=== PATIENT | female | born 1975 | race Two or more races ===

== ENCOUNTER → 2019-12-12 13:06 | Outpatient (BNVA) | payer OTHER, SELFPAY | PROVIDERS: PCP Internal Medicine; Referring Provider Internal Medicine; Visit Provider Physician Assistant | DX: E66.3 Overweight (principal); Z68.28 Body mass index [BMI] 28.0-28.9, adult; Z98.84 Bariatric surgery status | CPT/HCPCS: 99212 ==

== ENCOUNTER → 2020-03-25 08:16 | Outpatient (BNVA) | payer OTHER, SELFPAY | PROVIDERS: Visit Provider Physician Assistant ==

== ENCOUNTER 2020-04-14 12:12 | Outpatient (REF) | payer OTHER, SELFPAY ==
--- NOTE | ~2020-04-14 | MM_ITS ---
EXAMINATION: MM DIAGNOSTIC DIGITAL BREAST TOMOSYNTHESIS, BILATERAL US DIAGNOSTIC ULTRASOUND BREAST, LEFT CLINICAL INFORMATION: Probable benign left retroareolar nodule for follow-up. Due for yearly. No known family history breast cancer. The lifetime risk of breast cancer based on the Tyrer-Cuzick Model is 11%. COMPARISON: Mammography: 03/04/2019, 08/24/2018, 02/23/2018, 02/14/2018 (BI-RADS 0), 01/04/2017 (baseline); targeted left breast ultrasound 03/04/2019, 08/24/2018, 02/23/2018. TECHNIQUE: Digital breast tomosynthesis is performed in both the craniocaudal and mediolateral oblique views along with computer-aided detection (CAD). Synthesized 2D images are generated from the tomosynthesis. Additional left MLO view is provided. Ultrasound left breast is targeted to the periareolar region. Grayscale imaging and color Doppler are performed without and with harmonics. FINDINGS: There are scattered areas of fibroglandular density (ACR BI-RADS breast composition Category b). Parenchymal pattern is similar to prior exams. There is no developing density or interval mass or architectural abnormality. The left breast nodule outer periareolar region is stable. No abnormal calcifications. The skin contours are smooth. Axillary nodes are stable. There are some fine calcifications in the bilateral nodes similar to prior studies. Ultrasound left breast again shows periareolar nodule 5:00 position areolar margin under 1 cm similar in size and contour to prior studies. Again, there are scattered low level internal echoes. Today's exam shows scattered internal color flow representing change from prior studies. Therefore, ultrasound guided core biopsy is recommended to exclude papilloma. Results are discussed with the patient at time of visit. Results and recommendation called to medical field representative (Edel) for Dr. Clifford on 04/14/2020. MM/MM tomosynthesis diagnostic BI IMPRESSION: 1. Left: Although the periareolar nodule is stable in size and smooth in contour, there is scattered internal color flow on ultrasound. This represents change from prior studies. Possibility of a papilloma cannot be excluded. 2. Right: No mammographic evidence of malignancy. ASSESSMENT: BI-RADS 4: Suspicious (subcategory 4A: Low suspicion for malignancy) RECOMMENDATION: Ultrasound-guided core sampling left breast nodule. This patient's information was entered into a reminder system with a target due date for their next mammogram.
== END 2020-04-14 12:13 | disposition home or self-care (01) ==
LOC: HO.MAMMO 12:12
PROVIDERS: PCP Internal Medicine; Visit Provider Internal Medicine
DX: R92.1 Mammographic calcification found on diagnostic imaging of breast (principal)
CPT/HCPCS: 76642; 77062; 77066

== ENCOUNTER → 2020-04-15 08:11 | Outpatient (BNVA) | payer OTHER, SELFPAY | PROVIDERS: Visit Provider Dietitian, Registered ==

== ENCOUNTER → 2020-04-20 08:09 | Outpatient (BNVA) | payer OTHER, SELFPAY | PROVIDERS: Visit Provider Surgery | DX: R92.8 Other abnormal and inconclusive findings on diagnostic imaging of breast (principal) | CPT/HCPCS: 99202 ==

== ENCOUNTER 2020-04-21 07:44 | Outpatient (REF) | payer OTHER, SELFPAY ==
--- NOTE | ~2020-04-21 | MM_ITS ---
EXAMINATION: ULTRASOUND GUIDED CORE BIOPSY BREAST, LEFT POST PROCEDURE DIGITAL MAMMOGRAM, LEFT CLINICAL INFORMATION: Periareolar cystic nodule 5:00 position under 1 cm with scattered specular echoes with comet tail ring down and some color flow on Doppler. Margins are circumscribed. COMPARISON: Mammography and left breast ultrasound 04/14/2020. FINDINGS: Proper informed consent is obtained from the patient after discussion of the procedure, potential risks and complications, and alternatives. Patient was given an opportunity for questions. The patient appeared to understand. The patient consented to the procedure and signed the consent form. GUIDANCE: Ultrasound-guided; aseptic technique. LESION: Circumscribed nodule periareolar 5:00 position. APPROACH: Oblique lateral medial. ANESTHESIA: 8 mL 1% lidocaine. DERMATOTOMY: Single skin tonia dermatotomy performed. NEEDLE: 14-gauge Achieve core biopsy device with 13.5-gauge co-axial guide needle. CORES: 5. CLIP: HydroMARK; shape: butterfly. POST PROCEDURE UNILATERAL DIGITAL MAMMOGRAM: The post biopsy mammogram is performed in separate room using separate digital mammography equipment from the biopsy procedure. CC and ML views are obtained. There are scattered areas of fibroglandular density (breast composition category: b). The clip marker is in position. No gross hematoma. The patient tolerated the procedure well. No immediate complications. Home instructions reviewed with the patient. Final pathology results are pending. MM/MM diagnostic mammo unilat LT IMPRESSION: 1. Status post ultrasound-guided core biopsy left breast. 2. Clip placed: HydroMARK; shape: butterfly. 3. Pathology pending. An addendum report will be issued.
== END 2020-04-21 07:45 | disposition home or self-care (01) ==
LOC: HO.MAMMO 07:44
PROVIDERS: PCP Internal Medicine; Visit Provider Surgery
DX: R92.8 Other abnormal and inconclusive findings on diagnostic imaging of breast (principal)
CPT/HCPCS: 19083; 77065; 88305

== ENCOUNTER → 2020-04-29 14:33 | Outpatient (BNVA) | payer OTHER, SELFPAY | PROVIDERS: Visit Provider Surgery ==

== ENCOUNTER → 2020-05-22 08:12 | Outpatient (BNVA) | payer OTHER, SELFPAY | PROVIDERS: PCP Internal Medicine; Visit Provider Physician Assistant | DX: Z98.84 Bariatric surgery status (principal); E66.3 Overweight; F32.9 Major depressive disorder, single episode, unspecified ==

== ENCOUNTER 2020-09-18 13:21 | Outpatient (REF) | payer OTHER, SELFPAY ==
--- NOTE | ~2020-09-18 | MM_ITS ---
EXAMINATION: MM DIAGNOSTIC DIGITAL BREAST TOMOSYNTHESIS, LEFT US DIAGNOSTIC ULTRASOUND BREAST, LEFT CLINICAL INFORMATION: Follow-up benign left ultrasound guided biopsy 04/21/2020 to reestablish baseline post sampling. Pathology: Benign breast parenchyma with fibrocystic change, columnar cell change, and focal ductal dilatation suggestive of a benign cyst. Negative for atypical hyperplasia and carcinoma. A small focus suggestive of intraductal papillomatosis is present; however, an overt intraductal papilloma is not identified. The lifetime risk of breast cancer based on the Tyrer-Cuzick Model is 13%. COMPARISON: Mammography: 04/21/2020, 04/14/2020, 03/04/2019, ultrasound-guided core biopsy left breast 04/21/2020, targeted left breast ultrasound 04/14/2020 and 03/04/2019. TECHNIQUE: Digital breast tomosynthesis is performed in both the craniocaudal and mediolateral oblique views along with computer-aided detection (CAD). Synthesized 2D images are generated from the tomosynthesis. Additional left CC view is provided. Ultrasound left breast is targeted to the retroareolar region, biopsy site. Grayscale imaging and color Doppler are performed without and with harmonics. FINDINGS: There are scattered areas of fibroglandular density (ACR BI-RADS breast composition Category b). Parenchymal pattern is similar to prior studies. There is a HydroMARK biopsy clip with associated surrounding tubular hydrogel at the biopsy site. There is no developing density or interval mass or architectural abnormality. A few punctate calcifications are again noted in the area of sampling. There is no skin thickening or duct ectasia. The remainder of the breast is unremarkable. Ultrasound left breast demonstrates the HydroMARK biopsy clip with associated surrounding tubular hydrogel at the biopsy site. The lesion sampled is no longer seen with certainty. There is no duct ectasia. No abnormal color flow. Results are discussed with the patient at time of visit. MM/MM diagnostic mammo unilat LT IMPRESSION: 1. Biopsy clip marker in position. Sampled lesion no longer visible under ultrasound. 2. No mammographic developing density or recurrent mass. No duct ectasia. ASSESSMENT: BI-RADS 2: Benign RECOMMENDATION: Routine annual mammography screening, due in 6 months. This patient's information was entered into a reminder system with a target due date for their next mammogram.
== END 2020-09-18 13:22 | disposition home or self-care (01) ==
LOC: HO.MAMMO 13:21
PROVIDERS: PCP Internal Medicine; Visit Provider Surgery
DX: R92.8 Other abnormal and inconclusive findings on diagnostic imaging of breast (principal)
CPT/HCPCS: 76642; 77065

== ENCOUNTER 2020-11-20 11:05 | Outpatient (REF) | payer OTHER, SELFPAY ==
[2020-11-20 11:20] LABS: MANUAL DIFF FLAG NO
[2020-11-20 12:03] LABS: Basophils Percent Auto 0.5 % (0-2); Eosinophils Absolute Auto 0.1 X10*3/uL (0.0-0.4); Eosinophils Percent Auto 1.4 % (0-4); Hematocrit 40.1 % (37-47); Hemoglobin 12.8 g/dl (12.0-16.0); Imm Gran Abs Auto 0.01 X10*3/uL (0.00-0.03); Imm Gran Pct Auto 0.2 % (0.0-0.4); Lymphocytes Absolute Auto 1.9 X10*3/uL (1.2-4.9); Lymphocytes Percent Auto 32.8 % (20-40); Mean Corpuscular HGB Conc 31.9 g/dl (31.0-35.0); Mean Corpuscular Hemoglobin 27.5 pg (27.0-33.0); Mean Corpuscular Volume 86.2 fL (80-98); Mean Platelet Volume 11.5 fL (9.4-12.3); Monocytes Absolute Auto 0.3 X10*3/uL (0.1-1.2); Monocytes Percent Auto 5.3 % (2-11); Neutrophils Absolute Auto 3.4 X10*3/uL (2.0-8.3); Neutrophils Percent Auto 59.8 % (45-73); Platelet Count 242 X10*3/uL (160-400); Red Blood Count 4.65 X10*6/uL (4.20-5.50); Red Cell Distribution Width 13.5 % (11.0-16.0); White Blood Count 5.7 X10*3/uL (4.8-10.8)
[2020-11-20 12:12] LABS: Appearance Urine CLEAR; Color Urine YELLOW; Glucose Urine UA NEG (NEG); Leukocyte Esterase Urine NEG (NEG); Nitrite Urine NEG (NEG); Specific Gravity - Urine 1.015 (1.005-1.025); Urine Blood NEG (NEG); Urine Ketones NEG (NEG); Urine Protein NEG (NEG-TRACE)
[2020-11-20 12:28] LABS: Alanine Aminotransferase 12 U/L (0-31); Albumin Level 4.1 g/dL (3.5-5.0); Alkaline Phosphatase 53 U/L (39-117); Anion Gap 12 (12-20); Aspartate Amino Transferase 13 U/L (5-31); Blood Urea Nitrogen 10 mg/dL (9-16); Calcium 8.7 mg/dL (8.4-10.2); Carbon Dioxide 28 mmol/L (22-29); Chloride 104 mmol/L (96-108); Cholesterol 190 mg/dL; Estimated Glomerular Filt Rate > 60; Glucose Fasting 89 mg/dL (60-99); HDL Cholesterol 103 mg/dL; LDL Cholesterol Calculated 77 mg/dl; Sodium 140 mmol/L (135-145); Triglycerides 52 mg/dL
[2020-11-20 12:43] LABS: TSH reflex Free T4 0.79 uIU/mL (0.32-4.0); Vitamin D 25-OH Total 19.2 ng/mL (>30)
== END 2020-11-20 11:06 | disposition home or self-care (01) ==
LOC: HO.LAB 11:05
PROVIDERS: PCP Internal Medicine; Visit Provider Internal Medicine
DX: Z00.00 Encounter for general adult medical examination without abnormal findings (principal); E55.9 Vitamin D deficiency, unspecified; I10 Essential (primary) hypertension; E78.00 Pure hypercholesterolemia, unspecified
CPT/HCPCS: 36415; 80053; 80061; 81003; 82306; 84443; 85025

== ENCOUNTER → 2020-12-09 08:06 | Outpatient (BNVA) | payer OTHER, SELFPAY | PROVIDERS: PCP Internal Medicine; Visit Provider Physician Assistant | DX: Z98.84 Bariatric surgery status (principal); E66.3 Overweight; F32.9 Major depressive disorder, single episode, unspecified ==

== ENCOUNTER → 2020-12-24 08:00 | Outpatient (BNVA) | payer OTHER, SELFPAY | PROVIDERS: PCP Internal Medicine; Visit Provider Dietitian, Registered | DX: Z98.84 Bariatric surgery status (principal); E66.3 Overweight; F32.9 Major depressive disorder, single episode, unspecified ==

== ENCOUNTER → 2020-12-25 10:52 | Outpatient (REF) | payer OTHER, SELFPAY ==
--- NOTE | 2020-12-25 10:55 | HM_ITS ---
Conclusion: 1. Patient was monitored for total period of 2 days and 22 hours 2. Baseline rhythm was normal sinus rhythm with average heart rate of 76 beats per minute 3. No significant pauses or bradycardia noted 4. Total of 241 PACs accounting for 0.08% a cardiac for rare PACs 5. No patient reported events MTDD
== END ==
LOC: HO.CARD 10:52
PROVIDERS: PCP Internal Medicine; Visit Provider Internal Medicine
DX: R55 Syncope and collapse (principal); R00.2 Palpitations
CPT/HCPCS: 93242

== ENCOUNTER → 2020-12-28 08:02 | Outpatient (BNVA) | payer OTHER, SELFPAY | PROVIDERS: PCP Internal Medicine; Referring Provider Physician Assistant; Visit Provider Dietitian, Registered | DX: E66.9 Obesity, unspecified (principal); Z68.30 Body mass index [BMI] 30.0-30.9, adult | CPT/HCPCS: 97803 ==

== ENCOUNTER 2021-01-06 17:04 | Outpatient (REF) | payer OTHER, SELFPAY | END 2021-01-06 17:05 | disposition home or self-care (01) | LOC: HO.LNP 17:04 | PROVIDERS: Visit Provider Nurse Practitioner Family | DX: R35.0 Frequency of micturition (principal) | CPT/HCPCS: 87086 ==

== ENCOUNTER 2021-01-19 14:06 | Outpatient (REF) | payer OTHER, SELFPAY ==
--- NOTE | ~2021-01-19 | US_ITS ---
EXAMINATION: US ABDOMEN COMPLETE CLINICAL INFORMATION: Unspecified abdominal pain. COMPARISON: CT abdomen and pelvis with intravenous contrast only dated 08/11/2018. Ultrasound abdomen limited dated 10/28/2016. TECHNIQUE: Real-time imaging of the abdominal viscera. Technically difficult study secondary to bowel gas. FINDINGS: PANCREAS: The head of the pancreas is normal. The body and tail are not well visualized due to bowel gas. ABDOMINAL AORTA: The proximal, mid, and distal segments are normal in caliber. INFERIOR VENA CAVA: Visualized portions are normal. LIVER: Liver echotexture is increased. The liver is normal in size. The liver contour is normal. No focal hepatic lesion. There is no intrahepatic biliary duct dilatation seen. GALLBLADDER: Surgically absent. COMMON BILE DUCT: Normal in caliber measuring 0.26 cm in diameter. RIGHT KIDNEY: Normal. No hydronephrosis. No renal calculi or focal parenchymal lesions. The kidney measures 9.4 cm in maximum dimension. LEFT KIDNEY: Normal. No hydronephrosis. No renal calculi or focal parenchymal lesions. The kidney measures 9.8 cm in maximum dimension. SPLEEN: Normal. The spleen measures 9.8 cm in maximum dimension. FREE FLUID: None. US/US abdomen complete IMPRESSION: Echogenic liver probably representing fatty infiltration. Limited visualization of the pancreas.
== END 2021-01-19 14:07 | disposition home or self-care (01) ==
LOC: HO.HMGCX 14:06
PROVIDERS: PCP Internal Medicine; Visit Provider Nurse Practitioner Family
DX: R10.9 Unspecified abdominal pain (principal)
CPT/HCPCS: 76700

== ENCOUNTER 2021-02-11 14:52 | Outpatient (REF) | payer OTHER, SELFPAY ==
--- NOTE | ~2021-02-11 | CT_ITS ---
EXAMINATION: CT ABDOMEN AND PELVIS WITH CONTRAST CLINICAL INFORMATION: Abdominal pain. COMPARISON: 08/11/2018 TECHNIQUE: Multidetector volumetric images were obtained from the superior aspect of the liver through the pubic symphysis following administration 85 mL of Omnipaque 350 intravenous contrast. Sagittal and coronal reformatted images were obtained on the technologist's workstation. Oral contrast: Yes This CT examination was performed using dose optimization techniques as appropriate, variously including the following: *Automated exposure control *Adjustment of mA and/or kV according to patient size (this includes techniques or standardized protocols for targeted exams where dose is matched to indication/reason for exam; i.e. extremities or head) *Use of iterative reconstruction technique DLP: 748 mGy-cm FINDINGS: LUNG BASES: A 4 mm nodule is again seen in the right lower lobe in a subpleural region, likely an intrapulmonary lymph node. This is stable at time criteria. LIVER, GALLBLADDER, AND BILIARY TREE: The liver is normal in size size and shape. Focal hypoattenuation near the falciform ligament likely corresponds to focal fatty infiltration or aberrant venous inflow.. No focal hepatic lesion or biliary ductal dilatation is present. Gallbladder is surgically absent. No biliary ductal dilatation. PANCREAS: Unremarkable. SPLEEN: Unremarkable. ADRENAL GLANDS: Unremarkable. KIDNEYS AND URETERS: The kidneys are normal in size, shape, and attenuation. No hydronephrosis, hydroureter, or calculi seen. No perinephric stranding. BLADDER: Unremarkable. GASTROINTESTINAL TRACT: Postsurgical changes of prior gastric sleeve bariatric surgery are apparent with chain kenna along the greater curvature of the stomach. Stomach, small bowel, and colon are normal in caliber. No appreciable bowel wall thickening or surrounding fat stranding. No intraperitoneal free fluid or free air. ABDOMINAL WALL: No significant hernia is appreciated. LYMPH NODES: Normal. VASCULAR: Unremarkable. PELVIC VISCERA: Uterus is surgically absent. No adnexal lesions are identified. OSSEOUS STRUCTURES: Mild multilevel degenerative spondylosis in the thoracolumbar spine. Slight anterior wedging of the T11 and T12 vertebral bodies is favored to be chronic and developmental in nature. There is a neurostimulator device at the left S3 foramen with the units in the right posterior gluteal soft tissues. 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 No acute osseous findings. CT/CT abdomen pelvis w con IMPRESSION: No CT evidence of acute intra-abdominal or intrapelvic abnormalities. Status post sleeve gastrectomy and cholecystectomy without appreciable findings of complications. A 4 mm nodule in the right lower lobe likely corresponds to a intrapulmonary lymph node and is stable x2 years According to the UPDATED 2017 Fleischner Society recommendations, this is benign by time criteria.
[2021-02-11] MEDS: iohexoL 350 MG/ML 100 ML INFUS..BTL IV (17:15)
[2021-02-11] MEDS: Barium Sulfate Oral (Berry) 450 ML ORAL.SUSP 900 ML PO (17:15)
== END 2021-02-11 14:53 | disposition home or self-care (01) ==
LOC: HO.CT 14:52
PROVIDERS: PCP Internal Medicine; Visit Provider Physician Assistant
DX: R10.33 Periumbilical pain (principal); K59.00 Constipation, unspecified; Z98.84 Bariatric surgery status
CPT/HCPCS: 74177; Q9967

== ENCOUNTER 2021-02-16 10:55 | Outpatient (REF) | payer OTHER, SELFPAY ==
[2021-02-16 11:07] LABS: MANUAL DIFF FLAG NO
[2021-02-16 12:15] LABS: Basophils Percent Auto 0.5 % (0-2); Eosinophils Absolute Auto 0.1 X10*3/uL (0.0-0.4); Eosinophils Percent Auto 0.8 % (0-4); Hematocrit 39.5 % (37.0-47.0); Hemoglobin 12.6 g/dl (12.0-16.0); Imm Gran Abs Auto 0.01 X10*3/uL (0.00-0.03); Imm Gran Pct Auto 0.2 % (0.0-0.4); Lymphocytes Absolute Auto 1.5 X10*3/uL (1.2-4.9); Lymphocytes Percent Auto 25.7 % (20-40); Mean Corpuscular HGB Conc 31.9 g/dl (31.0-35.0); Mean Corpuscular Hemoglobin 28.1 pg (27.0-33.0); Mean Corpuscular Volume 88.2 fL (80.0-98.0); Mean Platelet Volume 11.4 fL (9.4-12.3); Monocytes Absolute Auto 0.4 X10*3/uL (0.1-1.2); Monocytes Percent Auto 6.3 % (2-11); Neutrophils Percent Auto 66.5 % (45-73); Platelet Count 226 X10*3/uL (160-400); Red Blood Count 4.48 X10*6/uL (4.20-5.50); Red Cell Distribution Width 12.5 % (11.0-16.0)
[2021-02-16 12:40] LABS: Alanine Aminotransferase 17 U/L (0-31); Albumin Level 4.1 g/dL (3.5-5.0); Alkaline Phosphatase 52 U/L (39-117); Anion Gap 10 (12-20); Aspartate Amino Transferase 13 U/L (5-31); Bilirubin Total 1.2 mg/dL (0.0-1.0); Blood Urea Nitrogen 12 mg/dL (9-16); C Reactive Protein 1.32 mg/dL (< or = 0.50); Calcium 8.9 mg/dL (8.4-10.2); Carbon Dioxide 30 mmol/L (22-29); Chloride 105 mmol/L (96-108); Estimated Glomerular Filt Rate > 60; Glucose Random 84 mg/dL (60-115); Potassium 4.2 mmol/L (3.3-5.1); Sodium 141 mmol/L (135-145); Total Protein 6.9 g/dL (6.5-8.0)
[2021-02-16 13:12] LABS: Procalcitonin < 0.02 ng/mL
[2021-02-16 13:38] LABS: Erythrocyte Sedimentation Rate 19 MM/HR (0-20)
== END 2021-02-16 10:56 | disposition home or self-care (01) ==
LOC: HO.LAB 10:55
PROVIDERS: PCP Internal Medicine; Visit Provider Nurse Practitioner Acute Care
DX: R19.8 Other specified symptoms and signs involving the digestive system and abdomen (principal)
CPT/HCPCS: 36415; 80053; 84145; 85025; 85652; 86140

== ENCOUNTER 2021-02-23 14:43 | Outpatient (REF) | payer OTHER, SELFPAY ==
[2021-02-23 16:46] LABS: Bilirubin Direct 0.4 mg/dL (0.0-0.5)
[2021-02-23 18:08] LABS: Folate 10.5 ng/mL (> or = 4.0); Vitamin B12 187 pg/mL (200-900)
[2021-02-26 06:46] LABS: Transglutaminase Ab IgG <1.0 U/mL; Transglutaminase IgA <1.0 U/mL
== END 2021-02-23 14:44 | disposition home or self-care (01) ==
LOC: CF 14:43
PROVIDERS: PCP Internal Medicine; Referring Provider Internal Medicine; Visit Provider Nurse Practitioner Family
DX: R10.84 Generalized abdominal pain (principal); R10.11 Right upper quadrant pain; R10.33 Periumbilical pain; R19.7 Diarrhea, unspecified; R14.0 Abdominal distension (gaseous); R17 Unspecified jaundice; K21.9 Gastro-esophageal reflux disease without esophagitis; K59.01 Slow transit constipation; K58.2 Mixed irritable bowel syndrome
CPT/HCPCS: 36415; 82248; 82607; 82746; 86364; 99202

== ENCOUNTER 2021-02-24 10:12 | Outpatient (REF) | payer OTHER, SELFPAY | END 2021-02-24 10:13 | disposition home or self-care (01) | LOC: HO.LAB 10:12 | PROVIDERS: Visit Provider Internal Medicine | DX: Z13.89 Encounter for screening for other disorder (principal) | CPT/HCPCS: 87635; C9803 ==

== ENCOUNTER 2021-02-25 15:15 | Outpatient (REF) | payer OTHER, SELFPAY ==
[2021-03-03 20:30] LABS: Calprotectin, Fecal 75 mcg/g
[2021-03-03 22:22] LABS: Pancreatic Elastase-1 >500 mcg/g
== END 2021-02-25 15:16 | disposition home or self-care (01) ==
LOC: HO.LNP 15:15
PROVIDERS: Visit Provider Nurse Practitioner Family
DX: R10.9 Unspecified abdominal pain (principal); R79.82 Elevated C-reactive protein (CRP); R19.7 Diarrhea, unspecified
CPT/HCPCS: 82656; 83993

== ENCOUNTER → 2021-03-22 08:08 | Outpatient (BNVA) | payer OTHER, SELFPAY | PROVIDERS: PCP Internal Medicine; Visit Provider Physician Assistant | DX: Z98.84 Bariatric surgery status (principal); E66.3 Overweight; F32.9 Major depressive disorder, single episode, unspecified ==

== ENCOUNTER → 2021-03-30 10:49 | Outpatient (BNVA) | payer OTHER, SELFPAY | PROVIDERS: PCP Internal Medicine; Referring Provider Internal Medicine; Visit Provider Nurse Practitioner Family | DX: R10.33 Periumbilical pain (principal); R10.84 Generalized abdominal pain; K59.01 Slow transit constipation; K21.9 Gastro-esophageal reflux disease without esophagitis | CPT/HCPCS: 99212 ==

== ENCOUNTER → 2021-04-29 10:28 | Outpatient (BNVA) | payer OTHER, SELFPAY | PROVIDERS: PCP Internal Medicine; Referring Provider Internal Medicine; Visit Provider Surgery | DX: R10.33 Periumbilical pain (principal) | CPT/HCPCS: 99212 ==

== ENCOUNTER → 2021-05-14 08:10 | Outpatient (BNVA) | payer OTHER, SELFPAY | PROVIDERS: PCP Internal Medicine; Visit Provider Physician Assistant | DX: E66.9 Obesity, unspecified (principal); K59.01 Slow transit constipation; Z71.3 Dietary counseling and surveillance; Z98.84 Bariatric surgery status | CPT/HCPCS: Q3014 ==

== ENCOUNTER 2021-08-20 12:32 | Outpatient (REF) | payer OTHER, SELFPAY ==
[2021-08-20 13:07] LABS: MANUAL DIFF FLAG NO
[2021-08-20 13:19] LABS: Basophils Percent Auto 0.5 % (0-2); Eosinophils Absolute Auto 0.1 X10*3/uL (0.0-0.4); Eosinophils Percent Auto 1.2 % (0-4); Hematocrit 38.3 % (37.0-47.0); Hemoglobin 12.4 g/dl (12.0-16.0); Imm Gran Abs Auto 0.02 X10*3/uL (0.00-0.03); Imm Gran Pct Auto 0.3 % (0.0-0.4); Lymphocytes Absolute Auto 1.6 X10*3/uL (1.2-4.9); Mean Corpuscular HGB Conc 32.4 g/dl (31.0-35.0); Mean Corpuscular Hemoglobin 28.2 pg (27.0-33.0); Mean Platelet Volume 11.1 fL (9.4-12.3); Monocytes Absolute Auto 0.3 X10*3/uL (0.1-1.2); Monocytes Percent Auto 5.8 % (2-11); Neutrophils Absolute Auto 3.8 x10*3/uL (2.0-8.3); Neutrophils Percent Auto 65.2 % (45-73); Platelet Count 222 X10*3/uL (160-400); Red Cell Distribution Width 12.5 % (11.0-16.0); White Blood Count 5.9 X10*3/uL (4.8-10.8)
[2021-08-20 14:14] LABS: Alanine Aminotransferase 12 U/L (0-31); Alkaline Phosphatase 59 U/L (39-117); Anion Gap 12 (12-20); Aspartate Amino Transferase 12 U/L (5-31); Bilirubin Total 1.2 mg/dL (0.0-1.0); Blood Urea Nitrogen 15 mg/dL (9-16); Calcium 8.2 mg/dL (8.4-10.2); Carbon Dioxide 30 mmol/L (22-29); Chloride 103 mmol/L (96-108); Cholesterol 189 mg/dL; Estimated Glomerular Filt Rate > 60; Glucose Fasting 68 mg/dL (60-99); HDL Cholesterol 97 mg/dL; LDL Cholesterol Calculated 82 mg/dl; Potassium 3.9 mmol/L (3.3-5.1); Sodium 141 mmol/L (135-145); Total Protein 6.8 g/dL (6.5-8.0); Triglycerides 53 mg/dL
[2021-08-20 14:16] LABS: Free T4 (Free Thyroxine) 1.34 ng/dL (0.71-1.85); Thyroid Stimulating Hormone 0.64 uIU/mL (0.32-4.0); Vitamin D 25-OH Total 18.3 ng/mL (>30)
[2021-08-20 14:23] LABS: Folate 11.7 ng/mL (> or = 4.0); Vitamin B12 209 pg/mL (200-900)
[2021-08-20 14:49] LABS: Appearance Urine CLEAR; Color Urine YELLOW; Glucose Urine UA NEG (NEG); Leukocyte Esterase Urine NEG (NEG); Nitrite Urine NEG (NEG); PH 6.5 (5.0-8.0); Urine Blood NEG (NEG); Urine Ketones NEG (NEG); Urine Protein NEG (NEG-TRACE)
[2021-08-25 13:01] LABS: Methylmalonic Acid 109 nmol/L (87-318)
== END 2021-08-20 12:33 | disposition home or self-care (01) ==
LOC: HO.LAB 12:32
PROVIDERS: PCP Internal Medicine; Visit Provider Nurse Practitioner Family
DX: K59.01 Slow transit constipation (principal); K58.2 Mixed irritable bowel syndrome; K21.9 Gastro-esophageal reflux disease without esophagitis; E78.00 Pure hypercholesterolemia, unspecified; E03.9 Hypothyroidism, unspecified; E53.8 Deficiency of other specified B group vitamins; I10 Essential (primary) hypertension; E55.9 Vitamin D deficiency, unspecified
CPT/HCPCS: 36415; 80053; 80061; 81003; 82306; 82607; 82746; 83921; 84439; 84443; 85025; 99212

== ENCOUNTER 2021-09-22 09:13 | Outpatient (REF) | payer OTHER, SELFPAY ==
--- NOTE | ~2021-09-22 | MM_ITS ---
EXAMINATION: MM SCREENING DIGITAL BREAST TOMOSYNTHESIS, BILATERAL CLINICAL INFORMATION: Screening. Asymptomatic. Benign left breast biopsy 04/21/2020. The lifetime risk of breast cancer based on the Tyrer-Cuzick Model is 21%. COMPARISON: Mammography: 09/18/2020, 04/21/2020, 04/14/2020, 03/04/2019, 08/24/2018, 02/23/2018, 02/14/2018; ultrasound left breast 02/23/2018, 01/04/2017, ultrasound-guided core biopsy 04/21/2020, and follow-up left ultrasound 09/18/2020. TECHNIQUE: Digital breast tomosynthesis is performed in both the craniocaudal and mediolateral oblique views along with computer-aided detection (CAD). Synthesized 2D images are generated from the tomosynthesis. FINDINGS: There are scattered areas of fibroglandular density (ACR BI-RADS breast composition Category b). There are no significant masses, abnormal calcifications, or other abnormalities. Biopsy clip marker present anterior central 3:00 left breast. The skin contours are unremarkable. There are some granulomatous calcifications or tattoo pigment artifact overlying the bilateral axillary nodes similar to prior studies. No lymphadenopathy. MM/MM tomosynthesis screening BI IMPRESSION: No mammographic evidence of malignancy. ASSESSMENT: BI-RADS 2: Benign RECOMMENDATION: Routine annual mammography screening. This patient's information was entered into a reminder system with a target due date for their next mammogram.
== END 2021-09-22 09:14 | disposition home or self-care (01) ==
LOC: HO.MAMMO 09:13
PROVIDERS: PCP Internal Medicine; Visit Provider Internal Medicine
DX: Z12.31 Encounter for screening mammogram for malignant neoplasm of breast (principal)
CPT/HCPCS: 77063; 77067

== ENCOUNTER 2021-09-23 12:50 | Outpatient (REF) | payer OTHER, SELFPAY ==
--- NOTE | ~2021-09-23 | XR_ITS ---
EXAMINATION: XR HAND, RIGHT CLINICAL INFORMATION: Reason for examination is M79.89 -- Other specified soft tissue disorders. COMPARISON: None TECHNIQUE: PA, lateral, and oblique views of the right hand. XR/XR hand RT min 3V FINDINGS AND IMPRESSION: No acute fracture, subluxation or focal soft tissue swelling. No erosions or periostitis. The joint spaces are generally well-preserved. A 0.2 cm calcification projecting volar to the PIP joint of the index finger is of uncertain significance, possibly sequela of remote minor trauma. No radiopaque foreign body.
== END 2021-09-23 12:51 | disposition home or self-care (01) ==
LOC: HO.HMGCX 12:50
PROVIDERS: PCP Internal Medicine; Visit Provider Internal Medicine
DX: M79.89 Other specified soft tissue disorders (principal)
CPT/HCPCS: 73130

== ENCOUNTER → 2021-12-31 08:55 | Outpatient (BNVA) | payer OTHER, SELFPAY | PROVIDERS: PCP Internal Medicine; Visit Provider Nurse Practitioner Family | DX: Z12.11 Encounter for screening for malignant neoplasm of colon (principal); K59.01 Slow transit constipation; R10.84 Generalized abdominal pain; K21.9 Gastro-esophageal reflux disease without esophagitis | CPT/HCPCS: 99212 ==

== ENCOUNTER → 2022-04-05 09:59 | Outpatient (BNVA) | payer OTHER, SELFPAY | PROVIDERS: PCP Internal Medicine; Visit Provider Nurse Practitioner Family | DX: K59.01 Slow transit constipation (principal); K21.9 Gastro-esophageal reflux disease without esophagitis; Z79.899 Other long term (current) drug therapy | CPT/HCPCS: 99212 ==

== ENCOUNTER → 2022-05-04 08:59 | Outpatient (BNVA) | payer OTHER, SELFPAY | PROVIDERS: PCP Internal Medicine; Visit Provider Nurse Practitioner Family | DX: Z12.11 Encounter for screening for malignant neoplasm of colon (principal); K59.01 Slow transit constipation; K21.9 Gastro-esophageal reflux disease without esophagitis | CPT/HCPCS: 99212 ==

== ENCOUNTER 2022-05-19 09:20 | Day surgery (SDC) | payer OTHER, SELFPAY ==
[2022-05-13 17:40] VITALS: BMI 35.0
[2022-05-19 09:38] VITALS: BP 121/63; PULSE 61; RESP 18; TEMP 36.1; O2SAT 97
--- NOTE | 2022-05-19 09:58 | MHC.SHP ---
Pre-Procedural Eval Section A Date of Service: 05/19/22 Section B Chief Complaint: GERD, colon screening Details of Present Illness: she also has a hx of chronic constipation with forceful pushing since childhood. Relevant Family History (Specify if Yes): No Relevant Social History: None Present Medications: see Short Stay Collaborative assessment Medical History: Significant History (Abnormal ultrasound of breast Acquired hypothyroidism Anxiety Cervical disc disease Constipation Depression Fibromyalgia GERD (gastroesophageal reflux disease) H/O radioactive iodine thyroid ablation (~2008) Insomnia Low back pain Lumbar spondylosis Obesity (BMI 30-39.9) Overweight (BMI 25.0-29.9) P) History of Previous Operations: Relevant previous surgery/procedure and date(s) (H/O hand surgery H/O thyroidectomy (~2008) History of arthroscopy of left shoulder (~09/2016) History of arthroscopy of right shoulder (~08/2015) S/P hysterectomy S/P laparoscopic sleeve gastrectomy (~03/16/17)) Allergies: Allergies Allergy/AdvReac Type Severity Reaction Status Date / Time gabapentin AdvReac Mild drowsiness Verified 05/04/22 09:26 Review of Systems Sugical H&P ROS: Negative: Constitution, Cardiovascular, Respiratory, Neurological, Psychiatric, Hem-Onc, Allergic/Immunologic, Gastrointestinal, Genitourinary, Musculoskeletal, Integumentary, Endocrine and Eyes/Ears/Nose/Throat Exam Surgical H&P Exam: Normal: HEENT, Normal: Heart, Normal: Lungs, Normal: Extremities, Normal: Abdomen, Normal: Skin and Normal: Neurological Plan Diagnosis/Plan: Unchanged I have reviewed the history and physical and performed a pertinent physical examination on my patient. No changes have occurred unless specified. Will take Rectal bx to r/o hirschprungs Time Spent With Patient Time: Total time managing care of this patient today ____ minutes.
[2022-05-19] MEDS: Lactated Ringers 1,000 ML 50 ML IVCONT (10:16)
--- NOTE | 2022-05-19 10:41 | W.PM.OPN ---
Operative Note Operative Note Date of Service: 05/19/22 Narrative: Operative Information Procedure Description: EGD, Colonoscopy Indication: GERD, screening Anesthesia: MAC FLEXIBLE TRANSORAL UPPER GASTROINTESTINAL ENDOSCOPY AND COLONOSCOPY PROCEDURE NOTE UPPER ENDOSCOPY Consent: Indications for the procedure and potential complications of bleeding, perforation, reaction to medications and missed diagnosis were discussed with the patient and informed consent was obtained. Instrument: Olympus GIF H 190 J mid size upper endoscope Monitoring: Vital signs and clinical assessment, continuous EKG monitoring, Pulse oximetry, Carbon Dioxide monitoring and blood pressure monitoring were done throughout the procedure. Procedure: The patient was placed in the left lateral decubitis position and pre-procedure medications were administered and a bite block was placed. The endoscope was inserted into the mouth and advanced under direct vision to the third part of duodenum. A careful inspection was made as the upper endoscope was withdrawn including a retroflexed examination of the proximal stomach; Findings and interventions are described below. Findings: Larynx:normal Esophagus: GE junction at 37 cm, diaphragm hiatus at 37 cm, mild erythema at GEJ, bx taken from here and from distal/proximal esophagus Stomach: Patchy erythema. Biopsies were obtained. Grade 2 flap valve on retroflexed examination of the cardia. Duodenum: Normal bulb and descending duodenum, Intervention: Biopsies as noted above COLONOSCOPY Instrument: Olympus variable stiffness pediatric scope 190L Colonoscopy Monitoring: Vital signs and clinical assessment, continuous EKG monitoring, Pulse oximetry, Carbon Dioxide monitoring and blood pressure monitoring were done throughout the procedure. Colon withdrawal time was 10 minutes. Procedure: The patient was placed in the left lateral decubitis position and pre-procedure medications were administered. After a digital rectal examination of the ano-rectum, the video colonoscope was inserted into the rectum and advanced through the colon to the cecum/TI. The colonoscope was slowly withdrawn in a retrograde panoramic fashion and the colon mucosa was carefully examined including a retroflexed view of the rectum. Findings and interventions are described below. Procedure Difficulty:moderate due to v tight angles in sigmoid and tortuous, redundant colon Findings: Terminal Ileum-normal Cecum:normal Ascending Colon: normal Transverse Colon -normal Descending Colon:normal Sigmoid Colon: normal, v tight angles Rectum: Retroflexion with small internal hemorrhoids, grade I, mucosal samples taken using cold snare to r/o hirschsprungs Anorectum - normal Colon preparation: Arnold Bowel Preparation Scale Right colon; 2 Transverse colon: 2 Left colon; 2 (0 = Unprepared colon segment with mucosa not seen due to solid stool that cannot be cleared. 1 = Portion of mucosa of the colon segment seen, but other areas of the colon segment not well seen due to staining, residual stool and/or opaque liquid. 2 = Minor amount of residual staining, small fragments of stool and/or opaque liquid, but mucosa of colon segment seen well. 3 = Entire mucosa of colon segment seen well with no residual staining, small fragments of stool or opaque liquid) Impression and Post Procedure Diagnosis: Endoscopy Findings: gastritis esophagitis Colonoscopy Findings: internal hemorrhoids tortuous colon Plan: Await Pathology results Repeat Colonoscopy in 10 years or earlier if clinically indicated High fiber diet leaflet avoid straining at stool, epsom salts and sitz bath, anusol supps or cream GERD precautions Above findings were reviewed with the patient and relevant handouts were provided if indicated.
--- NOTE | 2022-05-19 10:44 | HO.ANESPROP2 ---
HPI - Anesthesia Eval Consult details Narrative: 46 F for egd colonoscopy PMFSH Active Problems Active Problems: All Active Problems (Updated 11/15/21 @ 10:42 by Tez Clifford MD) Colon cancer screening (Acute) Flexor tenosynovitis of finger (Acute) Cervical disc disease (Acute) Lumbar spondylosis (Acute) Swelling of right hand (Acute) Anxiety (Acute) Vitamin D deficiency (Acute) Bilateral foot pain (Acute) Chronic back pain (Acute) Umbilical pain (Acute) Vitamin B12 deficiency (Acute) COVID-19 (Acute) MAYTE (generalized anxiety disorder) (Acute) Steatosis, liver (Acute) Pain with bowel movements (Acute) Abdominal wall cellulitis (Acute) Umbilical pain (Acute) Abdominal pain (Acute) Urinary frequency (Acute) Obesity (BMI 30-39.9) (Acute) Constipation (Acute) Syncope (Acute) Annual physical exam (Acute) Abnormal ultrasound of breast (Acute) S/P laparoscopic sleeve gastrectomy (Acute ~03/16/17) Overweight (BMI 25.0-29.9) (Acute) Depression (Acute) Insomnia (Acute) Thoracic vertebral fracture (Acute) Patellofemoral arthritis (Acute) GERD (gastroesophageal reflux disease) (Acute) Acquired hypothyroidism (Acute) Fibromyalgia (Acute) Low back pain (Acute) Past Medical History Medical History Abnormal ultrasound of breast Acquired hypothyroidism Anxiety Cervical disc disease Constipation Depression Fibromyalgia GERD (gastroesophageal reflux disease) H/O radioactive iodine thyroid ablation (~2008) Insomnia Low back pain Lumbar spondylosis Obesity (BMI 30-39.9) Overweight (BMI 25.0-29.9) Patellofemoral arthritis Thoracic vertebral fracture Vitamin B12 deficiency Vitamin D deficiency Family History Family History Father Cerebrovascular accident (CVA) Mother Diabetes Hypertension Family history of problems with anesthesia: No Surgical History Surgical History H/O hand surgery H/O thyroidectomy (~2008) History of arthroscopy of left shoulder (~09/2016) History of arthroscopy of right shoulder (~08/2015) S/P hysterectomy S/P laparoscopic sleeve gastrectomy (~03/16/17) History of Problems with Anesthesia: No Social History Social History Housing: House Alcohol intake: never Patient Tobacco Use Status: Never used Tobacco Second Hand Smoke Exposure: Yes Use of substances other than those prescribed or required for medical reasons: No Are you DNR?: No Advance Directives: No Advance Directives Information Provided: Yes Advance Directives on File: No Recently lost weight without trying: No Nutrition Risks: No Nutritional Risk service: No Current occupational status: disabled Cognitive needs: No Hearing needs: No Vision needs: Yes Meds Allergies Allergy/AdvReac Type Severity Reaction Status Date / Time gabapentin AdvReac Mild drowsiness Verified 05/04/22 09:26 Active Medications: Current Medications Lactated Ringer's (Lr) 1,000 mls @ 50 mls/hr IVCONT .Q20H STACEY Last Admin: 05/19/22 10:16 Dose: 50 mls/hr Home Medications Medication Instructions Recorded Confirmed Last Taken Type calcium carbonate 500 mg calcium 500 mg PO BID 11/27/19 05/13/22 Unknown History (1,250 mg) chewable tablet levothyroxine 175 mcg tablet 175 mcg PO DAILY 11/27/19 05/13/22 Unknown History Exam Exam Date and Time: May 19, 2022 1044 Height,Weight and Vital Signs: Height 5 ft 3 in Weight 198 lb Last Vital Signs Temp 97 F 05/19/22 09:38 Pulse 61 05/19/22 09:38 Resp 18 05/19/22 09:38 BP 121/63 05/19/22 09:38 Pulse Ox 97 05/19/22 09:38 O2 Del Method Room Air 05/19/22 09:38 Airway Mallampati Class: II TM Dist: >3cm Neck ROM: Full Loose/Missing/Broken Teeth: No Assessment and Plan Assessment Anesthesia Assessment: Anesthesia Plan Discussed and Chart Reviewed Final Anesthetic Review Family History of Problems with Anesthesia: No History of Problems with Anesthesia: No NPO: Yes ASA Class: III Final Preanesthetic Review: No Changes in Pt Med Stat, Meds/Allgs Chart Reviewed, Consent Obtained/Reviewed and Anes Risks/Benef Reviewed Patient Risk: Intermediate Procedure Risk: Low Anesthetic Plan Anesthetic Plan: MAC: Disposition: Standard PACU
[2022-05-19 11:32] VITALS: BP 120/61; PULSE 70; RESP 20; TEMP 36.4; O2SAT 100
[2022-05-19 11:47] VITALS: BP 123/72; PULSE 62; RESP 20; TEMP 36.3; O2SAT 100
== END 2022-05-19 12:23 | disposition home or self-care (01) ==
PROVIDERS: PCP Internal Medicine; Visit Provider Internal Medicine Gastroenterology
PROC: (CPT 45380; principal; 2022-05-19 11:50)
DX: Z12.11 Encounter for screening for malignant neoplasm of colon (principal); K64.0 First degree hemorrhoids; K59.01 Slow transit constipation; Q43.8 Other specified congenital malformations of intestine; K21.00 Gastro-esophageal reflux disease with esophagitis, without bleeding; K29.70 Gastritis, unspecified, without bleeding; Z79.899 Other long term (current) drug therapy
CPT/HCPCS: 45380; 43239; 88305; 88342

== ENCOUNTER 2022-05-24 09:05 | Outpatient (REF) | payer OTHER, SELFPAY ==
[2022-05-24 11:51] LABS: Alanine Aminotransferase 12 U/L (0-31); Albumin Level 3.9 g/dL (3.5-5.0); Alkaline Phosphatase 52 U/L (39-117); Anion Gap 12 (12-20); Aspartate Amino Transferase 12 U/L (5-31); Bilirubin Total 1.2 mg/dL (0.0-1.0); Blood Urea Nitrogen 12 mg/dL (9-16); Calcium 8.1 mg/dL (8.4-10.2); Carbon Dioxide 27 mmol/L (22-29); Chloride 107 mmol/L (96-108); Cholesterol 152 mg/dL; Estimated Glomerular Filt Rate > 60; Glucose Fasting 86 mg/dL (60-99); HDL Cholesterol 80 mg/dL; LDL Cholesterol Calculated 65 mg/dl; Potassium 4.3 mmol/L (3.3-5.1); Sodium 142 mmol/L (135-145); Total Protein 6.4 g/dL (6.5-8.0); Triglycerides 38 mg/dL
[2022-05-24 12:03] LABS: Folate 10.5 ng/mL (> or = 4.0); Free T4 (Free Thyroxine) 1.08 ng/dL (0.71-1.85); Thyroid Stimulating Hormone 0.81 uIU/mL (0.32-4.0); Vitamin B12 272 pg/mL (200-900); Vitamin D 25-OH Total 14.9 ng/mL (>30)
== END 2022-05-24 09:06 | disposition home or self-care (01) ==
LOC: HO.LAB 09:05
PROVIDERS: PCP Internal Medicine; Visit Provider Internal Medicine
DX: E55.9 Vitamin D deficiency, unspecified (principal); E53.8 Deficiency of other specified B group vitamins; E03.9 Hypothyroidism, unspecified; E78.00 Pure hypercholesterolemia, unspecified
CPT/HCPCS: 36415; 80053; 80061; 82306; 82607; 82746; 84439; 84443

== ENCOUNTER → 2022-06-03 09:45 | Outpatient (BNVA) | payer OTHER, SELFPAY | PROVIDERS: PCP Internal Medicine; Visit Provider Nurse Practitioner Family | DX: K59.01 Slow transit constipation (principal); K29.50 Unspecified chronic gastritis without bleeding; K20.90 Esophagitis, unspecified without bleeding; Z98.890 Other specified postprocedural states | CPT/HCPCS: 99212 ==

== ENCOUNTER 2022-08-26 09:51 | Outpatient (AMB) | payer OTHER, SELFPAY ==
[2022-08-26 10:17] VITALS: BP 131/63; PULSE 63; BMI 33.3
--- NOTE | 2022-08-26 10:17 | A.OFFVIS_ITS ---
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 She is taking Senokot and does not feel like she empties her bowels completely. Patient is not taking Colace. I will send script for MiraLax patient will take it in the morning. Patient was encouraged increase fluid intake and activity to promote better bowel motility. Status post colonoscopy No polyps found, patient will need to return for colorectal screening in 10 years, sooner if clinically necessary. Gastritis Mild inactive gastritis. Patient will start taking her pantoprazole every morning. Patient can take famotidine at bedtime. Discussed with patient avoiding dietary triggers late night snacking. Esophagitis Mild chronic inflammation seen at GE junction, biopsy from proximal esophagus negative for inflammation. Patient was encouraged not to go to bed after eating. Staying upright for minimal 3 hours after meals discussed with patient. Patient was encouraged to take pantoprazole in the morning half an hour before breakfast. Patient will take famotidine at bedtime. She will return to the office in 3 months to re-evaluate. Sooner on as needed basis. She is agreeable to this plan and verbalizes understanding of instructions. She was given the opportunity to ask questions and all questions answered. ? Thank you for allowing me to participate in her care Plan Medications New polyethylene glycol 3350 (Miralax) 17 grams PO DAILY 510 grams 2RF Refilled pantoprazole take one tablet half an hour before breakfast 40 mg PO DAILY 30 tabs 2RF K21.9 TODAY'S VISIT Patient is here today for follow-up. Patient reports that since last time I have seen her she has been moving her bowels better, however in the last month or so patient states that she has been having epigastric discomfort postprandially and loose stools. Patient denies any nausea or vomiting. Reports occasional dyspepsia without dysphagia or odynophagia. Patient was referred to bariatric surgeon to go back in follow-up with them. Patient has not seen them for over a year. Currently patient is taking pantoprazole in the morning and famotidine at night time. Patient denies melena, hematochezia, unintentional weight loss or ribbon like stools. Patient states that she stop taking Senokot as she is moving her bowels better now. Patient denies any other GI concerning symptoms. [facility] Medical History Abnormal ultrasound of breast Acquired hypothyroidism Anxiety Cervical disc disease Constipation Depression Fibromyalgia GERD (gastroesophageal reflux disease) H/O radioactive iodine thyroid ablation (~2008) Insomnia Low back pain Lumbar spondylosis Obesity (BMI 30-39.9) Overweight (BMI 25.0-29.9) Patellofemoral arthritis Thoracic vertebral fracture Vitamin B12 deficiency Vitamin D deficiency Surgical History H/O hand surgery H/O thyroidectomy (~2008) History of arthroscopy of left shoulder (~09/2016) History of arthroscopy of right shoulder (~08/2015) History of esophagogastroduodenoscopy (EGD) Hx of colonoscopy S/P hysterectomy S/P laparoscopic sleeve gastrectomy (~03/16/17) Family History Father Cerebrovascular accident (CVA) Mother Diabetes Hypertension Social History Housing: House Alcohol intake: never Patient Tobacco Use Status: Never used Tobacco e-Cigarette/Vaping Use: Never Used Second Hand Smoke Exposure: Yes service: No Current occupational status: disabled Cognitive needs: No Hearing needs: No Vision needs: Yes Female Reproductive History Menstrual Age of Menarche: 10 Review of Systems Const Denies weight gain and Denies weight loss ENT Reports no additional complaints, Denies dysphagia and Denies odynophagia Card Reports no additional complaints Resp Reports no additional complaints GI Reports abdominal pain (Epigastric), Denies belching, Denies melena, Denies bloating, Denies change in bowel habits, Denies dysphagia, Denies excessive flatus, Denies dyspepsia, Denies heartburn, Denies diarrhea, Reports loose stools (Postprandially), Denies nausea, Denies odynophagia and Denies vomiting Reports no additional complaints Musc Reports no additional complaints Neuro Reports no additional complaints Psych Reports no additional complaints Endo Reports no additional complaints Physical Exam Vital Signs: Last Vital Signs Pulse 63 08/26/22 10:17 BP 131/63 08/26/22 10:17 BMI result Body Mass Index 33.3 Const General: healthy appearing, no acute distress and well developed Nutritional Appearance: obese Orientation/consciousness: patient oriented x3 HEENT Head: Yes normal to inspection, Yes normocephalic and Yes atraumatic Face and sinus: Yes normal facial exam Mouth: Normal oral and palatal mucosa present Throat: Yes posterior oropharynx normal, Yes tonsils normal and Yes uvula midline Eyes General: appearance normal, both eyes and all related structures Neck Neck: Yes normal visual inspection, Yes full ROM and Yes trachea midline Thyroid: Thyroid normal Resp Effort & Inspection: normal respiratory effort, able to speak in complete sen tences, no tracheal deviation and symmetric chest movement Auscultation: clear to auscultation bilaterally Cardio Rate: regular rate Heart sounds: S1 normal heart sound present and S2 normal heart sound present GI Inspection: Yes normal to inspection, No distended and Yes obesity Palpation (GI): Soft to palpation, not firm, nontender and No hepatosplenomegaly present Auscultation: normal bowel sounds General: Yes no CVA tenderness Back/Spine/Pelvis Back: no CVA tenderness Skin General skin exam: elasticity normal, turgor normal and dry skin Neuro General: patient oriented x3 Psych Appearance: grossly normal Mental Status: mental status grossly normal Speech and movement: Normal speech and movement present Affect: normal affect Assessment & Plan Assessment & Plan (1) GERD (gastroesophageal reflux disease): Code(s): K21.9 - Gastro-esophageal reflux disease without esophagitis Qualifiers: Esophagitis presence: esophagitis presence not specified Qualified Code(s): K21.9 - Gastro-esophageal reflux disease without esophagitis Plan: Continue pantoprazole, stop famotidine. Patient continues to have epigastric discomfort. Will start her on sucralfate twice a day. Patient can take it at noon time and at bedtime. Discussed with patient avoiding dietary triggers in late night snacking. Staying upright for minimum 3 hours after meals discussed with patient (2) Postprandial epigastric pain: Code(s): R10.13 - Epigastric pain Plan: Postprandial epigastric discomfort. Will stop famotidine and start sucralfate (3) Postprandial diarrhea: Code(s): K52.9 - Noninfective gastroenteritis and colitis, unspecified Plan: Increase fiber in her diet. Avoid dietary triggers. I will see patient in 1 month, sooner on as needed basis. Patient is agreeable to this plan and verbalizes understanding of instructions. She was given the opportunity to ask questions and all questions answered. Thank you for allowing me to participate in her care Medications: New sucralfate Please take it at noon time and at bedtime 10 mL PO BID 400 mL 3RF K21.9 - Gastro-esophageal reflux disease without esophagitis Discontinued famotidine Discontinued Reason: Doctor's Order 40 mg PO BEDTIME 30 tabs 3RF K21.9 - Gastro-esophageal reflux disease without esophagitis Coding Level of Care Code Est Pt Level 4 (23582) Diagnoses GERD (gastroesophageal reflux disease) K21.9 Esophagitis presence: esophagitis presence not specified Postprandial epigastric pain R10.13 Postprandial diarrhea K52.9 Time Spent (min) 35 Comment 20 minutes spent with patient and additional 15 minutes spent reviewing her records
== END 2022-08-26 10:50 | disposition home or self-care (01) ==
PROVIDERS: PCP Internal Medicine; Visit Provider Nurse Practitioner Family
DX: K21.9 Gastro-esophageal reflux disease without esophagitis (principal); R10.13 Epigastric pain; K52.9 Noninfective gastroenteritis and colitis, unspecified
CPT/HCPCS: 99214

== ENCOUNTER → 2022-08-26 09:51 | Outpatient (BNVA) | payer OTHER, SELFPAY | PROVIDERS: PCP Internal Medicine; Visit Provider Nurse Practitioner Family | DX: K21.9 Gastro-esophageal reflux disease without esophagitis (principal); K52.9 Noninfective gastroenteritis and colitis, unspecified; R10.13 Epigastric pain | CPT/HCPCS: 99212 ==

== ENCOUNTER 2022-09-06 12:31 | Outpatient (AMB) | payer OTHER, SELFPAY ==
[2022-09-06 12:43] VITALS: BP 122/78; PULSE 72; O2SAT 97; BMI 33.2
--- NOTE | 2022-09-06 12:43 | MHC.PC.OV ---
Vital Signs 09/06/22 12:43 Height 5 ft 3 in Weight 187 lb 6 oz BMI 33.2 BP 122/78 Blood Pressure Location Lt brachial Position Sitting Pulse 72 Pulse Source Pulse Oximeter Pulse Oximetry (%) 97 Oxygen Delivery Method Room Air Intake Visit Reasons: breast augmentation, Dr. 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 Accompanied by: Self / Same As Patient Allergies gabapentin Adverse Reaction (Mild, Verified 09/30/22 21:57) drowsiness Medication List - Last Reconciled 09/06/22 by Tez Clifford MD calcium carbonate 500 mg PO BID cholecalciferol (vitamin D3) 1,250 mcg PO QWEEK diclofenac sodium 75 mg PO BID PRN docusate sodium 100 mg PO BEDTIME hydroxyzine HCl 25 mg PO TID PRN levothyroxine 175 mcg PO DAILY mecobalamin (vitamin B12) 1,000 mcg PO DAILY 90 days mupirocin 2% 1 appl topical BID [ORTHOTIC SUPPORT ANKLET for PLANTAR FASCIITIS As directed] pantoprazole 40 mg PO DAILY polyethylene glycol 3350 (Miralax) 17 grams PO DAILY sennosides (Natural Senna Laxative) 17.2 mg (2 x 8.6 mg) PO BEDTIME sucralfate 10 mL PO BID Tobacco use date assessed: 09/06/22 Dental Screening Dental Screen Date: 09/06/22 Did you have a dental visit in the last 12 months?: No Did you have a dental problem in the last 6 months where you did not have access to dental care?: No Was dental information given to patient?: No HPI breast augmentation, Dr. Lavinia Betts HPI Details Patient comes in today at the request of Dr. Lavinia Betts for a preoperative medical examination for clearance for surgery She is scheduled for bilateral breast REDUCTION surgery under general anesthesia on 10/06/2022 at [facility] States that she currently feels okay She denies any headaches or dizziness Denies any chest pains, no SOB No nausea/vomiting, no abdominal pain No change in bowel habits noted Would like to see if she can get a prescription for Trulicity to help her lose some weight States that her daughter is on it (daughter HAS diabetes) and she has been able to lose some weight while on the medication and she has read recently that Trulicity is being used by some people mainly for weight loss [facility] Medical History Abnormal ultrasound of breast Acquired hypothyroidism Anxiety Cervical disc disease Constipation Depression Fibromyalgia GERD (gastroesophageal reflux disease) H/O radioactive iodine thyroid ablation (~2008) Insomnia Low back pain Lumbar spondylosis Obesity (BMI 30-39.9) Overweight (BMI 25.0-29.9) Patellofemoral arthritis Thoracic vertebral fracture Vitamin B12 deficiency Vitamin D deficiency Surgical History H/O hand surgery H/O thyroidectomy (~2008) History of arthroscopy of left shoulder (~09/2016) History of arthroscopy of right shoulder (~08/2015) History of esophagogastroduodenoscopy (EGD) Hx of colonoscopy S/P hysterectomy S/P laparoscopic sleeve gastrectomy (~03/16/17) Family History Father Cerebrovascular accident (CVA) Mother Diabetes Hypertension Social History Housing: House Alcohol intake: never Patient Tobacco Use Status: Never used Tobacco e-Cigarette/Vaping Use: Never Used Second Hand Smoke Exposure: Yes service: No Current occupational status: disabled Cognitive needs: No Hearing needs: No Vision needs: Yes Female Reproductive History Menstrual Age of Menarche: 10 Questionnaire PHQ-9 Over the last 2 weeks, how often have you been bothered by any of the following problems? 1. Little interest or pleasure in doing things: nearly every day 2. Feeling down, depressed, or hopeless: nearly every day 3. Trouble falling or staying asleep, or sleeping too much: nearly every day 4. Feeling tired or having little energy: nearly every day 5. Poor appetite or overeating: nearly every day 6. Feeling bad about yourself - or that you are a failure or have let yourself or your family down: nearly every day 7. Trouble concentrating on things, such as reading the newspaper or watching television: not at all 8. Moving or speaking so slowly that other people could have noticed. Or the opposite - being so fidgety or restless that you have been moving around a lot more than usual: not at all 9. 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 Nicolas Martin, Marcelle Wood, Dom Lepe and colleagues, with an educational gaby from [employer]. Thrive Questionnaire Date Thrive assessed: 09/06/22 I am a: Patient What is your living situation today?: I have a steady place to live Within the past 12 months, did the food you bought not last and you didn't have the money to get more?: Never true Within the past 12 months, did you worry whether your food would run out before you got money to buy more?: Never true Do you have trouble paying for medicines?: No Do you have trouble getting transportation to medical appointments?: No Do you have trouble paying your heating and electricity bill?: No Do you have trouble taking care of your child, family member or friend?: No Do you have trouble with day-to-day activities such as bathing, preparing meals, shopping, managing finances, etc.?: No Are you currently unemployed and looking for a job?: No Are you interested in more education?: No Please select the resources that you would like help with: None Currently or been in a relationship where the following occur: no concerns reported AUDIT C Alcohol Use Questionnaire (AUDIT-C) 1. How often do you have a drink containing alcohol?: Never 3. How often do you have six or more drinks on one occasion?: Never Total Score: 0 Score Reviewed/Action Taken: Yes MAYTE-7 AMB Questionnaire MAYTE-7 Date MAYTE - 7 assessed: 09/06/22 Feeling nervous, anxious, or on edge: 3 = Nearly every day Not being able to stop or control worryin = Nearly every day Worrying too much about different things: 3 = Nearly every day Trouble relaxin = Nearly every day Being so restless that it is hard to sit still: 3 = Nearly every day Becoming easily annoyed or irritable: 3 = Nearly every day Source: Developed by Marcelle Clemons, Dom Lepe and colleagues, with an educational gaby from [employer]. Review of Systems Const Denies fatigue, Denies fever(s) and Denies headache(s) ENT Denies dysphagia, Denies dizziness, Denies headache(s), Denies neck pain, Denies odynophagia and Denies sore throat Card Denies chest pain, Denies palpitations and Denies dyspnea Resp Denies cough and Denies dyspnea GI Denies abdominal pain, Denies constipation, Denies dysphagia, Denies heartburn, Denies diarrhea, Denies nausea, Denies odynophagia and Denies vomiting Denies difficulty voiding, Denies nocturia and Denies dysuria Musc Reports back pain (recurrent upper back pain and chronic lower back pain), Reports myalgias (diffuse - due to fibromyalgia), Reports arthralgias (over knees) and Denies neck pain Neuro Denies dizziness and Denies headache(s) Endo Denies fatigue and Denies palpitations Physical exam (Primary Care) Vital Signs: Last Vital Signs Pulse 72 09/06/22 12:43 BP 122/78 09/06/22 12:43 Pulse Ox 97 09/06/22 12:43 Oxygen Delivery Method Room Air 09/06/22 12:43 BMI result Body Mass Index 33.2 Tobacco/Smoking Status: Tobacco use Status Tobacco use date assessed 09/06/22 09/06/22 12:49 Patient Tobacco Use Status Never used Tobacco 09/06/22 12:49 e-Cigarette/Vaping Use Never Used 09/06/22 12:49 PHQ-9: PHQ-9 Score PHQ-9: Total score 18 09/06/22 14:09 Depression Screening Interpretation: Positive Depression Screening Follow-up: Existing condition, Community Mental Health Worker F/U and Declines treatment Thrive Assessment: Date of Thrive Assessment Date Thrive assessed 09/06/22 09/06/22 12:49 Currently or been in a relationship where the following occur: no concerns reported Const General: no acute distress and alert HENMT Ears: TM's normal bilaterally and EAC's normal Throat: Yes posterior oropharynx normal and Yes tonsils normal (no TP congestion) Neck Neck: Yes no lymphadenopathy and Yes supple Thyroid: Thyroid normal Resp Auscultation: clear to auscultation bilaterally, no rales and no wheezes Cardio Rate: regular rate Rhythm: regular rhythm Heart sounds: no murmurs GI Palpation (GI): Soft to palpation and nontender Auscultation: normal bowel sounds General: Yes no CVA tenderness Back/Spine/Pelvis Back: no CVA tenderness Cervical Spine: cervical muscular tenderness and Cervical spine tenderness Thoracic/Lumbar Spine: paraspinal muscle tenderness bilaterally in the upper thoracic, in the mid thoracic, in the mid lumbar and in the lower lumbar and lumbar spinal tenderness Extrem General: Yes no clubbing, cyanosis or edema Assessment and Plan Assessment & Plan (1) Preoperative examination: Code(s): Z01.818 - Encounter for other preprocedural examination Plan: Patient presents with acceptable risks for planned low cardiac risk procedure She has no significant cardiac or pulmonary history in the past Will send her for some preop labs NOREEN for further evaluation (2) Bilateral pendulous breasts: Code(s): N64.89 - Other specified disorders of breast Plan: She is scheduled for bilateral breast reduction surgery under general anesthesia on 10/06/[address] Lavinia Betts (3) Acquired hypothyroidism: Code(s): E03.9 - Hypothyroidism, unspecified Plan: Continue Levothyroxine 175 mcg QD Patient is currently clinically euthyroid (4) Fibromyalgia: Code(s): M79.7 - Fibromyalgia Plan: Encouraged again on regular exercise and physical activity to help manage her fibromyalgia symptoms better Was on Pregabalin 75 mg BID, Duloxetine 30 mg QD and Amitriptyline 25 mg Q HS in the past but she stopped taking all of these at some point and is now only taking NSAIDs (Diclofenac) PRN for pain and does not wish to keep taking a lot of meds if she can avoid them (5) Constipation: Code(s): K59.00 - Constipation, unspecified Qualifiers: Constipation type: slow transit constipation Qualified Code(s): K59.01 - Slow transit constipation Plan: Encouraged increased oral fluids and dietary fiber Was on Linzess 145 mcg QD in the past but is now only on Docusate 100 mg Q HS, Senna 8.6 mg 2 tabs Q HS and Citrucel 600 mg QD Follow up with GI as scheduled (6) GERD (gastroesophageal reflux disease): Code(s): K21.9 - Gastro-esophageal reflux disease without esophagitis Qualifiers: Esophagitis presence: esophagitis presence not specified Qualified Code(s): K21.9 - Gastro-esophageal reflux disease without esophagitis Plan: Dietary restrictions reinforced Continue Famotidine 40 mg Q HS and Pantoprazole 40 mg QD S/P EGD a few months ago, which revealed (+) findings of chronic inactive gastritis; H. pylori was negative Follow up with GI as scheduled (7) Vitamin D deficiency: Code(s): E55.9 - Vitamin D deficiency, unspecified Plan: Continue Vitamin D2 84706 units once a week (8) Vitamin B12 deficiency: Comment: S/P bariatric surgery Code(s): E53.8 - Deficiency of other specified B group vitamins Plan: Continue Vitamin B12 1000 mcg QD (9) Lumbar spondylosis: Code(s): M47.816 - Spondylosis without myelopathy or radiculopathy, lumbar region Plan: Lumbar spine x-rays last done in 2015 revealed (+) lumbar spondylosis Reinforced activity and weight-lifting restrictions Follow up with [facility] as scheduled (10) Cervical disc disease: Code(s): M50.90 - Cervical disc disorder, unspecified, unspecified cervical region Plan: Has occasional right-sided cervical radicular symptoms; symptoms are otherwise stable and manageable Follow up with [facility] as scheduled (11) Insomnia: Code(s): G47.00 - Insomnia, unspecified Qualifiers: Insomnia type: primary Qualified Code(s): F51.01 - Primary insomnia Plan: Sleep hygiene reinforced Used to take Trazodone 50 mg Q HS - is currently not on any sleep aid (12) Anxiety: Code(s): F41.9 - Anxiety disorder, unspecified Plan: Continue Hydroxyzine 25 mg TID PRN (13) Depression: Code(s): F32.9 - Major depressive disorder, single episode, unspecified Qualifiers: Depression Type: major depressive disorder Major depression recurrence: recurrent Active/Remission status: currently active Major depression episode severity: unspecified Qualified Code(s): F33.9 - Major depressive disorder, recurrent, unspecified Plan: Was on Fluoxetine 10 mg QD and Amitriptyline 25 mg Q HS previously but patient stopped taking all of these Rx and is not on anything else for anxiety and depression at this time - does not wish to take any Rx yet Follow up with psychiatry as scheduled (14) Obesity (BMI 30-39.9): Comment: S/P bariatric surgery Code(s): E66.9 - Obesity, unspecified Plan: Reinforced diet/exercise as tolerated/lose weight Is S/P bariatric surgery a few years ago and was following up with [facility] [place] [facility] [place] requested for a referral to see Dr. Gomez in [place] for a second opinion/further evaluation a few months ago as she was frustrated that her weight is not coming down as fast as she wants it to Plan Will provide final clearance for surgery once her lab results are available for review Follow up in 4 months Orders: Orders Vitamin B12 and Folate 09/06/22 E53.8 - Deficiency of other specified B group vitamins, Z01.818 - Encounter for other preprocedural examination Comprehensive Met. Panel 09/06/22 Z01.818 - Encounter for other preprocedural examination Free T4 (Free Thyroxine) 09/06/22 E03.9 - Hypothyroidism, unspecified, Z01.818 - Encounter for other preprocedural examination Thyroid Stimulating Hormone 09/06/22 E03.9 - Hypothyroidism, unspecified, Z01.818 - Encounter for other preprocedural examination Vitamin D 25-OH Total 09/06/22 E55.9 - Vitamin D deficiency, unspecified, Z01.818 - Encounter for other preprocedural examination Complete Blood Count Auto Diff 09/06/22 Z01.818 - Encounter for other preprocedural examination Medications: New dulaglutide (Trulicity) 1.5 mg (0.5 mL) subcut QWEEK 2 mL 3RF for weight loss Coding Level of Care Code Est Pt Level 4 (88541) Diagnoses Preoperative examination Z8 Bilateral pendulous breasts N64.89 Acquired hypothyroidism E03.9 Fibromyalgia M79.7 Constipation K59.01 Constipation type: slow transit constipation GERD (gastroesophageal reflux disease) K21.9 Esophagitis presence: esophagitis presence not specified Vitamin D deficiency E55.9 Vitamin B12 deficiency E53.8 Lumbar spondylosis M47.816 Cervical disc disease M50.90 Insomnia F51.01 Insomnia type: primary Anxiety F41.9 Depression F33.9 Depression Type: major depressive disorder Major depression recurrence: recurrent Active/Remission status: currently active Major depression episode severity: unspecified Obesity (BMI 30-39.9) E66.9
== END 2022-09-06 13:54 | disposition home or self-care (01) ==
PROVIDERS: PCP Internal Medicine; Visit Provider Internal Medicine
DX: E03.9 Hypothyroidism, unspecified (principal); K21.9 Gastro-esophageal reflux disease without esophagitis; E55.9 Vitamin D deficiency, unspecified; F41.9 Anxiety disorder, unspecified; F33.9 Major depressive disorder, recurrent, unspecified; Z01.818 Encounter for other preprocedural examination; K59.01 Slow transit constipation; N64.89 Other specified disorders of breast; M79.7 Fibromyalgia; E53.8 Deficiency of other specified B group vitamins; M47.816 Spondylosis without myelopathy or radiculopathy, lumbar region; M50.90 Cervical disc disorder, unspecified, unspecified cervical region
CPT/HCPCS: 99214

== ENCOUNTER 2022-09-06 14:07 | Outpatient (REF) | payer OTHER, SELFPAY ==
[2022-09-06 14:25] LABS: MANUAL DIFF FLAG NO
[2022-09-06 14:54] LABS: Basophils Percent Auto 0.5 % (0-2); Eosinophils Absolute Auto 0.1 X10*3/uL (0.0-0.4); Hematocrit 38.3 % (37.0-47.0); Hemoglobin 12.4 g/dl (12.0-16.0); Imm Gran Abs Auto 0.03 X10*3/uL (0.00-0.03); Imm Gran Pct Auto 0.4 % (0.0-0.4); Lymphocytes Absolute Auto 1.5 X10*3/uL (1.2-4.9); Lymphocytes Percent Auto 18.9 % (20-40); Mean Corpuscular HGB Conc 32.4 g/dl (31.0-35.0); Mean Corpuscular Hemoglobin 27.7 pg (27.0-33.0); Mean Corpuscular Volume 85.5 fL (80.0-98.0); Mean Platelet Volume 10.9 fL (9.4-12.3); Monocytes Absolute Auto 0.6 X10*3/uL (0.1-1.2); Neutrophils Absolute Auto 5.8 x10*3/uL (2.0-8.3); Neutrophils Percent Auto 72.2 % (45-73); Platelet Count 232 X10*3/uL (160-400); Red Blood Count 4.48 X10*6/uL (4.20-5.50); Red Cell Distribution Width 12.6 % (11.0-16.0)
[2022-09-06 19:45] LABS: Alanine Aminotransferase 13 U/L (0-31); Albumin Level 3.6 g/dL (3.5-5.0); Alkaline Phosphatase 55 U/L (39-117); Anion Gap 13 (12-20); Aspartate Amino Transferase 15 U/L (5-31); Bilirubin Total 0.8 mg/dL (0.0-1.0); Blood Urea Nitrogen 12 mg/dL (9-16); Calcium 7.9 mg/dL (8.4-10.2); Carbon Dioxide 26 mmol/L (22-29); Chloride 105 mmol/L (96-108); Estimated Glomerular Filt Rate > 60; Glucose Random 82 mg/dL (60-115); Potassium 3.8 mmol/L (3.3-5.1); Sodium 140 mmol/L (135-145); Total Protein 6.6 g/dL (6.5-8.0)
[2022-09-06 19:50] LABS: Vitamin B12 300 pg/mL (200-900)
[2022-09-06 20:42] LABS: Free T4 (Free Thyroxine) 1.19 ng/dL (0.71-1.85); Thyroid Stimulating Hormone 0.08 uIU/mL (0.32-4.0); Vitamin D 25-OH Total 22.9 ng/mL (>30)
== END 2022-09-06 14:08 | disposition home or self-care (01) ==
LOC: HO.LAB 14:07
PROVIDERS: PCP Internal Medicine; Visit Provider Internal Medicine
DX: Z01.818 Encounter for other preprocedural examination (principal); E55.9 Vitamin D deficiency, unspecified; E53.8 Deficiency of other specified B group vitamins; E03.9 Hypothyroidism, unspecified
CPT/HCPCS: 36415; 80053; 82306; 82607; 82746; 84439; 84443; 85025

== ENCOUNTER → 2022-09-26 11:34 | Outpatient (AMB) | payer OTHER, SELFPAY ==
[2022-09-26 12:02] VITALS: BP 104/59; PULSE 61; BMI 32.0
--- NOTE | 2022-09-26 12:02 | A.OFFVIS_ITS ---
Intake Vital Signs 09/26/22 12:02 Height 5 ft 3 in Weight 180 lb 12.465 oz BMI 32.0 BP 104/59 L Blood Pressure Location Lt brachial Position Sitting Pulse 61 Intake Visit Reasons: 1 month fu Intake Note: cristy presents in office as a est.patient for a 1 month for GERD PT CC: pt reports having abdominal pain , constipation pt denies any other GI Issues Director External Communications Required: No Accompanied by: Self / Same As Patient Allergies gabapentin Adverse Reaction (Mild, Verified 09/30/22 21:57) drowsiness HPI 1 month fu HPI Details LAST VISIT: GERD (gastroesophageal reflux disease) Continue pantoprazole, stop famotidine. Patient continues to have epigastric discomfort. Will start her on sucralfate twice a day. Patient can take it at noon time and at bedtime. Discussed with patient avoiding dietary triggers in late night snacking. Staying upright for minimum 3 hours after meals discussed with patient Postprandial epigastric pain Postprandial epigastric discomfort. Will stop famotidine and start sucralfate Postprandial diarrhea Increase fiber in her diet. Avoid dietary triggers. I will see patient in 1 month, sooner on as needed basis. Patient is agreeable to this plan and verbalizes understanding of instructions. She was given the opportunity to ask questions and all questions answered. ? Thank you for allowing me to participate in her care Plan Medications New sucralfate Please take it at noon time and at bedtime 10 mL PO BID 400 mL 3RF K21.9 Discontinued famotidine Discontinued Reason: Doctor's Order 40 mg PO BEDTIME 30 tabs 3RF K21.9 TODAY'S VISIT Patient is here today for follow-up. Patient reports that since the last time I have seen her she has been feeling better, she continues to however her epigastric discomfort. Patient is currently taking sucralfate twice a day and pantoprazole in the morning. Her symptoms of acid reflux are suppressed for the most part. However patient does report to have constipation. She is taking sucralfate. Not taking MiraLax every day. Patient reports that she drinks plenty fluids. Patient states that when she feels like she is unable to move her bowels she feels more bloated. Patient denies any. Denies melena, hematochezia, unintentional weight of like stools. Patient denies dyspepsia, dysphagia or odynophagia PFSH Medical History Abnormal ultrasound of breast Acquired hypothyroidism Anxiety Cervical disc disease Constipation Depression Fibromyalgia GERD (gastroesophageal reflux disease) H/O radioactive iodine thyroid ablation (~2008) Insomnia Low back pain Lumbar spondylosis Obesity (BMI 30-39.9) Overweight (BMI 25.0-29.9) Patellofemoral arthritis Thoracic vertebral fracture Vitamin B12 deficiency Vitamin D deficiency Surgical History H/O hand surgery H/O thyroidectomy (~2008) History of arthroscopy of left shoulder (~09/2016) History of arthroscopy of right shoulder (~08/2015) History of esophagogastroduodenoscopy (EGD) Hx of colonoscopy S/P hysterectomy S/P laparoscopic sleeve gastrectomy (~03/16/17) Family History Father Cerebrovascular accident (CVA) Mother Diabetes Hypertension Social History Housing: House Alcohol intake: never Patient Tobacco Use Status: Never used Tobacco e-Cigarette/Vaping Use: Never Used Second Hand Smoke Exposure: Yes service: No Current occupational status: disabled Cognitive needs: No Hearing needs: No Vision needs: Yes Female Reproductive History Menstrual Age of Menarche: 10 Review of Systems Const Denies weight gain and Denies weight loss ENT Reports no additional complaints, Denies dysphagia and Denies odynophagia Card Reports no additional complaints Resp Reports no additional complaints GI Denies abdominal pain, Denies belching, Denies melena, Reports bloating, Reports constipation, Denies dysphagia, Denies excessive flatus, Denies dyspepsia, Denies heartburn, Denies diarrhea, Denies loose stools, Denies nausea, Denies odynophagia and Denies vomiting Reports no additional complaints Musc Reports no additional complaints Neuro Reports no additional complaints Psych Reports no additional complaints Endo Reports no additional complaints Physical Exam Vital Signs: Last Vital Signs Pulse 61 09/26/22 12:02 BP 104/59 L 09/26/22 12:02 BMI result Body Mass Index 32.0 Const General: healthy appearing, no acute distress and well developed Nutritional Appearance: obese Orientation/consciousness: patient oriented x3 HEENT Head: Yes normal to inspection, Yes normocephalic and Yes atraumatic Face and sinus: Yes normal facial exam Mouth: Normal oral and palatal mucosa present Throat: Yes posterior oropharynx normal, Yes tonsils normal and Yes uvula midline Eyes General: appearance normal, both eyes and all related structures Neck Neck: Yes normal visual inspection, Yes full ROM and Yes trachea midline Thyroid: Thyroid normal Resp Effort & Inspection: normal respiratory effort, able to speak in complete sentences, no tracheal deviation and symmetric chest movement Auscultation: clear to auscultation bilaterally Cardio Rate: regular rate Heart sounds: S1 normal heart sound present and S2 normal heart sound present GI Inspection: Yes normal to inspection and No distended Palpation (GI): Soft to palpation, not firm, nontender and No hepatosplenomegaly present Auscultation: normal bowel sounds General: Yes no CVA tenderness Back/Spine/Pelvis Back: no CVA tenderness Skin General skin exam: elasticity normal, turgor normal and dry skin Neuro General: patient oriented x3 Psych Appearance: grossly normal Mental Status: mental status grossly normal Speech and movement: Normal speech and movement present Assessment & Plan Assessment & Plan (1) Constipation: Code(s): K59.00 - Constipation, unspecified Qualifiers: Constipation type: slow transit constipation Qualified Code(s): K59.01 - Slow transit constipation Plan: Continue Maalox and Senokot. Patient was encouraged to increase fluid intake and activity to increase better bowel motility (2) GERD (gastroesophageal reflux disease): Code(s): K21.9 - Gastro-esophageal reflux disease without esophagitis Qualifiers: Esophagitis presence: esophagitis presence not specified Qualified Code(s): K21.9 - Gastro-esophageal reflux disease without esophagitis Plan: Continue current treatment with pantoprazole and sucralfate. Patient was encouraged to drink plenty fluids increase activity. Sucralfate might be causing his patient constipated. Patient was encouraged to avoid dietary triggers in late night snacking. Staying upright for minimum 3 hours after meals discussed with patient. (3) Postprandial abdominal bloating: Code(s): R14.0 - Abdominal distension (gaseous) Plan: Patient reports postprandial abdominal bloating. She was encouraged to avoid dietary triggers. Low FODMAP diet and courage. List of food recommended as was list of food to avoid given to patient. Will give patient script for simethicone. I will see her in 6 months, sooner on as needed basis. Patient is agreeable to this plan and verbalizes understanding of instructions. She was given the opportunity to ask questions all questions answered. Thank you for allowing me to participate in her care Medications: New simethicone (Gas Relief (simethicone)) 125 mg PO TID-QID PRN 120 caps 2RF abdominal distention R14.0 - Abdominal distension (gaseous) Refilled pantoprazole take one tablet half an hour before breakfast 40 mg PO DAILY 90 tabs 2RF K21.9 - Gastro-esophageal reflux disease without esophagitis sennosides (Natural Senna Laxative) 17.2 mg (2 x 8.6 mg) PO BEDTIME 180 tabs 3RF constipation K59.00 - Constipation, unspecified Coding Level of Care Code Est Pt Level 3 (81511) Diagnoses Constipation K59.01 Constipation type: slow transit constipation GERD (gastroesophageal reflux disease) K21.9 Esophagitis presence: esophagitis presence not specified Postprandial abdominal bloating R14.0 Time Spent (min) 30 Comment 20 minutes spent with patient and additional 10 minutes spent reviewing her records
== END ==
PROVIDERS: PCP Internal Medicine; Visit Provider Nurse Practitioner Family
DX: K59.01 Slow transit constipation (principal); K21.9 Gastro-esophageal reflux disease without esophagitis; R14.0 Abdominal distension (gaseous)
CPT/HCPCS: 99213

== ENCOUNTER → 2022-09-26 11:34 | Outpatient (BNVA) | payer OTHER, SELFPAY | PROVIDERS: PCP Internal Medicine; Visit Provider Nurse Practitioner Family | DX: K21.9 Gastro-esophageal reflux disease without esophagitis (principal); K59.01 Slow transit constipation; R14.0 Abdominal distension (gaseous); Z90.3 Acquired absence of stomach [part of] | CPT/HCPCS: 99212 ==

== ENCOUNTER 2022-09-28 09:45 | Outpatient (REF) | payer OTHER, SELFPAY | END 2022-09-28 09:46 | disposition home or self-care (01) | LOC: HO.MAMMO 09:45 | PROVIDERS: PCP Internal Medicine; Visit Provider Internal Medicine | DX: Z12.31 Encounter for screening mammogram for malignant neoplasm of breast (principal) | CPT/HCPCS: 77063; 77067 ==

== ENCOUNTER → 2022-09-28 10:15 | Outpatient (BNV) | payer OTHER, SELFPAY | PROVIDERS: PCP Internal Medicine; Visit Provider Radiology Diagnostic Radiology | DX: Z12.31 Encounter for screening mammogram for malignant neoplasm of breast (principal) | CPT/HCPCS: 77063; 77067 ==

== ENCOUNTER 2022-11-22 08:58 | Outpatient (AMB) | payer OTHER, SELFPAY ==
[2022-11-22 09:02] VITALS: BP 116/78; PULSE 71; O2SAT 98; BMI 30.3
--- NOTE | 2022-11-22 09:02 | MHC.PC.OV ---
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 Accompanied by: Self / Same As Patient Allergies gabapentin Adverse Reaction (Mild, Verified 11/22/22 09:18) drowsiness Medication List - Last Reconciled 11/22/22 by Tez Clifford MD calcium carbonate 500 mg PO BID cholecalciferol (vitamin D3) 1,250 mcg PO QWEEK diclofenac sodium 75 mg PO BID PRN docusate sodium 100 mg PO BEDTIME dulaglutide (Trulicity) 1.5 mg (0.5 mL) subcut QWEEK hydroxyzine HCl 25 mg PO TID PRN levothyroxine 175 mcg PO DAILY mecobalamin (vitamin B12) 1,000 mcg PO DAILY 90 days mupirocin 2% 1 appl topical BID [ORTHOTIC SUPPORT ANKLET for PLANTAR FASCIITIS As directed] pantoprazole 40 mg PO DAILY polyethylene glycol 3350 (Miralax) 17 grams PO DAILY sennosides (Natural Senna Laxative) 17.2 mg (2 x 8.6 mg) PO BEDTIME simethicone (Gas Relief (simethicone)) 125 mg PO TID-QID PRN sucralfate 10 mL PO BID Tobacco use date assessed: 11/22/22 Dental Screening Dental Screen Date: 11/22/22 Did you have a dental visit in the last 12 months?: No Did you have a dental problem in the last 6 months where you did not have access to dental care?: No Was dental information given to patient?: No HPI PE HPI Details Patient comes in today for her annual physical examination States that she has been experiencing increasing urinary frequency, urgency and dysuria for the past couple of days - thinks that she may have a UTI States that she feels okay otherwise and has been doing well (has lost some weight) on Trulicity She denies any headaches or dizziness Denies any chest pains, no SOB No nausea/vomiting, no abdominal pain; is still having some issues with reflux lately - takes Pantoprazole 40 mg QD No change in bowel habits noted Had some labs done back in August 2022, with no other labs done recently Had her annual mammogram last done a couple of months ago on 09/28/22 Screening colonoscopy was last done with Dr. 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 Lavinia Betts is reportedly no longer accepting her health insurance [facility] Medical History Cervical disc disease Lumbar spondylosis Anxiety Vitamin D deficiency Vitamin B12 deficiency Obesity (BMI 30-39.9) Constipation Abnormal ultrasound of breast H/O radioactive iodine thyroid ablation (~2008) Overweight (BMI 25.0-29.9) Depression Insomnia Thoracic vertebral fracture Patellofemoral arthritis GERD (gastroesophageal reflux disease) Acquired hypothyroidism Fibromyalgia Low back pain Surgical History History of esophagogastroduodenoscopy (EGD) Hx of colonoscopy H/O hand surgery S/P hysterectomy S/P laparoscopic sleeve gastrectomy (~03/16/17) History of arthroscopy of left shoulder (~09/2016) History of arthroscopy of right shoulder (~08/2015) H/O thyroidectomy (~2008) Family History Father Cerebrovascular accident (CVA) Mother Diabetes Hypertension Social History Housing: House Alcohol intake: never Patient Tobacco Use Status: Never used Tobacco e-Cigarette/Vaping Use: Never Used Second Hand Smoke Exposure: Yes service: No Current occupational status: disabled Cognitive needs: No Hearing needs: No Vision needs: Yes Female Reproductive History Menstrual Age of Menarche: 10 Questionnaire PHQ-9 Over the last 2 weeks, how often have you been bothered by any of the following problems? 1. Little interest or pleasure in doing things: nearly every day 2. Feeling down, depressed, or hopeless: nearly every day 3. Trouble falling or staying asleep, or sleeping too much: nearly every day 4. Feeling tired or having little energy: nearly every day 5. Poor appetite or overeating: nearly every day 6. Feeling bad about yourself - or that you are a failure or have let yourself or your family down: nearly every day 7. Trouble concentrating on things, such as reading the newspaper or watching television: not at all 8. Moving or speaking so slowly that other people could have noticed. Or the opposite - being so fidgety or restless that you have been moving around a lot more than usual: not at all 9. Thoughts that you would be better off or of hurting yourself in some way: not at all Total score: 18 Depression Screening Interpretation: Positive Depression Screening Follow-up: Existing condition, Community Mental Health Worker F/U and Declines treatment Depression Screening Done: Yes 49652 - PHQ-9 Billing: Yes Source: Developed by Drs. Nicolas Martin, Marcelle Wood, Dom Lepe and colleagues, with an educational gaby from [employer]. Thrive Questionnaire Date Thrive assessed: 11/22/22 I am a: Patient What is your living situation today?: I have a steady place to live Within the past 12 months, did the food you bought not last and you didn't have the money to get more?: Never true Within the past 12 months, did you worry whether your food would run out before you got money to buy more?: Never true Do you have trouble paying for medicines?: No Do you have trouble getting transportation to medical appointments?: No Do you have trouble paying your heating and electricity bill?: No Do you have trouble taking care of your child, family member or friend?: No Do you have trouble with day-to-day activities such as bathing, preparing meals, shopping, managing finances, etc.?: No Are you currently unemployed and looking for a job?: No Are you interested in more education?: No Please select the resources that you would like help with: None Currently or been in a relationship where the following occur: no concerns reported AUDIT C Alcohol Use Questionnaire (AUDIT-C) 1. How often do you have a drink containing alcohol?: Never 3. How often do you have six or more drinks on one occasion?: Never Total Score: 0 Score Reviewed/Action Taken: Yes MAYTE-7 AMB Questionnaire MAYTE-7 Date MAYTE - 7 assessed: 11/22/22 Feeling nervous, anxious, or on edge: 3 = Nearly every day Not being able to stop or control worryin = Nearly every day Worrying too much about different things: 3 = Nearly every day Trouble relaxin = Nearly every day Being so restless that it is hard to sit still: 3 = Nearly every day Becoming easily annoyed or irritable: 3 = Nearly every day Source: Developed by Drs. Nicolas Martin, Marcelle Wood, Dom Lepe and colleagues, with an educational gaby from [employer]. Review of Systems Const Denies chills, Denies fatigue, Denies fever(s), Denies headache(s) and Denies malaise Eyes Denies blurry vision, Denies change in vision, Denies irritation and Denies itchy eyes ENT Denies dysphagia, Denies dizziness, Denies otalgia, Denies headache(s), Denies nasal congestion, Denies neck pain, Denies odynophagia, Denies sinus pain and Denies sore throat Card Denies chest pain, Denies rapid heart rate, Denies irregular heart rhythm, Denies palpitations and Denies dyspnea Resp Denies chest congestion, Denies cough, Denies dyspnea and Denies wheezing GI Denies abdominal pain, Denies bloating, Denies constipation, Denies dysphagia, Reports heartburn (occasional), Denies diarrhea, Denies nausea, Denies odynophagia and Denies vomiting Denies hematuria, Denies urinary frequency, Reports nocturia, Reports dysuria (mild), Denies urinary incontinence and Reports urinary urgency Musc Denies back pain, Denies arthralgias, Denies joint swelling, Denies muscle weakness and Denies neck pain Skin/Breast Denies breast pain, Denies breast mass, Denies change in pigmentation, Denies lesions, Denies rash and Denies unusual bruising Neuro Denies dizziness, Denies headache(s) and Denies paresthesias Psych Denies anxiety and Denies depression Endo Denies fatigue and Denies palpitations Robin/Lymph Denies easy bruising Aller/Immun Denies itchy eyes and Denies wheezing Physical exam (Primary Care) Vital Signs: Last Vital Signs Pulse 71 11/22/22 09:02 BP 116/78 11/22/22 09:02 Pulse Ox 98 11/22/22 09:02 Oxygen Delivery Method Room Air 11/22/22 09:02 BMI result Body Mass Index 30.3 Tobacco/Smoking Status: Tobacco use Status Tobacco use date assessed 11/22/22 11/22/22 09:08 Patient Tobacco Use Status Never used Tobacco 11/22/22 09:08 e-Cigarette/Vaping Use Never Used 11/22/22 09:08 PHQ-9: PHQ-9 Score PHQ-9: Total score 18 11/22/22 09:08 Depression Screening Interpretation: Positive Depression Screening Follow-up: Existing condition, Community Mental Health Worker F/U and Declines treatment Thrive Assessment: Date of Thrive Assessment Date Thrive assessed 11/22/22 11/22/22 09:08 Currently or been in a relationship where the following occur: no concerns reported Const General: no acute distress, alert and awake Orientation/consciousness: patient oriented x3 HENMT Head: Yes normocephalic and Yes atraumatic Ears: external ears normal, TM's normal bilaterally and EAC's normal General nose exam: No nasal discharge present Face and sinus: Yes normal facial exam and Yes sinuses nontender Teeth and gingiva: dentition normal Throat: Yes posterior oropharynx normal and Yes tonsils normal (no TP congestion) Eyes Eyelids: Yes eyelids normal Conjunctivae: conjunctivae normal Pupils: Equal, round and reactive pupils present EOM: EOMs intact bilaterally Neck Neck: Yes no lymphadenopathy and Yes supple Thyroid: Thyroid normal Resp Auscultation: clear to auscultation bilaterally, no rales and no wheezes Cardio Rate: regular rate Rhythm: regular rhythm Heart sounds: no murmurs GI Palpation (GI): Soft to palpation, nontender and No hepatosplenomegaly present Auscultation: normal bowel sounds General: Yes no CVA tenderness Back/Spine/Pelvis Back: no CVA tenderness Thoracic/Lumbar Spine: thoracic and lumbar spine normal to inspection Skin Lesions: no lesions Rashes: no rashes Neuro General: patient oriented x3, moves all extremities, no focal motor deficits and CN's II-XI intact bilaterally Cranial nerves: Yes Equal, round and reactive pupils present Cognition (Neuro): normal cognition Gait exam (Neuro): Normal gait present Extrem General: Yes no clubbing, cyanosis or edema Results Reviewed Results Reviewed: Laboratory Tests 09/06/22 14:23 WBC 8.0 Hgb 12.4 Hct 38.3 Plt Count 232 Sodium 140 Potassium 3.8 Creatinine 0.72 Estimated GFR > 60 Random Glucose 82 Calcium 7.9 L AST 15 ALT 13 Vitamin B12 300 25-OH Vitamin D Total 22.9 TSH 0.08 L Free T4 1.19 Assessment and Plan Assessment & Plan (1) Annual physical exam: Code(s): Z00.00 - Encounter for general adult medical examination without abnormal findings Plan: Results of her labs done back in August 2022 reviewed and discussed with patient She is currently up-to-date with all of her cancer screenings (2) Acquired hypothyroidism: Code(s): E03.9 - Hypothyroidism, unspecified Plan: Continue Levothyroxine 175 mcg QD Patient is currently clinically euthyroid (3) Fibromyalgia: Code(s): M79.7 - Fibromyalgia Plan: Patient is encouraged again on regular exercise and physical activity to help manage her fibromyalgia symptoms better Was on Pregabalin 75 mg BID, Duloxetine 30 mg QD and Amitriptyline 25 mg Q HS in the past but she stopped taking all of these at some point and is now only taking NSAIDs (Diclofenac) PRN for pain - does not wish to keep taking a lot of meds if she can avoid them (4) Constipation: Code(s): K59.00 - Constipation, unspecified Qualifiers: Constipation type: slow transit constipation Qualified Code(s): K59.01 - Slow transit constipation Plan: Encouraged increased oral fluids and dietary fiber Was on Linzess 145 mcg QD in the past but is now only taking Docusate 100 mg Q HS, Senna 8.6 mg 2 tabs Q HS and Citrucel 600 mg QD Colonoscopy done back in 05/2022 came out normal Follow up with GI as scheduled (5) GERD (gastroesophageal reflux disease): Code(s): K21.9 - Gastro-esophageal reflux disease without esophagitis Qualifiers: Esophagitis presence: esophagitis presence not specified Qualified Code(s): K21.9 - Gastro-esophageal reflux disease without esophagitis Plan: Dietary restrictions reinforced Continue Famotidine 40 mg Q HS and Pantoprazole 40 mg QD S/P EGD a few months ago in 05/2022, which revealed (+) findings of chronic inactive gastritis; H. pylori was negative Follow up with GI as scheduled (6) Vitamin D deficiency: Code(s): E55.9 - Vitamin D deficiency, unspecified Plan: Continue Vitamin D2 12463 units once a week Advised that her Vitamin D level was still low on her labs done back in August 2022 (7) Vitamin B12 deficiency: Comment: S/P bariatric surgery Code(s): E53.8 - Deficiency of other specified B group vitamins Plan: Continue Vitamin B12 1000 mcg QD (8) Lumbar spondylosis: Code(s): M47.816 - Spondylosis without myelopathy or radiculopathy, lumbar region Plan: Lumbar spine x-rays last done in 2015 revealed (+) lumbar spondylosis Reinforced activity and weight-lifting restrictions Follow up with [facility] as scheduled (9) Cervical disc disease: Code(s): M50.90 - Cervical disc disorder, unspecified, unspecified cervical region Plan: Has occasional right-sided cervical radicular symptoms; symptoms are otherwise stable and manageable Follow up with [facility] as scheduled (10) Abdominal pannus: Code(s): E65 - Localized adiposity Plan: Per request, will refer her to another plastic surgery practice as her previous plastic surgeon (Dr. Lavinia Betts) is reportedly no longer accepting her health insurance (11) Urinary tract infection: Code(s): N39.0 - Urinary tract infection, site not specified Qualifiers: Urinary tract infection type: acute cystitis Hematuria presence: without hematuria Qualified Code(s): N30.00 - Acute cystitis without hematuria Plan: In-office urinalysis done today revealed (+) findings consistent with a urinary tract infection Patient is encouraged to increase her oral fluid intake Will start her on oral Macrobid 500 mg BID x 7 days Will also send out her urine sample to the lab for culture and sensitivity studies for further evaluation in case her symptoms do not respond to the Abx Tx started (12) Insomnia: Code(s): G47.00 - Insomnia, unspecified Qualifiers: Insomnia type: primary Qualified Code(s): F51.01 - Primary insomnia Plan: Sleep hygiene reinforced Used to take Trazodone 50 mg Q HS - is currently not on any sleep aid (13) Anxiety: Code(s): F41.9 - Anxiety disorder, unspecified Plan: Continue Hydroxyzine 25 mg TID PRN (14) Depression: Code(s): F32.9 - Major depressive disorder, single episode, unspecified Qualifiers: Depression Type: major depressive disorder Major depression recurrence: recurrent Active/Remission status: currently active Major depression episode severity: unspecified Qualified Code(s): F33.9 - Major depressive disorder, recurrent, unspecified Plan: Was on Fluoxetine 10 mg QD and Amitriptyline 25 mg Q HS previously but patient stopped taking all of these Rx and is not on anything else for anxiety and depression at this time - does not wish to take any Rx yet Follow up with psychiatry as scheduled (15) Obesity (BMI 30-39.9): Comment: S/P bariatric surgery Code(s): E66.9 - Obesity, unspecified Plan: Reinforced diet/exercise as tolerated/lose weight Is S/P bariatric surgery a few years ago and was following up with Weight Management here at [facility] but requested for a referral to see Dr. Gomez in [place] for a second opinion/further evaluation a few months ago as she was frustrated that her weight is not coming down as fast as she wants it to We have not yet received any correspondence from Dr. Gomez's office so far Plan Follow up in 4 months Orders: Orders Urine Culture Today N39.0 - Urinary tract infection, site not specified Referrals Plastic Surgery Referral E65 - Localized adiposity, Z98.84 - Bariatric surgery status Medications: New nitrofurantoin monohyd/m-cryst 100 mg (Macrobid) must administer with a meal/food 100 mg PO Q12H 14 caps 0RF 7 days Coding Level of Care Code Est Pt Prev Care 40-64y(87463) Diagnoses Annual physical exam Z00.00 Acquired hypothyroidism E03.9 Fibromyalgia M79.7 Slow transit constipation K59.01 Constipation type: slow transit constipation Gastroesophageal reflux disease, unspecified whether esophagitis present K21.9 Esophagitis presence: esophagitis presence not specified Vitamin D deficiency E55.9 Vitamin B12 deficiency E53.8 Lumbar spondylosis M47.816 Cervical disc disease M50.90 Abdominal pannus E65 Acute cystitis without hematuria N30.00 Urinary tract infection type: acute cystitis Hematuria presence: without hematuria Primary insomnia F51.01 Insomnia type: primary Anxiety F41.9 Episode of recurrent major depressive disorder, unspecified depression episode severity F33.9 Depression Type: major depressive disorder Major depression recurrence: recurrent Active/Remission status: currently active Major depression episode severity: unspecified Obesity (BMI 30-39.9) E66.9
== END 2022-11-22 09:52 | disposition home or self-care (01) ==
PROVIDERS: PCP Internal Medicine; Visit Provider Internal Medicine
DX: R30.0 Dysuria (principal)
CPT/HCPCS: 81003; 99396

== ENCOUNTER 2022-11-22 12:28 | Outpatient (REF) | payer OTHER, SELFPAY | END 2022-11-22 12:29 | disposition home or self-care (01) | LOC: HO.LNP 12:28 | PROVIDERS: Visit Provider Internal Medicine | DX: N39.0 Urinary tract infection, site not specified (principal) | CPT/HCPCS: 87086 ==

== ENCOUNTER 2023-03-03 09:19 | Outpatient (AMB) | payer OTHER, SELFPAY ==
[2023-03-03 09:33] VITALS: BP 138/72; PULSE 71; TEMP 36.6; O2SAT 98; BMI 29.3
--- NOTE | 2023-03-03 09:33 | MHC.OFFWIV ---
Intake Vital Signs 03/03/23 09:33 Height 5 ft 3 in Weight 165 lb 8 oz BMI 29.3 BP 138/72 Blood Pressure Location Rt brachial Position Sitting Pulse 71 Pulse Source Pulse Oximeter Temp 98 F Temp Source Oral Pulse Oximetry (%) 98 Oxygen Delivery Method Room Air Intake Visit Reasons: EP, headache, chest pain, palpitations (lobby) Intake Note: Pt states she is here for chest pain, head ache also night sweats. Pt states symptoms started Monday. Pt was watchin tv then noticed her heart started pounding really fast. Patient Tobacco Use Status: Never used Tobacco Allergies gabapentin Adverse Reaction (Mild, Verified 11/22/22 09:18) drowsiness HPI HPI Comments History of Present Illness Details This is a 47-year-old female who presents to the office today for sick visit. Patient complaining of palpitations, chest pain, shortness for breath, diaphoresis/clamminess, lightheadedness/dizziness, and nausea for the past 4 days. Patient states there are no significant triggers to her symptoms; however, they started while she was resting watching TV. The patient denies any fever/chills or recent illnesses. She states the chest pain is substernal and does not radiate to either arm, jaw, neck, or back. COUNTS INCLUDE 234 BEDS AT THE [facility] Medical History Cervical disc disease Lumbar spondylosis Anxiety Vitamin D deficiency Vitamin B12 deficiency Obesity (BMI 30-39.9) Constipation Abnormal ultrasound of breast H/O radioactive iodine thyroid ablation (~2008) Overweight (BMI 25.0-29.9) Depression Insomnia Thoracic vertebral fracture Patellofemoral arthritis GERD (gastroesophageal reflux disease) Acquired hypothyroidism Fibromyalgia Low back pain Surgical History History of esophagogastroduodenoscopy (EGD) Hx of colonoscopy H/O hand surgery S/P hysterectomy S/P laparoscopic sleeve gastrectomy (~03/16/17) History of arthroscopy of left shoulder (~09/2016) History of arthroscopy of right shoulder (~08/2015) H/O thyroidectomy (~2008) Family History Father Cerebrovascular accident (CVA) Mother Diabetes Hypertension Social History Housing: House Alcohol intake: never Patient Tobacco Use Status: Never used Tobacco e-Cigarette/Vaping Use: Never Used Second Hand Smoke Exposure: Yes service: No Current occupational status: disabled Cognitive needs: No Hearing needs: No Vision needs: Yes Female Reproductive History Menstrual Age of Menarche: 10 Review of Systems Const All systems reviewed & are unremarkable except as noted in HPI and below Reports no additional complaints Eyes Reports no additional complaints ENT Reports no additional complaints Card Reports no additional complaints Resp Reports no additional complaints GI Reports no additional complaints Reports no additional complaints Musc Reports no additional complaints Skin/Breast Reports system reviewed and no additional complaints, except as documented Neuro Reports no additional complaints Psych Reports no additional complaints Endo Reports no additional complaints Robin/Lymph Reports no additional complaints Aller/Immun Reports no additional complaints Physical Exam Vital Signs: Last Vital Signs Temp 98 F 03/03/23 09:33 Pulse 71 03/03/23 09:33 BP 138/72 03/03/23 09:33 Pulse Ox 98 03/03/23 09:33 Oxygen Delivery Method Room Air 03/03/23 09:33 BMI result Body Mass Index 29.3 Const Other: Vital signs reviewed. Constitutional: Non-toxic appearing. No acute distress. Well-developed and well-nourished. HEENT: Normocephalic and atraumatic. Skin: Warm and dry. No rashes or lesions noted. Neck: Full and painless range of motion. No cervical lymphadenopathy. Cardio: Regular rate and rhythm. No murmurs, gallops, or rubs. No lower extremity edema. No JVD. Pulmonary: No respiratory distress. No accessory muscle usage. Clear to auscultation bilaterally without wheezing, crackles, or rhonchi. Gastrointestinal: Soft, nontender, and nondistended in all 4 quadrants. Musculoskeletal: Normal range of motion in joints throughout the body. No deformity or other signs of injury. Neuro: Alert and oriented x4. Cranial nerves 2-12 grossly intact. No focal deficits appreciated. Psych: Normal mood and affect. Assessment & Plan Assessment & Plan (1) Heart palpitations: Code(s): R00.2 - Palpitations Plan: This is a 47-year-old female who presented to the walk-in clinic complaining of intermittent palpitations, chest pain, shortness for breath, diaphoresis/clamminess, and lightheadedness/dizziness for the past 4 days. An EKG was obtained which showed normal sinus rhythm at 65 beats per minute with minor Q-waves in anterior leads indicating possible anterior infarct of undetermined age. I have no prior EKGs for comparison. Of note, the patient has a history of hypothyroidism on levothyroxine 175 mcg daily and she had a TSH of 0.08 in 08/2022. Given patient's symptoms and abnormal EKG, I have recommended that the patient proceed to the emergency room for further evaluation and monitoring. Patient states she would like to go to [facility]. I spoke with the charge nurse at [facility] regarding patient's presentation/symptoms and EKG findings. I offered the patient an ambulance; however, she declined and would prefer to drive herself and I believe that the patient has medical capacity to make her own medical decisions and she is aware of the risks of driving herself. Orders: Orders AMB EKG-In Office Today R00.2 - Palpitations Coding Level of Care Code Est Pt Level 3 (85940) Diagnoses Heart palpitations R00.2
== END 2023-03-03 10:38 | disposition home or self-care (01) ==
PROVIDERS: PCP Internal Medicine; Visit Provider Physician Assistant Medical
DX: R00.2 Palpitations (principal)
CPT/HCPCS: 93000; 99213

== ENCOUNTER 2023-03-03 10:30 | Emergency (ER) | payer OTHER, SELFPAY ==
--- NOTE | ~2023-03-03 | XR_ITS ---
EXAMINATION: XR CHEST CLINICAL INFORMATION: Chest pain. COMPARISON: 03/17/2017 TECHNIQUE: Frontal view of the chest was obtained. FINDINGS: The lungs are well expanded. No focal consolidation. No pleural effusion. Cardiac silhouette is within normal limits. Multiple surgical clips project over the upper abdomen. XR/XR chest 1V IMPRESSION: No acute abnormality.
[2023-03-03 10:39] VITALS: BMI 29.2
--- NOTE | 2023-03-03 10:41 | ECG_ITS ---
Test Reason : CHEST PAIN Blood Pressure : / mmHG Vent. Rate : 066 BPM Atrial Rate : 066 BPM P-R Int : 174 ms QRS Dur : 080 ms QT Int : 410 ms P-R-T Axes : 042 019 054 degrees QTc Int : 429 ms Normal sinus rhythm Cannot rule out Anterior infarct , age undetermined Abnormal ECG When compared with ECG of 20-MAR-2017 23:10, Nonspecific T wave abnormality now evident in Anterolateral leads Referred By: Myranda Garcia Electronically Signed By:JACK CLOUD
[2023-03-03 11:07] VITALS: PULSE 62; RESP 18; TEMP 36; O2SAT 99; BMI 29.2
[2023-03-03 11:19] VITALS: BP 130/70
[2023-03-03 11:26] LABS: MANUAL DIFF FLAG NO
[2023-03-03 11:27] LABS: Basophils Percent Auto 0.7 % (0-2); Eosinophils Percent Auto 0.7 % (0-4); Hematocrit 39.4 % (37.0-47.0); Hemoglobin 13.1 g/dl (12.0-16.0); Imm Gran Abs Auto 0.01 X10*3/uL (0.00-0.03); Imm Gran Pct Auto 0.2 % (0.0-0.4); Lymphocytes Absolute Auto 1.7 X10*3/uL (1.2-4.9); Lymphocytes Percent Auto 29.9 % (20-40); Mean Corpuscular HGB Conc 33.2 g/dl (31.0-35.0); Mean Corpuscular Hemoglobin 27.9 pg (27.0-33.0); Mean Corpuscular Volume 83.8 fL (80.0-98.0); Mean Platelet Volume 10.4 fL (9.4-12.3); Monocytes Absolute Auto 0.3 X10*3/uL (0.1-1.2); Monocytes Percent Auto 4.3 % (2-11); Neutrophils Absolute Auto 3.7 x10*3/uL (2.0-8.3); Neutrophils Percent Auto 64.2 % (45-73); Platelet Count 235 X10*3/uL (160-400); Red Cell Distribution Width 12.2 % (11.0-16.0); White Blood Count 5.8 X10*3/uL (4.8-10.8)
[2023-03-03 11:41] LABS: Alanine Aminotransferase 15 U/L (0-31); Alkaline Phosphatase 63 U/L (39-117); Anion Gap 12 (12-20); Aspartate Amino Transferase 14 U/L (5-31); Bilirubin Direct 0.3 mg/dL (0.0-0.5); Bilirubin Total 0.9 mg/dL (0.0-1.0); Blood Urea Nitrogen 18 mg/dL (9-16); Calcium 9.8 mg/dL (8.4-10.2); Carbon Dioxide 31 mmol/L (22-29); Chloride 103 mmol/L (96-108); Creatinine Clr Calc Pharmacy 95.9; Estimated Glomerular Filt Rate > 60; Glucose Random 89 mg/dL (60-115); Sodium 142 mmol/L (135-145); Total Protein 7.1 g/dL (6.5-8.0)
[2023-03-03 11:58] LABS: Troponin-I High Sensitivity < 2.7 ng/L (<3.5-17.0)
[2023-03-03 18:06] VITALS: BP 140/88; PULSE 124; RESP 20; TEMP 35.9; O2SAT 97
[2023-03-03] MEDS: Acetaminophen 325 MG TABLET 650 MG PO (18:11)
[2023-03-03] MEDS: Ondansetron ODT 4 MG TAB.RAPDIS TRANSLINGU (18:11)
[2023-03-03 18:36] VITALS: BP 119/51; PULSE 106; RESP 18; O2SAT 96
--- NOTE | 2023-03-03 18:41 | ED_ITS ---
HPI - Arrhythmia/Palpitations General Chief Complaint: Arrhythmia/Palpitations Stated Complaint: Chest pain, headache Time Seen by Provider: 03/03/23 18:12 History of Present Illness HPI narrative: Patient is a 47-year-old female feels that she has palpitation then felt lightheaded. Then had a syncopal episode on Monday. Now has been having palpitation. Patient denies any fever chills. No chest pain or diaphoresis. No leg swelling. No history of blood clots. Patient is from home. No sudden deaths in the family. Denies any recreational drug use. No fever no chills no coughing or congestion no upper respiratory symptoms. Positive mild headache Related Data Home Medications Medication Instructions Recorded Confirmed calcium carbonate 500 mg calcium 500 mg PO BID 11/27/19 11/22/22 (1,250 mg) chewable tablet levothyroxine 175 mcg tablet 175 mcg PO DAILY 11/27/19 11/22/22 Previous Rx's Medication Instructions Recorded hydroxyzine HCl 25 mg tablet 25 mg PO TID PRN itching #21 tabs 02/16/21 ORTHOTIC SUPPORT ANKLET for #2 ea 06/10/21 PLANTAR FASCIITIS cholecalciferol (vitamin D3) 1,250 1,250 mcg PO QWEEK #13 caps 11/15/21 mcg (50,000 unit) capsule docusate sodium 100 mg capsule 100 mg PO BEDTIME #90 caps 04/05/22 polyethylene glycol 3350 17 17 g PO DAILY #510 grams 06/03/22 gram/dose oral powder (Miralax) mecobalamin (vitamin B12) 1,000 1,000 mcg PO DAILY 90 days #90 tabs 07/18/22 mcg chewable tablet sucralfate 100 mg/mL oral 10 ml PO BID #400 mL 08/26/22 suspension pantoprazole 40 mg tablet,delayed 40 mg PO DAILY #90 tabs 09/26/22 release sennosides 8.6 mg tablet (Natural 17.2 mg (2 x 8.6 mg) PO BEDTIME 09/26/22 Senna Laxative) constipation #180 tabs simethicone 125 mg capsule (Gas 125 mg PO TID-QID PRN abdominal 09/26/22 Relief (simethicone)) distention #120 caps diclofenac sodium 75 mg 75 mg PO BID PRN for pain #60 tabs 01/01/23 tablet,delayed release dulaglutide 1.5 mg/0.5 mL 1.5 mg (0.5 mL) subcut QWEEK for 02/14/23 subcutaneous pen injector weight loss #2 mL (Trulicity) Allergies Allergy/AdvReac Type Severity Reaction Status Date / Time gabapentin AdvReac Mild drowsiness Verified 03/03/23 11:07 Review of Systems 2 Review of Systems: No fever no chills no diaphoresis Yes all other systems are reviewed and are negative [facility] Past Medical History Attestation statement: The following information was validated with the patient. Onset Date is defined in the Problem List Problems that require an onset date and time if occurred within 24 hrs of arrival to the ED Aortic Dissection and Rupture; Neurologic impairment; Cardiopulmonary Arrest; Endotracheal Intubation; Insertion or Replacement of Mechanical Circulatory Assist Device Medical History Cervical disc disease Lumbar spondylosis Anxiety Vitamin D deficiency Vitamin B12 deficiency Obesity (BMI 30-39.9) Constipation Abnormal ultrasound of breast H/O radioactive iodine thyroid ablation (~2008) Overweight (BMI 25.0-29.9) Depression Insomnia Thoracic vertebral fracture Patellofemoral arthritis GERD (gastroesophageal reflux disease) Acquired hypothyroidism Fibromyalgia Low back pain Surgical History History of esophagogastroduodenoscopy (EGD) Hx of colonoscopy H/O hand surgery S/P hysterectomy S/P laparoscopic sleeve gastrectomy (~03/16/17) History of arthroscopy of left shoulder (~09/2016) History of arthroscopy of right shoulder (~08/2015) H/O thyroidectomy (~2008) Family History Family History Father Cerebrovascular accident (CVA) Mother Diabetes Hypertension Social History Social History Housing: House Alcohol intake: never Patient Tobacco Use Status: Never used Tobacco Smoked in Last 30 Days: No e-Cigarette/Vaping Use: Never Used Second Hand Smoke Exposure: Yes Use of substances other than those prescribed or required for medical reasons: No Advance Directives: No Advance Directives Information Provided: Yes service: No Current occupational status: disabled Cognitive needs: No Hearing needs: No Vision needs: Yes Physical Exam 2 Vital Signs: Vital Signs: Last Vital Signs Temp 96.6 F L 03/03/23 18:06 Pulse 66 03/03/23 20:00 Resp 16 03/03/23 20:00 BP 100/53 L 03/03/23 20:00 Pulse Ox 98 03/03/23 20:00 O2 Del Method Room Air 03/03/23 20:00 BMI result Body Mass Index 29.2 Medications Administered Discontinued Medications Generic Name Dose Route Start Last Admin Trade Name Freq PRN Reason Stop Dose Admin Acetaminophen 650 mg 03/03/23 18:09 03/03/23 18:11 Acetaminophen 325 Mg Tablet PO 03/03/23 18:10 650 mg ONCE ONE Administration Sodium Chloride 1,000 mls @ 999 mls/hr 03/03/23 18:45 03/03/23 18:46 Ns IV 03/03/23 19:45 999 mls/hr .Q1H1M STACEY Administration Ondansetron HCl 4 mg 03/03/23 18:08 03/03/23 18:11 Ondansetron Odt 4 Mg Tab.Rapdis TRANSLINGU 03/03/23 18:09 4 mg ONCE ONE Administration Medical Decision Making Medical Decision Making [facility] Narrative: My interpretation of patient's EKG showed a sinus rhythm heart rate is 60 MN QRS QTC within normal limits. Patient's TSH was low however patient's free T4 is actually normal. Unlikely to be the cause of patient's symptoms. Patient's chest x-ray was normal. There has no evidence of pneumonia pneumothorax. Patient's hemoglobin is normal there is no evidence of anemia electrolytes are normal LFTs are normal no evidence for biliary disease. Patient's troponin is normal history not consistent with ACS. Her flu COVID RSV were all negative. There has no evidence for viral illness. Question near syncopal episode. Patient is 47 years old. Otherwise well. Workup was negative. Will have patient workup on an outpatient basis with Cardiology. In stable condition. Patient has no risk for PE. Differential Diagnosis Differential Diagnoses: The differential diagnosis associated with the presentation includes Near syncope, palpitation Admission/Observation Consideration of admission/observation: Escalation of care including admission/observation considered No arrhythmia was detected Lab Data [facility] Lab Attestation statement: I reviewed the patient's lab results. 03/03/23 11:17 03/03/23 11:17 Labs: Lab Results 03/03/23 03/03/23 Range/Units 11:17 19:11 WBC 5.8 (4.8-10.8) X10*3/uL RBC 4.70 (4.20-5.50) X10*6/uL Hgb 13.1 (12.0-16.0) g/dl Hct 39.4 (37.0-47.0) % MCV 83.8 (80.0-98.0) fL MCH 27.9 (27.0-33.0) pg MCHC 33.2 (31.0-35.0) g/dl RDW 12.2 (11.0-16.0) % Plt Count 235 (160-400) X10*3/uL MPV 10.4 (9.4-12.3) fL Immature Gran % (Auto) 0.2 (0.0-0.4) % Neut % (Auto) 64.2 (45-73) % Lymph % (Auto) 29.9 (20-40) % [place] % (Auto) 4.3 (2-11) % Eos % (Auto) 0.7 (0-4) % Baso % (Auto) 0.7 (0-2) % Lymph # (Auto) 1.7 (1.2-4.9) X10*3/uL [place] # (Auto) 0.3 (0.1-1.2) X10*3/uL Eos # (Auto) 0.0 (0.0-0.4) X10*3/uL Baso # (Auto) 0.0 (0.0-0.2) X10*3/uL Abs Immat Gran (auto) 0.01 (0.00-0.03) X10*3/uL Absolute Neuts (auto) 3.7 (2.0-8.3) x10*3/uL Absolute Nucleated RBC 0.000 (0.0-0.012) X10*3/uL Nucleated RBC % (auto) 0.0 (0.0-0.2) /100WBC D-Dimer High Sensitivty < 150 NG/ML Sodium 142 (135-145) mmol/L Potassium 4.0 (3.3-5.1) mmol/L Chloride 103 (96-108) mmol/L Carbon Dioxide 31 H (22-29) mmol/L Anion Gap 12 (12-20) BUN 18 H (9-16) mg/dL Creatinine 0.71 (0.5-1.4) mg/dL Estim Creat Clear Calc 95.9 Estimated GFR > 60 Random Glucose 89 (60-115) mg/dL Calcium 9.8 D (8.4-10.2) mg/dL Total Bilirubin 0.9 (0.0-1.0) mg/dL Direct Bilirubin 0.3 (0.0-0.5) mg/dL AST 14 (5-31) U/L ALT 15 (0-31) U/L Alkaline Phosphatase 63 (39-117) U/L Troponin I High Sens < 2.7 (<3.5-17.0) ng/L Total Protein 7.1 (6.5-8.0) g/dL Albumin 4.0 (3.5-5.0) g/dL TSH < 0.01 L (0.32-4.0) uIU/mL Free T4 1.37 (0.71-1.85) ng/dL Influenza Type A (PCR) NEGATIVE (Negative) Influenza Type B (PCR) NEGATIVE (Negative) RSV RNA Qual (PCR) NEGATIVE (Negative) SARS-CoV-2 RNA (RT-PCR) NEGATIVE (Negative) Independent Interpretation I performed an independent interpretation of an: EKG (Sinus heart rate is 70 MN QRS QTC within normal limits there has no acute ST segment elevation.) and Plain X-Ray (Chest x-ray was grossly negative for any acute evidence of pneumonia) Radiology Impression Discussion of test interpretation with radiology: I have reviewed the radiologist's reading. External Record Review External record reviewed: Office record Discharge Plan Discharge Clinical Impression: Heart palpitations, Near syncope Patient Disposition: Home, Self-Care Instructions: Heart Palpitations (ED), Syncope (ED) Prescriptions: No Action mecobalamin (vitamin B12) 1,000 mcg tablet,chewable 1,000 mcg PO DAILY 90 Days Qty: 90 3RF diclofenac sodium 75 mg tablet,delayed release (DR/EC) 75 mg PO BID PRN (Reason: for pain) Qty: 60 3RF Trulicity 1.5 mg/0.5 mL pen injector 1.5 mg subcut QWEEK Qty: 2 3RF levothyroxine 175 mcg tablet 175 mcg PO DAILY calcium carbonate 500 mg calcium (1,250 mg) tablet,chewable 500 mg PO BID hydroxyzine HCl 25 mg tablet 25 mg PO TID PRN (Reason: itching) Qty: 21 0RF cholecalciferol (vitamin D3) 1,250 mcg (50,000 unit) capsule 1,250 mcg PO QWEEK Qty: 13 0RF (DME) ORTHOTIC SUPPORT ANKLET for PLANTAR FASCIITIS bilateral See Rx Instructions .Route .MEDSUPPLY Qty: 2 0RF Rx Instructions: As directed docusate sodium 100 mg capsule 100 mg PO BEDTIME Qty: 90 3RF polyethylene glycol 3350 [Miralax] 17 gram/dose powder 17 g PO DAILY Qty: 510 2RF pantoprazole 40 mg tablet,delayed release (DR/EC) 40 mg PO DAILY Qty: 90 2RF Rx Instructions: take one tablet half an hour before breakfast sennosides [Natural Senna Laxative] 8.6 mg tablet 17.2 mg PO BEDTIME Qty: 180 3RF simethicone [Gas Relief (simethicone)] 125 mg capsule 125 mg PO TID-QID PRN (Reason: abdominal distention) Qty: 120 2RF sucralfate 100 mg/mL suspension 10 ml PO BID Qty: 400 3RF Rx Instructions: Please take it at noon time and at bedtime Referrals: Ty Cohen MD [Physician] - 03/06/23
--- NOTE | 2023-03-03 18:41 | PC.NURSE ---
Patient reports on mon she felt her hear racing and started having chest pain. reports sob and weakness with exertion. States that yeserday started having a headache and high BP`s. Reports no cardiac hx or high bp`s. Denies any sicki contact. Reports nausea without vomiting. Reports chronic constipation.
[2023-03-03] MEDS: 0.9 % Sodium Chloride 1,000 ML 999 ML IV (18:46)
[2023-03-03 19:55] LABS: TSH reflex Free T4 < 0.01 uIU/mL (0.32-4.0)
[2023-03-03 19:58] LABS: Influenza A PCR NEGATIVE (Negative); Influenza B PCR NEGATIVE (Negative); Resp Syncy Virus RNA Qual PCR NEGATIVE (Negative); SARS COV2 PCR INHOUSE NEGATIVE (Negative)
[2023-03-03 20:00] VITALS: BP 100/53; PULSE 66; RESP 16; O2SAT 98
[2023-03-03 20:00] LABS: D Dimer High Sensitivity < 150 NG/ML
[2023-03-03 20:37] LABS: Free T4 (Free Thyroxine) 1.37 ng/dL (0.71-1.85)
[2023-03-03 23:57] VITALS: BP 156/74; PULSE 64; RESP 14; O2SAT 98
== END 2023-03-04 00:03 | disposition home or self-care (01) ==
PROVIDERS: Emergency Medicine; Emergency Provider Emergency Medicine Emergency Medical Services; PCP Internal Medicine
DX: R00.2 Palpitations (principal); R55 Syncope and collapse; R51.9 Headache, unspecified; Z11.52 Encounter for screening for COVID-19; Z20.822 Contact with and (suspected) exposure to COVID-19
CPT/HCPCS: 0241U; 36415; 71045; 80048; 80076; 84439; 84443; 84484; 85025; 85379; 93005; 96360; 96361; 99285

== ENCOUNTER → 2023-03-03 10:41 | Outpatient (BNV) | payer OTHER, SELFPAY | PROVIDERS: PCP Internal Medicine; Visit Provider Internal Medicine | DX: R94.31 Abnormal electrocardiogram [ECG] [EKG] (principal) | CPT/HCPCS: 93010 ==

== ENCOUNTER → 2023-03-08 10:02 | Outpatient (REF) | payer OTHER, SELFPAY ==
--- NOTE | 2023-03-08 10:09 | ECG_ITS ---
Test Reason : PALPITATIONS Blood Pressure : / mmHG Vent. Rate : 069 BPM Atrial Rate : 069 BPM P-R Int : 194 ms QRS Dur : 086 ms QT Int : 404 ms P-R-T Axes : 056 032 050 degrees QTc Int : 432 ms Normal sinus rhythm Nonspecific T wave abnormality Abnormal ECG When compared with ECG of 03-MAR-2023 11:12, No significant change was found Referred By: Tez Clifford Electronically Signed By:Ty Cohen
== END ==
LOC: HO.CARD 10:02
PROVIDERS: PCP Internal Medicine; Visit Provider Internal Medicine
DX: R00.2 Palpitations (principal)
CPT/HCPCS: 93005

== ENCOUNTER → 2023-03-08 10:09 | Outpatient (BNV) | payer OTHER, SELFPAY | PROVIDERS: PCP Internal Medicine; Visit Provider Internal Medicine Cardiovascular Disease | DX: R94.31 Abnormal electrocardiogram [ECG] [EKG] (principal) | CPT/HCPCS: 93010 ==

== ENCOUNTER 2023-03-09 12:45 | Outpatient (AMB) | payer OTHER, SELFPAY ==
[2023-03-09 12:57] VITALS: BP 100/62; PULSE 66; BMI 29.3
--- NOTE | 2023-03-09 12:57 | A.OFFVIS_ITS ---
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 Intake Note: New patient dx palpitation Hide And Skin Fleshing Machine Operator Required: Yes Hide And Skin Fleshing Machine Operator Name: signed consent Buckle Inspector: Buckle Inspector Present Accompanied by: Spouse Allergies gabapentin Adverse Reaction (Mild, Verified 03/03/23 11:07) drowsiness Medication List - Last Reconciled 03/09/23 by Andrea Villavicencio MD calcium carbonate 500 mg PO BID cholecalciferol (vitamin D3) 1,250 mcg PO QWEEK diclofenac sodium 75 mg PO BID PRN hydroxyzine HCl 25 mg PO TID PRN levothyroxine 175 mcg PO DAILY mecobalamin (vitamin B12) 1,000 mcg PO DAILY 90 days [ORTHOTIC SUPPORT ANKLET for PLANTAR FASCIITIS As directed] pantoprazole 40 mg PO DAILY simethicone (Gas Relief (simethicone)) 125 mg PO TID-QID PRN sucralfate 10 mL PO BID HPI HPI Comments History of Present Illness Details Thank you for referring Marianela in cardiology consultation today for recent onset symptoms of palpitations which are very bothersome. She is a 47-year-old female with prior history of total thyroidectomy in 2004 for thyroid cancer as per her. She she has been since then managed with high dose of levothyroxine, currently on 175 mcg. Her most recent TSH was less than 0.01 but T4 was within normal limits. She says a TSH is designed to be always below 0.01 and has been a chronic issue. She has had hysterectomy in the past. However she started recently since last Monday having symptoms of palpitations. It started with a syncopal episode followed by rapid heart rate where she feels heart rapidly beating fast lasted for 5 minutes and then stops suddenly. She had associated shortness of breath. Since then she has had many episodes of similar intensity with rapid heart rate starting suddenly and then stopping in 3-5 minutes. There is no clear triggering factors. She is concerned about the symptoms and was referred here for urgent evaluation. A Holter monitor and echocardiogram has been ordered but not performed as yet. She does have a smart watch but she has not monitored her heart during that time. She did come to the emergency room and by the time she came to the emergency room her symptoms had subsided and her EKG at shown normal sinus rhythm. She denies any heart failure symptoms. She does complain of having sudden warmth and then feeling cold symptoms consistent with heart flashes related to menopause. She denies any syncopal episodes since then. No exertional chest pain. [facility] Medical History Cervical disc disease Lumbar spondylosis Anxiety Vitamin D deficiency Vitamin B12 deficiency Obesity (BMI 30-39.9) Constipation Abnormal ultrasound of breast H/O radioactive iodine thyroid ablation (~2008) Overweight (BMI 25.0-29.9) Depression Insomnia Thoracic vertebral fracture Patellofemoral arthritis GERD (gastroesophageal reflux disease) Acquired hypothyroidism Fibromyalgia Low back pain Surgical History History of esophagogastroduodenoscopy (EGD) Hx of colonoscopy H/O hand surgery S/P hysterectomy S/P laparoscopic sleeve gastrectomy (~03/16/17) History of arthroscopy of left shoulder (~09/2016) History of arthroscopy of right shoulder (~08/2015) H/O thyroidectomy (~2008) Family History Father Cerebrovascular accident (CVA) Mother Diabetes Hypertension Social History Housing: House Alcohol intake: never Patient Tobacco Use Status: Never used Tobacco e-Cigarette/Vaping Use: Never Used Second Hand Smoke Exposure: Yes service: No Current occupational status: disabled Cognitive needs: No Hearing needs: No Vision needs: Yes Female Reproductive History Menstrual Age of Menarche: 10 Review of Systems Const Denies chills, Denies daytime sleepiness, Denies fatigue, Denies fever(s), Denies frequent falls, Denies poor appetite, Denies snoring, Denies stops breathing during sleep, Denies weakness, Denies weight gain and Denies weight loss Eyes Denies loss of vision ENT Denies dizziness and Denies hearing loss Card Denies chest pain, Denies claudication, Denies leg edema, Denies lightheadedness, Denies palpitations, Denies dyspnea, Denies dyspnea on exertion and Denies orthopnea Resp Denies cough, Denies excessive phlegm production, Denies dyspnea, Denies dyspnea on exertion, Denies snoring and Denies wheezing GI Denies abdominal pain, Denies hematochezia, Denies change in bowel habits, Denies nausea and Denies vomiting Denies urinary frequency and Denies dysuria Musc Denies arthralgias, Denies muscle weakness, Denies numbness and Denies other (frequent falls) Skin/Breast Denies nail changes and Denies rash Neuro Denies Abnormal speech present, Denies dizziness, Denies frequent falls, Denies loss of vision, Denies memory loss, Denies numbness and Denies weakness Psych Denies depression and Denies memory loss Endo Denies fatigue and Denies palpitations Robin/Lymph Reports easy bruising and Reports other (anemia) Aller/Immun Denies wheezing Physical Exam Vital Signs: Last Vital Signs Pulse 66 03/09/23 12:57 BP 100/62 03/09/23 12:57 BMI result Body Mass Index 29.3 Const General: cooperative, comfortable, no acute distress, alert, awake and anxious Nutritional Appearance: average body habitus Orientation/consciousness: patient oriented x3 Limitations: no limitations HEENT Head: Yes normocephalic and Yes atraumatic Neck Neck: Yes trachea midline, Yes supple and Yes no JVD Resp Effort & Inspection: normal respiratory effort Auscultation: clear to auscultation bilaterally Cardio Jugular venous distension: no JVD Palpation: normal PMI Rate: regular rate Rhythm: regular rhythm Heart sounds: S1 normal heart sound present, S2 normal heart sound present, no click, no gallops, no murmurs and no rubs GI Auscultation: normal bowel sounds Skin General skin exam: no rashes or lesions noted Neuro General: patient oriented x3 and no focal motor deficits Speech: No Abnormal speech present Extrem General: Yes no clubbing, cyanosis or edema Assessment & Plan Assessment & Plan (1) Palpitations: Code(s): R00.2 - Palpitations Plan: Patient with sudden onset symptoms of palpitation and sudden stopping of palpitations, differential diagnosis include SVT and/or less likely atrial fibrillation. Panic attack and anxiety attack unlikely. Inappropriate sinus tachycardia is also possible related to hormonal imbalance either related to thyroid hormone imbalance and/or menopausal symptoms. I think Holter monitor will help significantly given that she has these symptoms on a daily basis. Also obtain an echocardiogram to evaluate for structural heart issues. These tests will be scheduled in near future. I have meanwhile advised her to use her smart watch to detect if she had EKG capacity to see if she has any arrhythmias. I am avoiding using pharmacotherapy at this point in time so that we may not suppress any of the arrhythmias. Stress mitigation strategies was discussed. Reduction stimulants such as caffeine was discussed. Follow up in the clinic in 4 weeks time, sooner p.r.n.. Thank you for allowing me to partake in the care Medications: Changed From diclofenac sodium 75 mg PO BID PRN 60 tabs 3RF for pain M54.5 - Low back pain, M79.7 - Fibromyalgia To diclofenac sodium 75 mg PO BID PRN for pain M54.5 - Low back pain, M79.7 - Fibromyalgia Coding Level of Care Code New Pt Level 3 (79799) Diagnoses Palpitations R00.2
== END 2023-03-09 13:30 | disposition home or self-care (01) ==
PROVIDERS: PCP Internal Medicine; Visit Provider Internal Medicine Cardiovascular Disease
DX: R00.2 Palpitations (principal)
CPT/HCPCS: 99203

== ENCOUNTER → 2023-03-09 12:45 | Outpatient (BNVA) | payer OTHER, SELFPAY | PROVIDERS: PCP Internal Medicine; Visit Provider Internal Medicine Cardiovascular Disease | DX: R00.2 Palpitations (principal) | CPT/HCPCS: 99202 ==

== ENCOUNTER → 2023-03-24 12:35 | Outpatient (REF) | payer OTHER, SELFPAY ==
--- NOTE | 2023-03-24 12:39 | HM_ITS ---
Conclusion: 1. Patient was monitored for total period of 5 days and 18 hours 2. Baseline was normal sinus rhythm with average heart of 72 beats per minute 3. Rare PACs noted 4. No significant pauses noted 5. No patient reported events MTDD
--- NOTE | 2023-03-24 12:39 | CA_ITS ---
Transthoracic Echocardiogram Patient (Last, First, Middle): Marianela Begum E Gender: Female Date of : 1975 Age: 47 Procedure Date: 03/24/2023 Procedure Type: Transthoracic Echocardiogram Location: OP Height: 160.02 cm Weight: 74.84 kg BSA: 1.78 m2 Heart Rate: 66 bpm BP: 100 / 62 mmHg It Program Manager: SB Referring MD: Tez Clifford MD Symptoms: R00.2 - Palpitations Study Quality: Adequate ECG Rhythm: Sinus Conclusions: - The left ventricular systolic function is normal. The calculated ejection fraction is 66% by biplane method. - No obvious valvular pathology seen on this study. Findings Left Ventricle Normal left ventricular cavity size. The left ventricular systolic function is normal. The calculated ejection fraction is 66% by biplane method. There is no evidence of regional wall motion abnormalities. Diastolic function is normal for age. There is mild septal and mild basal asymmetric hypertrophy. LV peak GLS -23.2%. Right Ventricle Normal right ventricular cavity size and systolic function. Atria Both atria are normal in size. Aortic Valve There is a normal trileaflet aortic valve. There is no aortic valve stenosis. There is no aortic valve regurgitation. Mitral Valve The mitral valve appears normal. There is no mitral valve regurgitation. There is no mitral valve stenosis. Pulmonic Valve The pulmonic valve is likely normal. Tricuspid Valve Normal tricuspid valve structure. There is no tricuspid valve regurgitation. There is no evidence of pulmonary hypertension. Great Vessels The asc aorta is normal in size. Venous The inferior vena cava is normal in size and collapses greater than 50% with inspiration. Pericardium/Pleural There is no evidence of pericardial effusion. Prior Study Comparison No significant change compared to prior study dated: 02/15/2017. Recommendations, Care & Conclusions No obvious valvular pathology seen on this study. Measurements 2D Linear Measurements IVSd: 0.81 0.6-0.9/0.6-1.0 cm LVIDd: 4.43 3.9-5.3/4.2-5.9 cm LVIDd Index: 2.49 2.4-3.2/2.2-3.1 cm/m2 LVIDs: 2.48 2.0-3.6 cm LVPWd: 0.67 0.7-1.1 cm LA Diam: 4.00 2.7-3.8/3.0-4.0 cm LAIDs Index: 2.25 1.5-2.3 cm/m2 LV Mass: 124.16 67-162/88-224 g LV Mass Index: 69.75 43-95/49-115 g/m2 LVOT Diam: 2.00 3.0+(-)1.3 cm 2D Systolic Function EF 4C: 67.50 >55% EF 2C: 63.60 >55% EF BiP: 66.30 >55% Mitral Valve MV Pk E: 1.07 MV PK A: 0.75 MV Decel Time: 192.00 E/A: 1.40 E'Lateral: 12.80 E'Medial: 9.03 E/E' Med: 11.80 E/E' Lat: 8.40 PHT: 56.00 MVA PHT: 3.93 Decel Craven: 5.59 Aortic Valve AoV Pk Tramaine: 1.33 AoV Pk Grad: 7.00 JYOTI: 3.07 LVOT LVOT Pk Tramaine: 1.30 LVOT Mn Tramaine: 0.86 LVOT VTI: 0.28 LVOT Pk Grad: 7.00 LVOT Mn Grad: 3.00 LVOT Diam: 2.00 LVOT Area: 3.14 Diastolic Function MV Pk E: 1.07 MV Pk A: 0.75 E/A: 1.40 E'Medial: 9.03 E/E' Med: 11.80 E' Laterial: 12.80 E/E' Lat: 8.40 Right Ventricle TAPSE (mm): 25.70 TVS' Tramaine: 14.50 Tricuspid Valve RA Press: 3.00 Great Vessels Aorta Sinus of Valsalva: 3.00 2.0-3.5 cm Ao Asc: 2.90 2.1-3.4 cm Pulmonary Veins Pulm Vein S/D 1.80 Pulmonary Valve PV Pk Tramaine: 1.01 Peak PV Grad: 4.00 Updated in Other Vendor System with Status of Final Diogo Malik MD electronically signed on 03/25/2023 11:18:24 AM with status of Final
== END ==
LOC: HO.CARD 12:35
PROVIDERS: PCP Internal Medicine; Visit Provider Internal Medicine
DX: R00.2 Palpitations (principal)
CPT/HCPCS: 93242; 93306; 93356

== ENCOUNTER → 2023-03-24 12:39 | Outpatient (BNV) | payer OTHER, SELFPAY | PROVIDERS: PCP Internal Medicine; Visit Provider Internal Medicine | DX: R00.2 Palpitations (principal) | CPT/HCPCS: 93244; 93306 ==

== ENCOUNTER 2023-03-27 09:41 | Outpatient (AMB) | payer OTHER, SELFPAY ==
--- NOTE | 2023-03-27 10:04 | MHC.OFFVIS ---
Intake Vital Signs 03/27/23 10:07 Height 5 ft 3 in Weight 167 lb BMI 29.6 BP 113/54 L Blood Pressure Location Lt brachial Position Sitting Pulse 66 Intake Visit Reasons: 6 month follow up Intake Note: Patient 6 month follow up for Constipation. Patient cc: abdominal pain with bloating on and off, acid reflex, and between diarrhea and constipation. Head Of Talent Management Required: No Accompanied by: Self / Same As Patient Allergies gabapentin Adverse Reaction (Mild, Verified 03/27/23 10:04) drowsiness HPI 6 month follow up HPI Details LAST VISIT: Constipation Continue Maalox and Senokot. Patient was encouraged to increase fluid intake and activity to increase better bowel motility GERD (gastroesophageal reflux disease) Continue current treatment with pantoprazole and sucralfate. Patient was encouraged to drink plenty fluids increase activity. Sucralfate might be causing his patient constipated. Patient was encouraged to avoid dietary triggers in late night snacking. Staying upright for minimum 3 hours after meals discussed with patient. Postprandial abdominal bloating Patient reports postprandial abdominal bloating. She was encouraged to avoid dietary triggers. Low FODMAP diet and courage. List of food recommended as was list of food to avoid given to patient. Will give patient script for simethicone. I will see her in 6 months, sooner on as needed basis. Patient is agreeable to this plan and verbalizes understanding of instructions. She was given the opportunity to ask questions all questions answered. ? Thank you for allowing me to participate in her care Plan Medications New simethicone (Gas Relief (simethicone)) 125 mg PO TID-QID PRN 120 caps 2RF abdominal distention R14.0 - Abdominal distension (gaseous) Refilled pantoprazole take one tablet half an hour before breakfast 40 mg PO DAILY 90 tabs 2RF K21.9 - Gastro-esophageal reflux disease without esophagitis sennosides (Natural Senna Laxative) 17.2 mg (2 x 8.6 mg) PO BEDTIME 180 tabs 3RF constipation K59.00 - Constipation, unspecified TODAY'S VISIT Patient is here today for follow-up. Patient reports that she has been feeling little better, however she continues to have occasional postprandial abdominal bloating. Patient tried to change her diet for the most part she is avoiding eating large amounts. Patient is using sucralfate on as needed basis. Patient reports occasional postprandial epigastric pain with dyspepsia without dysphagia or odynophagia. Patient reports that she is still having trouble moving her bowels. Tried Senokot and MiraLax, however she states that she had lots of cramps. Patient tried the senna/stool softener combination and states that it was better. Patient denies any melena, hematochezia, unintentional weight loss or ribbon like stools. FORMERLY [facility], [facility]–1983 Medical History Cervical disc disease Lumbar spondylosis Anxiety Vitamin D deficiency Vitamin B12 deficiency Obesity (BMI 30-39.9) Constipation Abnormal ultrasound of breast H/O radioactive iodine thyroid ablation (~2008) Overweight (BMI 25.0-29.9) Depression Insomnia Thoracic vertebral fracture Patellofemoral arthritis GERD (gastroesophageal reflux disease) Acquired hypothyroidism Fibromyalgia Low back pain Surgical History History of esophagogastroduodenoscopy (EGD) Hx of colonoscopy H/O hand surgery S/P hysterectomy S/P laparoscopic sleeve gastrectomy (~03/16/17) History of arthroscopy of left shoulder (~09/2016) History of arthroscopy of right shoulder (~08/2015) H/O thyroidectomy (~2008) Family History Father Cerebrovascular accident (CVA) Mother Diabetes Hypertension Social History Housing: House Alcohol intake: never Patient Tobacco Use Status: Never used Tobacco e-Cigarette/Vaping Use: Never Used Second Hand Smoke Exposure: Yes service: No Current occupational status: disabled Cognitive needs: No Hearing needs: No Vision needs: Yes Female Reproductive History Menstrual Age of Menarche: 10 Review of Systems Const Denies weight gain and Denies weight loss ENT Reports no additional complaints, Denies dysphagia and Denies odynophagia Card Reports no additional complaints Resp Reports no additional complaints GI Denies abdominal pain, Denies belching, Denies melena, Denies bloating, Denies change in bowel habits, Reports constipation, Denies dysphagia, Denies excessive flatus, Reports dyspepsia, Reports heartburn, Denies diarrhea, Denies loose stools, Denies nausea, Denies odynophagia and Denies vomiting Reports no additional complaints Musc Reports no additional complaints Neuro Reports no additional complaints Psych Reports no additional complaints Endo Reports no additional complaints Physical Exam Vital Signs: Last Vital Signs Pulse 66 03/27/23 10:07 BP 113/54 L 03/27/23 10:07 BMI result Body Mass Index 29.6 Const General: healthy appearing, no acute distress and well developed Nutritional Appearance: well nourished Orientation/consciousness: patient oriented x3 Resp Effort & Inspection: normal respiratory effort, able to speak in complete sentences, no tracheal deviation and symmetric chest movement Auscultation: clear to auscultation bilaterally Cardio Rate: regular rate GI Inspection: Yes normal to inspection and No distended Palpation (GI): Soft to palpation, not firm, nontender and No hepatosplenomegaly present Auscultation: normal bowel sounds General: Yes no CVA tenderness Back/Spine/Pelvis Back: no CVA tenderness Skin General skin exam: elasticity normal, turgor normal and dry skin Neuro General: patient oriented x3 Psych Appearance: grossly normal Mental Status: mental status grossly normal Assessment & Plan Assessment & Plan (1) GERD (gastroesophageal reflux disease): Code(s): K21.9 - Gastro-esophageal reflux disease without esophagitis Qualifiers: Esophagitis presence: esophagitis presence not specified Qualified Code(s): K21.9 - Gastro-esophageal reflux disease without esophagitis (2) Constipation: Code(s): K59.00 - Constipation, unspecified Qualifiers: Constipation type: slow transit constipation Qualified Code(s): K59.01 - Slow transit constipation (3) Postprandial abdominal bloating: Code(s): R14.0 - Abdominal distension (gaseous) Plan Patient was encouraged to avoid dietary triggers and late night snacking. Continue pantoprazole in the morning. May use sucralfate at bedtime on as needed basis. Discussed with patient that sucralfate might be constipating. Patient was encouraged to increase fluid intake and activity to promote better bowel motility. Patient will take senna/Colace combination to capsule every evening. Patient will return in 3 months, sooner on as needed basis. Patient is agreeable to this plan and verbalizes understanding of instructions. She was given the opportunity to ask questions and all questions answered. Thank you for allowing me to participate in her care Medications: New sennosides-docusate sodium 8.6-50 mg (Senna Plus) 2 tab-caps (2 x 8.6-50 mg) PO BEDTIME 60 tabs 3RF Refilled pantoprazole take one tablet half an hour before breakfast 40 mg PO DAILY 90 tabs 2RF K21.9 - Gastro-esophageal reflux disease without esophagitis Coding Level of Care Code Est Pt Level 3 (94429) Diagnoses Gastroesophageal reflux disease, unspecified whether esophagitis present K21.9 Esophagitis presence: esophagitis presence not specified Slow transit constipation K59.01 Constipation type: slow transit constipation Postprandial abdominal bloating R14.0 Time Spent (min) 30 Comment 20 minutes spent with patient and additional 10 minutes spent reviewing her records
[2023-03-27 10:07] VITALS: BP 113/54; PULSE 66; BMI 29.6
== END 2023-03-27 11:15 | disposition home or self-care (01) ==
PROVIDERS: PCP Internal Medicine; Visit Provider Nurse Practitioner Family
DX: K21.9 Gastro-esophageal reflux disease without esophagitis (principal); K59.01 Slow transit constipation; R14.0 Abdominal distension (gaseous)
CPT/HCPCS: 99213

== ENCOUNTER → 2023-03-27 09:41 | Outpatient (BNVA) | payer OTHER, SELFPAY | PROVIDERS: PCP Internal Medicine; Visit Provider Nurse Practitioner Family | DX: K21.9 Gastro-esophageal reflux disease without esophagitis (principal); K59.01 Slow transit constipation; R14.0 Abdominal distension (gaseous) | CPT/HCPCS: 99212 ==

== ENCOUNTER 2023-04-06 09:25 | Outpatient (AMB) | payer OTHER, SELFPAY ==
[2023-04-06 09:53] VITALS: BP 114/82; PULSE 65; BMI 29.7
--- NOTE | 2023-04-06 09:53 | A.OFFVIS_ITS ---
Intake Vital Signs 04/06/23 09:53 Height 5 ft 3 in Weight 167 lb 8.821 oz BMI 29.7 BP 114/82 Blood Pressure Location Lt brachial Position Sitting Pulse 65 Pulse Source Pulse Oximeter Intake Visit Reasons: 4 week follow up/Echo/ Holter Supervisor Dried Yeast Required: No Filler Shredding Machine Loader: Filler Shredding Machine Loader Present Allergies gabapentin Adverse Reaction (Mild, Verified 04/06/23 09:55) drowsiness Medication List - Last Reconciled 04/06/23 by Luab Ruiz SEWING PATTERN LAYOUT TECHNICIAN-C calcium carbonate 500 mg PO BID cholecalciferol (vitamin D3) 1,250 mcg PO QWEEK diclofenac sodium 75 mg PO BID PRN hydroxyzine HCl 25 mg PO TID PRN levothyroxine 175 mcg PO DAILY mecobalamin (vitamin B12) 1,000 mcg PO DAILY 90 days [ORTHOTIC SUPPORT ANKLET for PLANTAR FASCIITIS As directed] pantoprazole 40 mg PO DAILY sennosides-docusate sodium 8.6-50 mg (Senna Plus) 2 tab-caps (2 x 8.6-50 mg) PO BEDTIME simethicone (Gas Relief (simethicone)) 125 mg PO TID-QID PRN sucralfate 10 mL PO BID HPI 4 week follow up/Echo/ Holter HPI Details Marianela is a 47-year-old female with report of syncopal episode and heart palpitations who recently underwent a echocardiogram and Holter monitor and now presents for follow-up. Today she reports that she has been noticing less heart palpitations then she previously reported. She usually gets it 1 to 2 times a week and came can last a few minutes before resolving. She will feel the heart palpitation but no associated symptoms of lightheadedness or shortness of breath. No recurrent syncopal events. No presyncope, falls. No chest discomfort at rest or with activity. She is normally active throughout the day. Takes meds as directed. Daughter is present. [facility] Medical History Cervical disc disease Lumbar spondylosis Anxiety Vitamin D deficiency Vitamin B12 deficiency Obesity (BMI 30-39.9) Constipation Abnormal ultrasound of breast H/O radioactive iodine thyroid ablation (~2008) Overweight (BMI 25.0-29.9) Depression Insomnia Thoracic vertebral fracture Patellofemoral arthritis GERD (gastroesophageal reflux disease) Acquired hypothyroidism Fibromyalgia Low back pain Surgical History History of esophagogastroduodenoscopy (EGD) Hx of colonoscopy H/O hand surgery S/P hysterectomy S/P laparoscopic sleeve gastrectomy (~03/16/17) History of arthroscopy of left shoulder (~09/2016) History of arthroscopy of right shoulder (~08/2015) H/O thyroidectomy (~2008) Family History Father Cerebrovascular accident (CVA) Mother Diabetes Hypertension Social History Housing: House Alcohol intake: never Patient Tobacco Use Status: Never used Tobacco e-Cigarette/Vaping Use: Never Used Second Hand Smoke Exposure: Yes service: No Current occupational status: disabled Cognitive needs: No Hearing needs: No Vision needs: Yes Female Reproductive History Menstrual Age of Menarche: 10 Review of Systems Const All systems reviewed & are unremarkable except as noted in HPI and below ENT Denies dizziness Card Denies chest pain, Denies chest pain at rest, Denies chest pain with activity, Reports rapid heart rate, Denies pedal edema, Denies edema, Denies leg edema, Denies lightheadedness, Reports palpitations, Denies dyspnea, Denies dyspnea on exertion and Denies orthopnea Resp Denies cough, Denies dyspnea and Denies dyspnea on exertion GI Denies hematochezia and Denies change in stool character Musc Denies abnormal gait, Denies limited range of motion, Denies muscle cramps, Denies muscle weakness, Denies numbness, Denies radiating pain into limb, Denies stiffness and Denies tingling Neuro Denies abnormal gait, Denies dizziness, Denies numbness and Denies tingling Endo Reports palpitations Physical Exam Vital Signs: Last Vital Signs Pulse 65 04/06/23 09:53 BP 114/82 04/06/23 09:53 BMI result Body Mass Index 29.7 Const General: cooperative, healthy appearing, comfortable and no acute distress Orientation/consciousness: patient oriented x3 Neck Neck: Yes normal visual inspection and Yes no JVD Resp Effort & Inspection: normal respiratory effort Auscultation: clear to auscultation bilaterally, no crackles, no rales, no rhonchi and no wheezes Cardio Jugular venous distension: no JVD Rate: regular rate Rhythm: regular rhythm Heart sounds: S1 normal heart sound present, S2 normal heart sound present, no murmurs and no rubs Peripheral pulses: Peripheral pulses 2+ throughout Neuro General: patient oriented x3 Extrem General: Yes normal to inspection, No no pedal edema and No calf tenderness Psych Appearance: grossly normal Mental Status: mental status grossly normal Speech and movement: Normal speech and movement present Assessment & Plan Assessment & Plan (1) Palpitations: Code(s): R00.2 - Palpitations Plan: Reports of heart palpitations where her heart suddenly will beat fast lasting up to 5 minutes before going back to normal. She has had syncopal event in the past however none since last visit. No lightheadedness, presyncope or falls. No clear trigger to her events. She drinks decaffeinated coffee. History of thyroidectomy and on levothyroxine. Last TSH less than 0.01 with normal free T4. Her symptom of heart palpitation is concerning for supraventricular tachycardia, less likely to be atrial fibrillation. An echocardiogram done 03/24/2023 showed EF 60%, no valve abnormalities and no regional wall motion abnormalities. A Holter monitor was done on 03/24/2023 for 5 and half days showing sinus rhythm with average heart rate 72, rare PACs. Patient tells me that she did not get her rapid heart palpitations when she was wearing the Holter monitor. Will order a cardiac event monitor to further assess for arrhythmia. She is agreeable to this plan. Emergency care if ever needed for sustained rapid heart palpitations. Continue avoidance of stimulants. Cardiology follow-up in 2 months, sooner if needed (2) Syncope: Code(s): R55 - Syncope and collapse Qualifiers: Syncope type: unspecified Qualified Code(s): R55 - Syncope and collapse Plan: No recurrent events Plan Time spent on chart review, documentation, interview and assessment Orders: Orders ECG 30 day event monitor Today R00.2 - Palpitations Coding Level of Care Code Est Pt Level 3 (05318) Diagnoses Palpitations R00.2 Syncope, unspecified syncope type R55 Syncope type: unspecified Time Spent (min) 24
== END 2023-04-06 10:36 | disposition home or self-care (01) ==
PROVIDERS: PCP Internal Medicine; Visit Provider Nurse Practitioner Family
DX: R00.2 Palpitations (principal); R55 Syncope and collapse
CPT/HCPCS: 99213

== ENCOUNTER → 2023-04-06 09:25 | Outpatient (BNVA) | payer OTHER, SELFPAY | PROVIDERS: PCP Internal Medicine; Visit Provider Nurse Practitioner Family | DX: R00.2 Palpitations (principal); R55 Syncope and collapse | CPT/HCPCS: 99212 ==

== ENCOUNTER → 2023-05-01 09:30 | Outpatient (REF) | payer OTHER, SELFPAY ==
--- NOTE | 2023-05-01 09:33 | HM_ITS ---
Cardiac event monitor Indication: Palpitations Technique: Patient was hooked up to cardiac event monitor on 05/01/2023 for total period of 30 days with compliance rate of about 75%. Findings: Baseline was normal sinus rhythm with lowest heart rate of 67 beats per minute and the fastest heart rate of 130 beats per minute sinus tachycardia. There were no significant PACs or other arrhythmias noted. No significant pauses noted. Rare PVCs were noted. Patient marked the button 46 times., most of the times it correlated with sinus rhythm. About 25% time it correlated with isolated PVCs. Conclusion: 1. Baseline was normal sinus rhythm with no pauses 2. Rare PVCs noted 3. Some of the patient reported events correlated with isolated PVCs MTDD
== END ==
LOC: HO.CARD 09:30
PROVIDERS: PCP Internal Medicine; Visit Provider Nurse Practitioner Family
DX: R00.2 Palpitations (principal)
CPT/HCPCS: 93270

== ENCOUNTER → 2023-05-01 09:33 | Outpatient (BNV) | payer OTHER, SELFPAY | PROVIDERS: PCP Internal Medicine; Visit Provider Internal Medicine Cardiovascular Disease | DX: R00.0 Tachycardia, unspecified (principal); I49.3 Ventricular premature depolarization | CPT/HCPCS: 93272 ==

== ENCOUNTER 2023-06-15 08:53 | Outpatient (AMB) | payer OTHER, SELFPAY ==
[2023-06-15 09:22] VITALS: BP 120/62; PULSE 73; BMI 30.5
--- NOTE | 2023-06-15 09:22 | A.OFFVIS_ITS ---
Vital Signs 06/15/23 09:22 Height 5 ft 3 in Weight 172 lb 6.424 oz BMI 30.5 BP 120/62 Blood Pressure Location Rt brachial Position Sitting Pulse 73 Pulse Source Pulse Oximeter Intake Visit Reasons: r/s 2 mos followup after 30 day holter Computer Forensic Examiner Required: No Allergies gabapentin Adverse Reaction (Mild, Verified 06/15/23 09:24) drowsiness Medication List - Last Reconciled 06/15/23 by Luba Ruiz COMPUTER PROGRAMMER ANALYST-C calcium carbonate 500 mg PO BID cholecalciferol (vitamin D3) 1,250 mcg PO QWEEK diclofenac sodium 75 mg PO BID PRN hydroxyzine HCl 25 mg PO TID PRN levothyroxine 175 mcg PO DAILY mecobalamin (vitamin B12) 1,000 mcg PO DAILY 90 days [ORTHOTIC SUPPORT ANKLET for PLANTAR FASCIITIS As directed] pantoprazole 40 mg PO DAILY sennosides-docusate sodium 8.6-50 mg (Senna Plus) 2 tab-caps (2 x 8.6-50 mg) PO BEDTIME simethicone (Gas Relief (simethicone)) 125 mg PO TID-QID PRN sucralfate 10 mL PO BID HPI HPI r/s 2 mos followup after 30 day holter: Details: Marianela is a 47-year-old female who reported having a syncopal episode followed by heart palpitations, then with reports of intermittent heart palpitation who recently had a cardiac event monitor and now presents for follow-up. Today she reports that she continues to feel brief heart palpitations. She feels her episodes happened still a few times a week and can last a few minutes before going away. Her symptoms are not getting any worse. She has not had any recurrent presyncope or syncope. No chest discomfort at rest or with activity. She is normally active throughout the day. Takes meds as directed. [facility] Medical History Cervical disc disease Lumbar spondylosis Anxiety Vitamin D deficiency Vitamin B12 deficiency Obesity (BMI 30-39.9) Constipation Abnormal ultrasound of breast H/O radioactive iodine thyroid ablation (~2008) Overweight (BMI 25.0-29.9) Depression Insomnia Thoracic vertebral fracture Patellofemoral arthritis GERD (gastroesophageal reflux disease) Acquired hypothyroidism Fibromyalgia Low back pain Surgical History History of esophagogastroduodenoscopy (EGD) Hx of colonoscopy H/O hand surgery S/P hysterectomy S/P laparoscopic sleeve gastrectomy (~03/16/17) History of arthroscopy of left shoulder (~09/2016) History of arthroscopy of right shoulder (~08/2015) H/O thyroidectomy (~2008) Family History Father Cerebrovascular accident (CVA) Mother Diabetes Hypertension Social History Housing: House Alcohol intake: never Patient Tobacco Use Status: Never used Tobacco e-Cigarette/Vaping Use: Never Used Second Hand Smoke Exposure: Yes service: No Current occupational status: disabled Cognitive needs: No Hearing needs: No Vision needs: Yes Female Reproductive History Menstrual Age of Menarche: 10 Review of Systems Const All systems reviewed & are unremarkable except as noted in HPI and below ENT Denies dizziness Card Details: palpitation Denies chest pain, Denies chest pain at rest, Denies chest pain with activity, Denies rapid heart rate, Denies pedal edema, Denies edema, Denies leg edema, Denies lightheadedness, Denies palpitations, Denies dyspnea, Denies dyspnea on exertion and Denies orthopnea Resp Denies cough, Denies dyspnea and Denies dyspnea on exertion GI Denies hematochezia and Denies change in stool character Musc Denies abnormal gait, Denies limited range of motion, Denies muscle cramps, Denies muscle weakness, Denies numbness, Denies radiating pain into limb, Denies stiffness and Denies tingling Neuro Denies abnormal gait, Denies dizziness, Denies numbness and Denies tingling Endo Denies palpitations Physical Exam Vital Signs: Last Vital Signs Pulse 73 06/15/23 09:22 BP 120/62 06/15/23 09:22 BMI result Body Mass Index 30.5 Const General: cooperative, healthy appearing, comfortable and no acute distress Orientation/consciousness: patient oriented x3 Neck Neck: Yes normal visual inspection and Yes no JVD Resp Effort & Inspection: normal respiratory effort Auscultation: clear to auscultation bilaterally, no crackles, no rales, no rhonchi and no wheezes Cardio Jugular venous distension: no JVD Rate: regular rate Rhythm: regular rhythm Heart sounds: S1 normal heart sound present, S2 normal heart sound present, no murmurs and no rubs Peripheral pulses: Peripheral pulses 2+ throughout Neuro General: patient oriented x3 Extrem General: Yes normal to inspection, No no pedal edema and No calf tenderness Psych Appearance: grossly normal Mental Status: mental status grossly normal Speech and movement: Normal speech and movement present Assessment & Plan Assessment & Plan (1) Palpitations: Code(s): R00.2 - Palpitations Category: Medical Plan: Reports of heart palpitations where her heart suddenly will beat fast lasting up to 5 minutes before going back to normal. She has had syncopal event in the past however none since last visit. No lightheadedness, presyncope or falls. No clear trigger to her events. She drinks decaffeinated coffee. History of th yroidectomy and on levothyroxine. Last TSH less than 0.01 with normal free T4. Her symptom of heart palpitation was concerning for supraventricular tachycardia, less likely to be atrial fibrillation. An echocardiogram done 03/24/2023 showed EF 60%, no valve abnormalities and no regional wall motion abnormalities. A Holter monitor was done on 03/24/2023 for 5 and half days showing sinus rhythm with average heart rate 72, rare PACs. Patient tells me that she did not get her rapid heart palpitations when she was wearing the Holter monitor. Cardiac event monitor was done on 05/01/2023 for 30 days with 75% compliance. It showed sinus rhythm with a heart rate range between 67 and 130 with rare PVCs, she triggered the symptom button 40 6 times most of which correlated with sinus rhythm, 25% of the time it correlated with PVCs. Test results reviewed with her in detail. Pathophysiology of PVCs discussed. She does have upcoming appointment with endocrinology in [place]. Gave her a copy of the most recent thyroid tests from [facility] showing TSH less than 0.01. A reduction in her levothyroxine dose would help raise this some and possibly help settle her heart palpitations. Reviewed good hydration, getting adequate rest, stress reduction, avoidance of stimulants.. Cardiology follow-up 3 months, sooner if needed (2) Syncope: Code(s): R55 - Syncope and collapse Category: Medical Qualifiers: Syncope type: unspecified Qualified Code(s): R55 - Syncope and collapse Plan: No recurrent events Plan Time spent on chart review, documentation, interview and assessment Coding Level of Care Code Est Pt Level 4 (55196) Diagnoses Palpitations R00.2 Syncope, unspecified syncope type R55 Syncope type: unspecified Time Spent (min) 28
== END 2023-06-15 09:45 | disposition home or self-care (01) ==
PROVIDERS: PCP Internal Medicine; Visit Provider Nurse Practitioner Family
DX: R00.2 Palpitations (principal); R55 Syncope and collapse
CPT/HCPCS: 99214

== ENCOUNTER → 2023-06-15 08:53 | Outpatient (BNVA) | payer OTHER, SELFPAY | PROVIDERS: PCP Internal Medicine; Visit Provider Nurse Practitioner Family | DX: R00.2 Palpitations (principal); R55 Syncope and collapse | CPT/HCPCS: 99212 ==

== ENCOUNTER 2023-07-03 08:55 | Outpatient (AMB) | payer OTHER, SELFPAY ==
[2023-07-03 08:58] VITALS: BP 119/68; PULSE 63; BMI 30.8
--- NOTE | 2023-07-03 08:58 | A.OFFVIS_ITS ---
Vital Signs 07/03/23 08:58 Height 5 ft 3 in Weight 174 lb 2.643 oz BMI 30.8 BP 119/68 Blood Pressure Location Lt brachial Position Sitting Pulse 63 Intake Visit Reasons: 3 month constipation Intake Note: Marianela presents in the office as a 3 month follow up for constipation. CC: She states that she is not having any concerns - she states constipation has gotten better. Instructor Creeler Required: Yes Instructor Creeler Name: Briana [id number] Allergies gabapentin Adverse Reaction (Mild, Verified 07/03/23 09:01) drowsiness HPI HPI 3 month constipation: Details: LAST VISIT GERD (gastroesophageal reflux disease) Constipation Postprandial abdominal bloating Plan Patient was encouraged to avoid dietary triggers and late night snacking. Continue pantoprazole in the morning. May use sucralfate at bedtime on as needed basis. Discussed with patient that sucralfate might be constipating. Patient was encouraged to increase fluid intake and activity to promote better bowel motility. Patient will take senna/Colace combination to capsule every evening. Patient will return in 3 months, sooner on as needed basis. Patient is agreeable to this plan and verbalizes understanding of instructions. She was given the opportunity to ask questions and all questions answered. ? Thank you for allowing me to participate in her care Medications New sennosides-docusate sodium 8.6-50 mg (Senna Plus) 2 tab-caps (2 x 8.6-50 mg) PO BEDTIME 60 tabs 3RF Refilled pantoprazole take one tablet half an hour before breakfast 40 mg PO DAILY 90 tabs 2RF K21.9 TODAY'S VISIT Patient is here today for follow-up. Patient reports that since last time I have seen her she has been feeling better. Patient continues to take pantoprazole every morning and her symptoms of acid reflux have suppressed. Patient denies dyspepsia, dysphagia or odynophagia. No longer uses sucralfate. Patient reports that she is moving her bowels well. Takes senna plus, 2 tablets every evening and reports to have a bowel movement daily. Occasional abdominal bloating. Patient does admit that she has been more sedentary lately, sitting on the couch and snacking more than usual. Patient states that she did gained few lb and will try to lose weight. Patient will try to go exercising. Patient is taking care of her who had a stroke and her 2 children, 1 of her daughters is autistic. [facility] Medical History (Updated 07/03/23 @ 09:29 by Jocelyn Choi [facility]) Colon cancer screening Cervical disc disease Lumbar spondylosis Anxiety Vitamin D deficiency Vitamin B12 deficiency Obesity (BMI 30-39.9) Constipation Abnormal ultrasound of breast H/O radioactive iodine thyroid ablation (~2008) Overweight (BMI 25.0-29.9) Depression Insomnia Thoracic vertebral fracture Patellofemoral arthritis GERD (gastroesophageal reflux disease) Acquired hypothyroidism Fibromyalgia Low back pain Surgical History History of esophagogastroduodenoscopy (EGD) Hx of colonoscopy H/O hand surgery S/P hysterectomy S/P laparoscopic sleeve gastrectomy (~03/16/17) History of arthroscopy of left shoulder (~09/2016) History of arthroscopy of right shoulder (~08/2015) H/O thyroidectomy (~2008) Family History Father Cerebrovascular accident (CVA) Mother Diabetes Hypertension Social History Housing: House Alcohol intake: never Patient Tobacco Use Status: Never used Tobacco e-Cigarette/Vaping Use: Never Used Second Hand Smoke Exposure: Yes service: No Current occupational status: disabled Cognitive needs: No Hearing needs: No Vision needs: Yes Female Reproductive History Menstrual Age of Menarche: 10 Review of Systems Const Denies weight gain and Denies weight loss ENT Reports no additional complaints, Denies dysphagia and Denies odynophagia Card Reports no additional complaints Resp Reports no additional complaints GI Denies abdominal pain, Denies belching, Denies melena, Reports bloating, Denies change in bowel habits, Denies dysphagia, Denies excessive flatus, Denies dyspepsia, Denies heartburn, Denies diarrhea, Denies loose stools, Denies nausea, Denies odynophagia and Denies vomiting Musc Reports no additional complaints Neuro Reports no additional complaints Psych Reports no additional complaints Endo Reports no additional complaints Physical Exam Vital Signs: Last Vital Signs Pulse 63 07/03/23 08:58 BP 119/68 07/03/23 08:58 BMI result Body Mass Index 30.8 Const General: healthy appearing, no acute distress and well developed Nutritional Appearance: well nourished Orientation/consciousness: patient oriented x3 Resp Effort & Inspection: normal respiratory effort, able to speak in complete sentences, no tracheal deviation and symmetric chest movement Auscultation: clear to auscultation bilaterally Cardio Rate: regular rate GI Inspection: No distended and Yes obesity Palpation (GI): not firm, nontender and No hepatosplenomegaly present Auscultation: normal bowel sounds General: Yes no CVA tenderness Back/Spine/Pelvis Back: no CVA tenderness Skin General skin exam: elasticity normal, turgor normal and dry skin Neuro General: patient oriented x3 Psych Appearance: grossly normal Mental Status: mental status grossly normal Assessment & Plan Assessment & Plan (1) GERD (gastroesophageal reflux disease): Code(s): K21.9 - Gastro-esophageal reflux disease without esophagitis Category: Medical Qualifiers: Esophagitis presence: esophagitis presence not specified Qualified Code(s): K21.9 - Gastro-esophageal reflux disease without esophagitis (2) Constipation: Code(s): K59.00 - Constipation, unspecified Category: Medical Qualifiers: Constipation type: slow transit constipation Qualified Code(s): K59.01 - Slow transit constipation (3) Postprandial abdominal bloating: Code(s): R14.0 - Abdominal distension (gaseous) Plan Continue pantoprazole daily. Avoid dietary triggers and late night snacking. Staying upright for minimum 3 hours after meals discussed with patient. Patient can continue taking senna plus. Patient was encouraged to increase fluid intake and activities to promote better bowel motility. Patient will follow-up in the office in 6 months, sooner on as needed basis. She is agreeable to this plan and verbalizes understanding of instructions. She was given the opportunity to ask questions and all questions answered. Thank you for allowing me to participate in her care Medications: Refilled pantoprazole take one tablet half an hour before breakfast 40 mg PO DAILY 90 tabs 2RF K21.9 - Gastro-esophageal reflux disease without esophagitis sennosides-docusate sodium 8.6-50 mg (Senna Plus) 2 tab-caps (2 x 8.6-50 mg) PO BEDTIME 180 tabs 3RF simethicone (Gas Relief (simethicone)) 125 mg PO TID-QID PRN 120 caps 2RF abdominal distention R14.0 - Abdominal distension (gaseous) Discontinued sucralfate Please take it at noon time and at bedtime Discontinued Reason: Patient no longer taking 10 mL PO BID 400 mL 3RF K21.9 - Gastro-esophageal reflux disease without esophagitis Coding Level of Care Code Est Pt Level 3 (11917) Diagnoses Gastroesophageal reflux disease, unspecified whether esophagitis present K21.9 Esophagitis presence: esophagitis presence not specified Slow transit constipation K59.01 Constipation type: slow transit constipation Postprandial abdominal bloating R14.0 Time Spent (min) 25 Comment 15 minutes spent with patient and additional 10 minutes spent reviewing her records
== END 2023-07-03 09:18 | disposition home or self-care (01) ==
PROVIDERS: PCP Internal Medicine; Visit Provider Nurse Practitioner Family
DX: K21.9 Gastro-esophageal reflux disease without esophagitis (principal); K59.01 Slow transit constipation; R14.0 Abdominal distension (gaseous)
CPT/HCPCS: 99213

== ENCOUNTER → 2023-07-03 08:55 | Outpatient (BNVA) | payer OTHER, SELFPAY | PROVIDERS: PCP Internal Medicine; Visit Provider Nurse Practitioner Family | DX: K21.9 Gastro-esophageal reflux disease without esophagitis (principal); K59.01 Slow transit constipation; R14.0 Abdominal distension (gaseous); Z90.3 Acquired absence of stomach [part of] | CPT/HCPCS: 99212 ==

== ENCOUNTER 2023-08-11 09:19 | Outpatient (AMB) | payer OTHER, SELFPAY ==
--- OUTSIDE RECORDS SUMMARY | 2023-08-11 09:25 | XMS_ITS | Patient Health Record ---
Author Organization [facility] Address [address], [place] [id number] Support Name Relationship Address Phone Herbert Whitaker Emergency Contact Unknown Marianela Shaikh Guarantor Unknown Unavailable REASON FOR REFERRAL No Information SOCIAL HISTORY Sex Assigned At : Social History Observation Description Sex Assigned At Unknown PLAN OF TREATMENT No Information
--- NOTE | 2023-08-11 09:47 | MHC.OFFWIV ---
Intake Vital Signs 08/11/23 09:48 Height 5 ft 3 in Weight 174 lb BMI 30.8 BP 120/66 Blood Pressure Location Rt brachial Position Sitting Pulse 63 Pulse Source Pulse Oximeter Temp 97.8 F Temp Source Oral Pulse Oximetry (%) 98 Intake Visit Reasons: EP migraine/chest/shoulder pain Intake Note: pt is here for headache, left side head pain and shoulder pain Patient Tobacco Use Status: Never used Tobacco Allergies gabapentin Adverse Reaction (Mild, Verified 08/11/23 09:48) drowsiness Do you need a note to return to daycare/school/sports/work: Yes HPI HPI Comments History of Present Illness Details Patient is a 48-year-old female complaining of a new onset of a migraine yesterday with associated left-sided neck and shoulder and chest pain. She describes the chest pain as central and extends to her left shoulder. She states she took Tylenol for her headache with no relief. She states she last took her diclofenac 2 days ago. And has not taken any NSAIDs since. She says she also has heart palpitations but appears to have a history of those. She denies any light sensitivity, sound sensitivity, fevers, new pillow, new mattress, ear pain, new rash, bug bites, sinus pain or sore throat. [facility] Medical History (Updated 08/11/23 @ 10:20 by Krysta Monaco PA-C) Colon cancer screening Cervical disc disease Lumbar spondylosis Anxiety Vitamin D deficiency Vitamin B12 deficiency Obesity (BMI 30-39.9) Constipation Abnormal ultrasound of breast H/O radioactive iodine thyroid ablation (~2008) Overweight (BMI 25.0-29.9) Depression Insomnia Thoracic vertebral fracture Patellofemoral arthritis GERD (gastroesophageal reflux disease) Acquired hypothyroidism Fibromyalgia Low back pain Surgical History History of esophagogastroduodenoscopy (EGD) Hx of colonoscopy H/O hand surgery S/P hysterectomy S/P laparoscopic sleeve gastrectomy (~03/16/17) History of arthroscopy of left shoulder (~09/2016) History of arthroscopy of right shoulder (~08/2015) H/O thyroidectomy (~2008) Family History Father Cerebrovascular accident (CVA) Mother Diabetes Hypertension Social History Housing: House Alcohol intake: never Patient Tobacco Use Status: Never used Tobacco e-Cigarette/Vaping Use: Never Used Second Hand Smoke Exposure: Yes service: No Current occupational status: disabled Cognitive needs: No Hearing needs: No Vision needs: Yes Female Reproductive History Menstrual Age of Menarche: 10 Review of Systems Const All systems reviewed & are unremarkable except as noted in HPI and below Physical Exam Vital Signs: Last Vital Signs Temp 97.8 F 08/11/23 09:48 Pulse 63 08/11/23 09:48 BP 120/66 08/11/23 09:48 Pulse Ox 98 08/11/23 09:48 BMI result Body Mass Index 30.8 Const General: cooperative, healthy appearing, comfortable and no acute distress Orientation/consciousness: patient oriented x3 Limitations: no limitations HEENT Head: Yes normal to inspection, Yes normocephalic, Yes atraumatic and Yes scalp tenderness (left sided) Ears: hearing grossly normal bilaterally, external ears normal, TM's normal bilaterally and mastoids normal General nose exam: Normal external nose present, Normal nares present and No nasal discharge present Face and sinus: Yes normal facial exam and Yes sinuses nontender Mouth: Normal oral and palatal mucosa present and moist mucous membranes Throat: Yes posterior oropharynx normal, Yes tonsils normal and Yes uvula midline Eyes General: appearance normal, both eyes and all related structures Neck Neck: Yes normal visual inspection, Yes no meningeal signs, Yes trachea midline and Yes supple Chest Chest palpation & inspection: normal inspection of the chest and tenderness (left sided) pectoral muscle Resp Effort & Inspection: normal respiratory effort and able to speak in complete sentences Auscultation: clear to auscultation bilaterally Cardio Rate: regular rate Rhythm: regular rhythm Heart sounds: normal S1 and S2 Back/Spine/Pelvis Cervical Spine: No Cervical spine tenderness Thoracic/Lumbar Spine: No thoracic spinal tenderness and No lumbar spinal tenderness Skin General skin exam: no rashes or lesions noted Neuro General: patient oriented x3 and no meningeal signs Extrem General: Yes normal to inspection and Yes no clubbing, cyanosis or edema Office Procedures EKG Details: EKG is normal sinus rhythm at 60 beats per minute, no acute changes. It does stay it can not rule out an anterior infarct, age undetermined but this was present on her EKG on 03/03/2023 [id number], Complete Office Meds ketorolac 30 mg/mL (1 mL) injection solution Performing Provider: Krysta Monaco PA-C Performing Location: [facility] Administered by: Taylor Collins on 08/11/23 10:40 Dose Route Admin Location Dispensed Lot Number Expiration Date [employer] 30 mg IM left gluteus 1 mL [id number] 02/16/24 Assessment & Plan Assessment & Plan (1) Cervicalgia: Code(s): M54.2 - Cervicalgia Plan: Most recent TSH was low however free T4 was normal. EKG showed nothing acute, patient has had entire cardiac workup including a Holter monitor earlier this year which revealed nothing acute. This is all likely stemming from her neck, I will recommend NSAIDs and muscle relaxers and give Toradol injection today (she has not taken any NSAIDS in the last 48 hrs). Patient is aware she should not take any NSAIDs until dinnertime this evening. She is also asking for a prescription for ibuprofen and I did explain she should not take her diclofenac with the ibuprofen, she should take 1 or the other but not both at the same time. I told her she could alternate this with Tylenol. I gave her strict red flag instructions on when to go to the emergency department. Plan See above Orders: Orders AMB Ketorolac Injection Today M54.2 - Cervicalgia Medications: New cyclobenzaprine 5 mg PO TID PRN 7 tabs 0RF muscle spasm ibuprofen 600 mg PO Q6H PRN 10 tabs 0RF pain Coding Level of Care Code Est Pt Level 4 (85226) Diagnoses Cervicalgia M54.2 CPT Codes EKG - CPT: 43141-[id number], Complete ([id number])
[2023-08-11 09:48] VITALS: BP 120/66; PULSE 63; TEMP 36.6; O2SAT 98; BMI 30.8
== END 2023-08-11 10:59 | disposition home or self-care (01) ==
PROVIDERS: PCP Internal Medicine; Visit Provider Physician Assistant
DX: M54.2 Cervicalgia (principal)
CPT/HCPCS: 93000; 96372; 99214; J1885

== ENCOUNTER 2023-10-03 09:14 | Outpatient (AMB) | payer OTHER, SELFPAY ==
[2023-10-03 09:18] VITALS: BP 114/72; PULSE 77; BMI 30.5
--- NOTE | 2023-10-03 09:18 | MHC.OFFVIS ---
Vital Signs 10/03/23 09:18 Height 5 ft 3 in Weight 171 lb 15.369 oz BMI 30.5 BP 114/72 Blood Pressure Location Lt brachial Position Sitting Pulse 77 Pulse Source Pulse Oximeter Intake Visit Reasons: r/s by pt [employer] Required: No Allergies gabapentin Adverse Reaction (Mild, Verified 10/03/23 09:20) drowsiness Medication List - Last Reconciled 10/03/23 by Luba Ruiz NP-C calcium carbonate (Riky-Gest Antacid) mg PO cholecalciferol (vitamin D3) (Vitamin D3) 50 mcg PO DAILY cyclobenzaprine 5 mg PO TID PRN diclofenac sodium 75 mg PO BID PRN hydroxyzine HCl 25 mg PO TID PRN ibuprofen 600 mg PO Q6H PRN levothyroxine 175 mcg PO DAILY mecobalamin (vitamin B12) 1,000 mcg PO DAILY 90 days [ORTHOTIC SUPPORT ANKLET for PLANTAR FASCIITIS As directed] pantoprazole 40 mg PO DAILY simethicone (Gas Relief (simethicone)) 125 mg PO TID-QID PRN HPI HPI r/s by pt: Details: Marianela is a 48-year-old female with history of thyroid cancer status post thyroidectomy 2004, syncope and heart palpitations who now presents for follow-up. Today she reports that she continues to feel brief heart palpitations. She currently feels a palpitation about once a week lasting seconds. She has not had any sustained rapid or irregular rates. She has had no recurrent presyncope or syncope. No chest discomfort at rest or with activity. No shortness of breath, PND, orthopnea or edema. She is normally active throughout the day. Takes meds as directed. PENDING SALE TO [facility] Medical History Colon cancer screening Cervical disc disease Lumbar spondylosis Anxiety Vitamin D deficiency Vitamin B12 deficiency Obesity (BMI 30-39.9) Constipation Abnormal ultrasound of breast H/O radioactive iodine thyroid ablation (~2008) Overweight (BMI 25.0-29.9) Depression Insomnia Thoracic vertebral fracture Patellofemoral arthritis GERD (gastroesophageal reflux disease) Acquired hypothyroidism Fibromyalgia Low back pain Surgical History History of esophagogastroduodenoscopy (EGD) Hx of colonoscopy H/O hand surgery S/P hysterectomy S/P laparoscopic sleeve gastrectomy (~03/16/17) History of arthroscopy of left shoulder (~09/2016) History of arthroscopy of right shoulder (~08/2015) H/O thyroidectomy (~2008) Family History Father Cerebrovascular accident (CVA) Mother Diabetes Hypertension Social History Housing: House Alcohol intake: never Patient Tobacco Use Status: Never used Tobacco e-Cigarette/Vaping Use: Never Used Second Hand Smoke Exposure: Yes service: No Current occupational status: disabled Cognitive needs: No Hearing needs: No Vision needs: Yes Female Reproductive History Menstrual Age of Menarche: 10 Review of Systems Const All systems reviewed & are unremarkable except as noted in HPI and below ENT Denies dizziness Card Details: palpitations Denies chest pain, Denies chest pain at rest, Denies chest pain with activity, Denies rapid heart rate, Denies pedal edema, Denies edema, Denies leg edema, Denies lightheadedness, Denies palpitations, Denies dyspnea, Denies dyspnea on exertion and Denies orthopnea Resp Denies cough, Denies dyspnea and Denies dyspnea on exertion GI Denies hematochezia and Denies change in stool character Musc Denies abnormal gait, Reports limited range of motion, Reports muscle cramps, Denies muscle weakness, Denies numbness, Denies radiating pain into limb, Denies stiffness and Denies tingling Neuro Denies abnormal gait, Denies dizziness, Denies numbness and Denies tingling Endo Denies palpitations Physical Exam Vital Signs: Last Vital Signs Pulse 77 10/03/23 09:18 BP 114/72 10/03/23 09:18 BMI result Body Mass Index 30.5 Const General: cooperative, healthy appearing, comfortable and no acute distress Orientation/consciousness: patient oriented x3 Neck Neck: Yes normal visual inspection and Yes no JVD Resp Effort & Inspection: normal respiratory effort Auscultation: clear to auscultation bilaterally, no crackles, no rales, no rhonchi and no wheezes Cardio Jugular venous distension: no JVD Rate: regular rate Rhythm: regular rhythm Heart sounds: S1 normal heart sound present, S2 normal heart sound present, no murmurs and no rubs Peripheral pulses: Peripheral pulses 2+ throughout Neuro General: patient oriented x3 Extrem General: Yes normal to inspection, No no pedal edema and No calf tenderness Psych Appearance: grossly normal Mental Status: mental status grossly normal Speech and movement: Normal speech and movement present Assessment & Plan Assessment & Plan (1) Palpitations: Code(s): R00.2 - Palpitations Category: Medical Plan: Prior reports of heart palpitations where her heart suddenly will beat fast lasting up to 5 minutes before going back to normal. She has had syncopal event in the past that was followed by heart palpitations. No recent or recurrent presyncope or syncope. Her symptoms were concerning for possible supraventricular tachycardia, less likely to be atrial fibrillation. For evaluation she had an echocardiogram done 03/24/2023 showed EF 60%, no valve abnormalities and no regional wall motion abnormalities. A Holter monitor was done on 03/24/2023 for 5.5 days showing sinus rhythm with average heart rate 72, rare PACs. Patient tells me that she did not get her rapid heart palpitations when she was wearing the Holter monitor. Cardiac event monitor was done on 05/01/2023 for 30 days with 75% compliance. It showed sinus rhythm with a heart rate range between 67 and 130 with rare PVCs, she triggered the symptom button 46 times most of which correlated with sinus rhythm, 25% of the time it correlated with PVCs. On last visit test results reviewed with her in detail. Pathophysiology of PVCs discussed. Her TSH had been running low at 0.01 and she tells me her levothyroxine dose has been reduced since then. She is still noticing brief palpitations lasting a second. When described by her they sound consistent with PVCs. Offered reassurance. Continue with decaffeinated coffee use. Continue physical activity as tolerated, good hydration, getting adequate rest, stress reduction, avoidance of stimulants.. Cardiology follow-up 1 year, sooner if needed (2) Syncope: Code(s): R55 - Syncope and collapse Category: Medical Qualifiers: Syncope type: unspecified Qualified Code(s): R55 - Syncope and collapse Plan: No recurrent events. Unclear full cause of her syncopal event but no significant cardiac findings have been identified. Plan Time spent on chart review, documentation, interview and assessment Coding Level of Care Code Est Pt Level 3 (45620) Diagnoses Palpitations R00.2 Syncope, unspecified syncope type R55 Syncope type: unspecified Time Spent (min) 24
== END 2023-10-03 09:43 | disposition home or self-care (01) ==
PROVIDERS: PCP Internal Medicine; Visit Provider Nurse Practitioner Family
DX: R00.2 Palpitations (principal); R55 Syncope and collapse
CPT/HCPCS: 99213

== ENCOUNTER → 2023-10-03 09:14 | Outpatient (BNVA) | payer OTHER, SELFPAY | PROVIDERS: PCP Internal Medicine; Visit Provider Nurse Practitioner Family | DX: R55 Syncope and collapse (principal); R00.2 Palpitations | CPT/HCPCS: 99212 ==

== ENCOUNTER → 2023-10-04 09:15 | Outpatient (BNV) | payer OTHER, SELFPAY | PROVIDERS: PCP Internal Medicine; Visit Provider Internal Medicine | DX: Z12.31 Encounter for screening mammogram for malignant neoplasm of breast (principal) | CPT/HCPCS: 77063; 77067 ==

== ENCOUNTER 2023-10-04 09:20 | Outpatient (REF) | payer OTHER, SELFPAY ==
--- NOTE | ~2023-10-04 | MM_ITS ---
EXAMINATION: MM SCREENING DIGITAL BREAST TOMOSYNTHESIS, BILATERAL CLINICAL INFORMATION: Screening. Asymptomatic. COMPARISON: Mammography: Comparison is made with available priors. TECHNIQUE: Digital breast tomosynthesis is performed in both the craniocaudal and mediolateral oblique views along with computer-aided detection (CAD). Synthesized 2D images are generated from the tomosynthesis. FINDINGS: There are scattered areas of fibroglandular density (ACR BI-RADS breast composition Category b). Status post bilateral reduction mammoplasty. There are no significant masses, abnormal calcifications, or other abnormalities. MM/MM tomosynthesis screening BI IMPRESSION: No mammographic evidence of malignancy. ASSESSMENT: BI-RADS BI-RADS 2 - Benign Findings RECOMMENDATION: Routine annual mammography screening. 1 year F/U This examination should not preclude the clinical evaluation of a suspicious palpable abnormality. This patient's information was entered into a reminder system with a target due date for their next mammogram. Electronically signed by: Susan Inman DO 11/01/2023 08:42 PM EDT
== END 2023-10-04 09:21 | disposition home or self-care (01) ==
LOC: HO.MAMMO 09:20
PROVIDERS: PCP Internal Medicine; Visit Provider Internal Medicine
DX: Z12.31 Encounter for screening mammogram for malignant neoplasm of breast (principal)
CPT/HCPCS: 77063; 77067

== ENCOUNTER → 2024-01-09 15:38 | Outpatient (BNVA) | payer OTHER, SELFPAY | PROVIDERS: PCP Internal Medicine; Visit Provider Internal Medicine ==

== ENCOUNTER 2024-02-27 09:44 | Outpatient (AMB) | payer OTHER, SELFPAY ==
[2024-02-27 10:00] VITALS: BP 110/62; PULSE 64; O2SAT 99; BMI 28.7
--- NOTE | 2024-02-27 10:00 | A.OFFVIS_ITS ---
Vital Signs 02/27/24 10:00 Height 5 ft 3 in Weight 162 lb 4.163 oz BMI 28.7 BP 110/62 Blood Pressure Location Rt brachial Position Sitting Pulse 64 Pulse Source Pulse Oximeter Pulse Oximetry (%) 99 Oxygen Delivery Method Room Air Intake Visit Reasons: 6 mos FUV. R/S from 01/01/24 Intake Note: ESTABLISHED PATIENT Reason; ~ 9 mos FUV. Changes/concerns? No significant concerns per pt. Still taking pantoprazole and simethicone w/o difficulty. Exhibit Electrician Required: No Exhibit Electrician Services: Exhibit Electrician Offered & Declined Allergies gabapentin Adverse Reaction (Mild, Verified 02/27/24 10:00) drowsiness HPI HPI 6 mos FUV. R/S from 01/01/24: Details: LAST VISIT: GERD (gastroesophageal reflux disease) Constipation Postprandial abdominal bloating Plan Continue pantoprazole daily. Avoid dietary triggers and late night snacking. Staying upright for minimum 3 hours after meals discussed with patient. Patient can continue taking senna plus. Patient was encouraged to increase fluid intake and activities to promote better bowel motility. Patient will follow-up in the office in 6 months, sooner on as needed basis. She is agreeable to this plan and verbalizes understanding of instructions. She was given the opportunity to ask questions and all questions answered. ? Thank you for allowing me to participate in her care Medications Refilled pantoprazole take one tablet half an hour before breakfast 40 mg PO DAILY 90 tabs 2RF K21.9 sennosides-docusate sodium 8.6-50 mg (Senna Plus) 2 tab-caps (2 x 8.6-50 mg) PO BEDTIME 180 tabs 3RF simethicone (Gas Relief (simethicone)) 125 mg PO TID-QID PRN 120 caps 2RF abdominal distention R14.0 Discontinued sucralfate Please take it at noon time and at bedtime Discontinued Reason: Patient no longer taking 10 mL PO BID 400 mL 3RF K21.9 TODAY'S VISIT Patient is here today for follow-up. Patient reports that she has been doing quite well. Takes pantoprazole in the morning and her symptoms of acid reflux are suppressed. However patient does admit to be getting up in the morning with occasional nausea. No vomiting. Patient denies eating late at night. Patient reports that she is using senna only the weekends as she has bowel movements throughout the day. Patient avoids taking senna during the week because she has to work. On her own patient will have a bowel movement every 2-3 days. Patient reports that she drinks plenty fluids. Denies melena, hematochezia, unintentional weight loss or ribbon like stools patient is trying to lose weight on her own and has lost 30 lb within last year. Patient denies any abdominal pain or discomfort, occasional abdominal bloating depending on what she eats [facility] Medical History Colon cancer screening Cervical disc disease Lumbar spondylosis Anxiety Vitamin D deficiency Vitamin B12 deficiency Obesity (BMI 30-39.9) Constipation Abnormal ultrasound of breast H/O radioactive iodine thyroid ablation (~2008) Overweight (BMI 25.0-29.9) Depression Insomnia Thoracic vertebral fracture Patellofemoral arthritis GERD (gastroesophageal reflux disease) Acquired hypothyroidism Fibromyalgia Low back pain Surgical History History of esophagogastroduodenoscopy (EGD) Hx of colonoscopy H/O hand surgery S/P hysterectomy S/P laparoscopic sleeve gastrectomy (~03/16/17) History of arthroscopy of left shoulder (~09/2016) History of arthroscopy of right shoulder (~08/2015) H/O thyroidectomy (~2008) Family History Father Cerebrovascular accident (CVA) Mother Diabetes Hypertension Social History Housing: House Alcohol intake: never Patient Tobacco Use Status: Never used Tobacco e-Cigarette/Vaping Use: Never Used Second Hand Smoke Exposure: Yes service: No Current occupational status: disabled Cognitive needs: No Hearing needs: No Vision needs: Yes Female Reproductive History Menstrual Age of Menarche: 10 Review of Systems Const Denies weight gain and Denies weight loss ENT Reports no additional complaints, Denies dysphagia and Denies odynophagia Card Reports no additional complaints Resp Reports no additional complaints GI Denies abdominal pain, Denies belching, Denies melena, Reports bloating, Denies change in bowel habits, Reports tenesmus, Reports constipation, Denies dysphagia, Denies excessive flatus, Denies dyspepsia, Denies heartburn, Denies diarrhea, Denies loose stools, Reports nausea, Denies odynophagia and Denies vomiting Musc Reports no additional complaints Neuro Reports no additional complaints Psych Reports no additional complaints Endo Reports no additional complaints Physical Exam Vital Signs: Last Vital Signs Pulse 64 02/27/24 10:00 BP 110/62 02/27/24 10:00 Pulse Ox 99 02/27/24 10:00 Oxygen Delivery Method Room Air 02/27/24 10:00 BMI result Body Mass Index 28.7 Const General: healthy appearing, no acute distress and well developed Nutritional Appearance: well nourished Orientation/consciousness: patient oriented x3 Resp Effort & Inspection: normal respiratory effort, able to speak in complete sentences, no tracheal deviation and symmetric chest movement Auscultation: clear to auscultation bilaterally Cardio Rate: regular rate GI Inspection: No distended and Yes obesity Palpation (GI): not firm, nontender and No hepatosplenomegaly present Auscultation: normal bowel sounds General: Yes no CVA tenderness Back/Spine/Pelvis Back: no CVA tenderness Skin General skin exam: elasticity normal, turgor normal and dry skin Neuro General: patient oriented x3 Psych Appearance: grossly normal Mental Status: mental status grossly normal Assessment & Plan Assessment & Plan (1) GERD (gastroesophageal reflux disease): Code(s): K21.9 - Gastro-esophageal reflux disease without esophagitis Category: Medical Qualifiers: Esophagitis presence: esophagitis presence not specified Qualified Code(s): K21.9 - Gastro-esophageal reflux disease without esophagitis (2) Constipation: Code(s): K59.00 - Constipation, unspecified Category: Medical Qualifiers: Constipation type: slow transit constipation Qualified Code(s): K59.01 - Slow transit constipation (3) Postprandial abdominal bloating: Code(s): R14.0 - Abdominal distension (gaseous) Plan Patient will continue avoiding dietary triggers and late night snacking. Reports occasional nausea in the morning, will send a script for famotidine at bedtime. Patient was encouraged to stay upright for minimum 3 hours after meals. Continue pantoprazole daily. Avoid NSAIDs patient can try to take 1 Senokot daily to see if it helps increase fluid intake and activity to promote better bowel motility. Follow-up in 6 months, sooner on as needed basis. Patient is agreeable this plan and verbalizes understanding of instructions. She was given the opportunity to ask questions and all questions answered. Thank you for allowing me to participate in her care Medications: New famotidine (Pepcid) 20 mg PO BEDTIME 30 tabs 3RF K21.9 - Gastro-esophageal reflux disease without esophagitis Coding Level of Care Code Est Pt Level 3 (37042) Diagnoses Gastroesophageal reflux disease, unspecified whether esophagitis present K21.9 Esophagitis presence: esophagitis presence not specified Slow transit constipation K59.01 Constipation type: slow transit constipation Postprandial abdominal bloating R14.0 Time Spent (min) 30 Comment 20 minutes spent with patient and additional 10 minutes spent reviewing her records
== END 2024-02-27 13:29 | disposition home or self-care (01) ==
PROVIDERS: PCP Internal Medicine; Visit Provider Nurse Practitioner Family
DX: K21.9 Gastro-esophageal reflux disease without esophagitis (principal); K59.01 Slow transit constipation; R14.0 Abdominal distension (gaseous)
CPT/HCPCS: 99213

== ENCOUNTER → 2024-02-27 09:44 | Outpatient (BNVA) | payer OTHER, SELFPAY | PROVIDERS: PCP Internal Medicine; Visit Provider Nurse Practitioner Family | DX: K59.00 Constipation, unspecified (principal); K21.9 Gastro-esophageal reflux disease without esophagitis; K59.01 Slow transit constipation; R14.0 Abdominal distension (gaseous); Z79.899 Other long term (current) drug therapy | CPT/HCPCS: 99212 ==

== ENCOUNTER 2024-03-11 09:03 | Outpatient (AMB) | payer OTHER, SELFPAY ==
[2024-03-11 09:07] VITALS: BP 112/70; PULSE 66; O2SAT 98; BMI 28.5
--- NOTE | 2024-03-11 09:07 | MHC.PC.OV ---
Vital Signs 03/11/24 09:07 Height 5 ft 3 in Weight 161 lb 2 oz BMI 28.5 BP 112/70 Blood Pressure Location Lt brachial Position Sitting Pulse 66 Pulse Source Pulse Oximeter Pulse Oximetry (%) 98 Oxygen Delivery Method Room Air Intake Visit Reasons: Annual Exam - see comments Support Dba Required: No Accompanied by: Self / Same As Patient Allergies gabapentin Adverse Reaction (Mild, Verified 03/11/24 09:25) drowsiness Medication List - Last Reconciled 03/11/24 by Tez Clifford MD calcium carbonate (Riky-Gest Antacid) mg PO cholecalciferol (vitamin D3) (Vitamin D3) 50 mcg PO DAILY cyanocobalamin (vitamin B-12) 1,000 mcg (2 x 500 mcg) PO DAILY 90 days cyclobenzaprine 5 mg PO TID PRN diclofenac sodium 75 mg PO BID PRN famotidine (Pepcid) 20 mg PO BEDTIME hydroxyzine HCl 25 mg PO TID PRN ibuprofen 600 mg PO Q6H PRN levothyroxine 175 mcg PO DAILY [ORTHOTIC SUPPORT ANKLET for PLANTAR FASCIITIS As directed] pantoprazole 40 mg PO DAILY simethicone (Gas Relief (simethicone)) 125 mg PO TID-QID PRN Tobacco use date assessed: 03/11/24 Dental Screening Dental Screen Date: 03/11/24 Did you have a dental visit in the last 12 months?: No Did you have a dental problem in the last 6 months where you did not have access to dental care?: No Was dental information given to patient?: No HPI Annual Exam - see comments HPI Details Patient comes in today for her annual physical examination - was last seen here on 11/22/2022 Patient states that she has been experiencing recurrent burning pain over the bottom of both feet for over 1 yr now States that her feet symptoms often feel worse at night Relates also (+) frequent bilateral ankle pain especially when she is on her feet all day States that the burning sensation on her feet feels worse when her ankles are also hurting She has been wearing ankle braces over both ankles whenever she can to help alleviate some of her symptoms and would like to know if the office can provide her with some braces/splints at this time Adds that she has also been feeling more depressed lately Recalls that she used to take Fluoxetine 10 mg daily in the past and would like to go back on it for now if possible States that she feels okay otherwise She denies any headaches or dizziness Denies any chest pains, no SOB No nausea/vomiting, no abdominal pain No change in bowel habits noted She needs a few of her Rx refilled She has no follow up labs done recently and will need to get these updated Her last mammogram was done in September 2023 and she will be due for her next mammogram in September 2024 She had her screening colonoscopy done with Dr. Trejo a couple of years ago on 05/19/2022 - her colonoscopy was normal and she will be due for repeat colonoscopy in 10 yrs States that her yearly pap smear and gynecology exam is up-to-date - she goes to gynecology at [facility] and her next appointment with them is on 04/08/2024 [facility] Medical History (Updated 03/11/24 @ 10:59 by Tez Clifford MD) Overweight (BMI 25.0-29.9) Cervical disc disease Lumbar spondylosis Anxiety Vitamin D deficiency Vitamin B12 deficiency Constipation Abnormal ultrasound of breast H/O radioactive iodine thyroid ablation (~2008) Depression Insomnia Thoracic vertebral fracture Patellofemoral arthritis GERD (gastroesophageal reflux disease) Acquired hypothyroidism Fibromyalgia Surgical History History of esophagogastroduodenoscopy (EGD) Hx of colonoscopy H/O hand surgery S/P hysterectomy S/P laparoscopic sleeve gastrectomy (~03/16/17) History of arthroscopy of left shoulder (~09/2016) History of arthroscopy of right shoulder (~08/2015) H/O thyroidectomy (~2008) Family History Father Cerebrovascular accident (CVA) Mother Diabetes Hypertension Social History Housing: House Alcohol intake: never Patient Tobacco Use Status: Never used Tobacco e-Cigarette/Vaping Use: Never Used Second Hand Smoke Exposure: Yes service: No Current occupational status: disabled Cognitive needs: No Hearing needs: No Vision needs: Yes Female Reproductive History Menstrual Age of Menarche: 10 Questionnaire PHQ-9 Over the last 2 weeks, how often have you been bothered by any of the following problems? 1. Little interest or pleasure in doing things: several days 2. Feeling down, depressed, or hopeless: more than half the days 3. Trouble falling or staying asleep, or sleeping too much: several days 4. Feeling tired or having little energy: nearly every day 5. Poor appetite or overeating: more than half the days 6. Feeling bad about yourself - or that you are a failure or have let yourself or your family down: more than half the days 7. Trouble concentrating on things, such as reading the newspaper or watching television: more than half the days 8. Moving or speaking so slowly that other people could have noticed. Or the opposite - being so fidgety or restless that you have been moving around a lot more than usual: several days 9. Thoughts that you would be better off or of hurting yourself in some way: not at all Total score: 14 Depression Screening Interpretation: Positive Depression Screening Follow-up: Existing condition and New Medication prescribed Depression Screening Done: Yes 19192 - PHQ-9 Billing: Yes Source: Developed by Drs. Nicolas Martin, Marcelle Wood, Dom Lepe and colleagues, with an educational gaby from [employer]. Thrive Questionnaire Date Thrive assessed: 03/11/24 I am a: Patient What is your living situation today?: I have a steady place to live Within the past 12 months, did the food you bought not last and you didn't have the money to get more?: Often true Within the past 12 months, did you worry whether your food would run out before you got money to buy more?: Often true Do you have trouble paying for medicines?: No Do you have trouble getting transportation to medical appointments?: No Do you have trouble paying your heating and electricity bill?: Yes Do you have trouble taking care of your child, family member or friend?: Yes Do you have trouble with day-to-day activities such as bathing, preparing meals, shopping, managing finances, etc.?: I choose not to answer this question Are you currently unemployed and looking for a job?: I choose not to answer this question Are you interested in more education?: No Please select the resources that you would like help with: None Currently or been in a relationship where the following occur: I choose not to answer THRIVE Score: 3 AUDIT C Alcohol Use Questionnaire (AUDIT-C) 1. How often do you have a drink containing alcohol?: Never 3. How often do you have six or more drinks on one occasion?: Never Total Score: 0 Score Reviewed/Action Taken: Yes MAYTE-7 AMB Questionnaire MAYTE-7 Date MAYTE - 7 assessed: 03/11/24 Feeling nervous, anxious, or on edge: 1 = Several days Not being able to stop or control worryin = Several days Worrying too much about different things: 1 = Several days Trouble relaxin = Several days Being so restless that it is hard to sit still: 1 = Several days Becoming easily annoyed or irritable: 1 = Several days Feeling afraid as if something awful might happen: 1 = Several days Total MAYTE-7 score (0-4 normal; 5-9 mild; 10-14 moderate; 15-21 severe): 7 Source: Developed by Drs. Nicolas Martin, Marcelle Wood, Dom Lepe and colleagues, with an educational gaby from [employer]. Review of Systems Const Denies chills, Denies fatigue, Denies fever(s), Denies headache(s) and Denies malaise Eyes Denies blurry vision, Denies change in vision, Denies irritation and Denies itchy eyes ENT Denies dysphagia, Denies dizziness, Denies otalgia, Denies headache(s), Denies nasal congestion, Reports neck pain (chronic), Denies odynophagia, Denies sinus pain and Denies sore throat Card Denies chest pain, Denies rapid heart rate, Denies irregular heart rhythm, Denies palpitations and Denies dyspnea Resp Denies chest congestion, Denies cough, Denies dyspnea and Denies wheezing GI Denies abdominal pain, Denies bloating, Denies constipation, Denies dysphagia, Denies heartburn, Denies diarrhea, Denies nausea, Denies odynophagia and Denies vomiting Denies hematuria, Denies urinary frequency, Denies dysuria, Denies urinary incontinence and Denies urinary urgency Musc Reports back pain (chronic), Reports arthralgias (recurrent over both ankles - see HPI), Denies joint swelling, Denies muscle weakness and Reports neck pain (chronic) Skin/Breast Denies breast pain, Denies breast mass, Denies change in pigmentation, Denies lesions, Denies rash and Denies unusual bruising Neuro Reports burning sensations (over the bottom (soles) of both feet - feel worse at night), Denies dizziness, Denies headache(s) and Denies paresthesias Psych Reports anxiety and Reports depression (increasing lately) Endo Denies fatigue and Denies palpitations Robin/Lymph Denies easy bruising Aller/Immun Denies itchy eyes and Denies wheezing Physical exam (Primary Care) Vital Signs: Last Vital Signs Pulse 66 03/11/24 09:07 BP 112/70 03/11/24 09:07 Pulse Ox 98 03/11/24 09:07 Oxygen Delivery Method Room Air 03/11/24 09:07 BMI result Body Mass Index 28.5 Tobacco/Smoking Status: Tobacco use Status Tobacco use date assessed 03/11/24 03/11/24 09:12 Patient Tobacco Use Status Never used Tobacco 03/11/24 09:12 e-Cigarette/Vaping Use Never Used 03/11/24 09:12 PHQ-9: PHQ-9 Score PHQ-9: Total score 14 03/11/24 09:12 Depression Screening Interpretation: Positive Depression Screening Follow-up: Existing condition and New Medication prescribed Thrive Assessment: Date of Thrive Assessment Date Thrive assessed 03/11/24 03/11/24 09:12 Currently or been in a relationship where the following occur: I choose not to answer Const General: no acute distress, alert and awake Orientation/consciousness: patient oriented x3 HENMT Head: Yes normocephalic and Yes atraumatic Ears: external ears normal, TM's normal bilaterally and EAC's normal General nose exam: No nasal discharge present Face and sinus: Yes normal facial exam and Yes sinuses nontender Teeth and gingiva: dentition normal Throat: Yes posterior oropharynx normal and Yes tonsils normal (no TP congestion) Eyes Eyelids: Yes eyelids normal Conjunctivae: conjunctivae normal Pupils: Equal, round and reactive pupils present EOM: EOMs intact bilaterally Neck Neck: Yes supple and No lymphadenopathy Thyroid: Thyroid normal Resp Auscultation: clear to auscultation bilaterally, no rales and no wheezes Cardio Rate: regular rate Rhythm: regular rhythm Heart sounds: no murmurs GI Palpation (GI): Soft to palpation, nontender and No hepatosplenomegaly present Auscultation: normal bowel sounds General: Yes no CVA tenderness Back/Spine/Pelvis Back: no CVA tenderness Cervical Spine: Cervical spine tenderness Thoracic/Lumbar Spine: thoracic spinal tenderness (over the lower thoracic spine) and lumbar spinal tenderness Skin Lesions: no lesions Rashes: no rashes Neuro General: patient oriented x3, moves all extremities, no focal motor deficits and CN's II-XI intact bilaterally Cranial nerves: Yes Equal, round and reactive pupils present Cognition (Neuro): normal cognition Gait exam (Neuro): Normal gait present Extrem General: Yes no clubbing, cyanosis or edema Right lower extremity: ankle Details: tenderness; no swelling Left lower extremity: ankle Details: tenderness; no swelling Coding Level of Care Code Est Pt Prev Care 40-64y(83949) Diagnoses Annual physical exam Z00.00 Acquired hypothyroidism E03.9 Fibromyalgia M79.7 Slow transit constipation K59.01 Constipation type: slow transit constipation Gastroesophageal reflux disease, unspecified whether esophagitis present K21.9 Esophagitis presence: esophagitis presence not specified Vitamin D deficiency E55.9 Vitamin B12 deficiency E53.8 Lumbar spondylosis M47.816 Cervical disc disease M50.90 Bilateral ankle pain, unspecified chronicity M25.571; M25.572 Chronicity: unspecified Peripheral polyneuropathy G62.9 Peripheral neuropathy type: polyneuropathy, unspecified Primary insomnia F51.01 Insomnia type: primary Anxiety F41.9 Episode of recurrent major depressive disorder, unspecified depression episode severity F33.9 Depression Type: major depressive disorder Major depression recurrence: recurrent Active/Remission status: currently active Major depression episode severity: unspecified Overweight (BMI 25.0-29.9) E66.3 Additional Codes PHQ-9 - 06612 - PHQ-9 Billing: Yes ([id number]) Assessment & Plan Assessment & Plan (1) Annual physical exam: Code(s): Z00.00 - Encounter for general adult medical examination without abnormal findings Category: Medical Plan: Check labs Her last mammogram was done in September 2023 and she will be due for her next mammogram in September 2024 She had her screening colonoscopy done with Dr. Trejo a couple of years ago on 05/19/2022 - her colonoscopy was normal and she will be due for repeat colonoscopy in 10 yrs States that her yearly pap smear and gynecology exam is up-to-date - she goes to gynecology at [facility] and her next appointment with them is on 04/08/2024 (2) Acquired hypothyroidism: Code(s): E03.9 - Hypothyroidism, unspecified Category: Medical Plan: Patient is clinically euthyroid at present Continue Levthyroxine 175 mg QD Will recheck her TFTs for follow up (3) Fibromyalgia: Code(s): M79.7 - Fibromyalgia Category: Medical Plan: Patient is encouraged again on regular exercise and physical activity to help manage her fibromyalgia symptoms She was on Pregabalin 75 mg BID, Duloxetine 30 mg QD and Amitriptyline 25 mg Q HS in the past but she stopped taking all of these at some point States that she now only takes Diclofenac 75 mg BID PRN for pain - she does not wish to keep taking a lot of meds if she can avoid them Have cautioned patient that due to her history of gastric sleeve surgery, she should be careful about taking NSAIDs in general as even though her risks may not be as high as someone who's had gastric bypass surgery, NSAIDs can still increase her risk of anastomotic ulcerations and perforations if taken too much or too often Have advised her to try taking OTC Tylenol first and if they do not adequately help with her pain, then she can take Diclofenac but only with food and as needed (4) Constipation: Code(s): K59.00 - Constipation, unspecified Category: Medical Qualifiers: Constipation type: slow transit constipation Qualified Code(s): K59.01 - Slow transit constipation Plan: Patient is again encouraged on increased oral fluids and dietary fiber She was on Linzess 145 mcg QD in the past but is now only taking OTC Docusate 100 mg Q HS PRN, Senna 8.6 mg 2 tabs Q HS PRN and Citrucel 600 mg QD Her colonoscopy done back in 05/2022 came out normal Follow up with GI as scheduled (5) GERD (gastroesophageal reflux disease): Code(s): K21.9 - Gastro-esophageal reflux disease without esophagitis Category: Medical Qualifiers: Esophagitis presence: esophagitis presence not specified Qualified Code(s): K21.9 - Gastro-esophageal reflux disease without esophagitis Plan: Dietary restrictions reinforced Continue Famotidine 40 mg Q HS and Pantoprazole 40 mg QD S/P EGD in 05/2022, which revealed (+) findings of chronic inactive gastritis; H. pylori test was negative Follow up with GI as scheduled (6) Vitamin D deficiency: Code(s): E55.9 - Vitamin D deficiency, unspecified Category: Medical Plan: Continue Vitamin D2 41179 units once a week Will recheck her Vitamin D level for follow up (7) Vitamin B12 deficiency: Comment: S/P bariatric surgery Code(s): E53.8 - Deficiency of other specified B group vitamins Category: Medical Plan: Continue Vitamin B12 1000 mcg QD Will recheck her serum B12 and Folate levels for follow up (8) Lumbar spondylosis: Code(s): M47.816 - Spondylosis without myelopathy or radiculopathy, lumbar region Category: Medical Plan: Her lumbar spine x-rays last done in 2015 revealed (+) lumbar spondylosis Reinforced activity and weight-lifting restrictions Follow up with [facility] as scheduled (9) Cervical disc disease: Code(s): M50.90 - Cervical disc disorder, unspecified, unspecified cervical region Category: Medical Plan: She still has occasional right-sided cervical radicular symptoms; states that her symptoms are otherwise mostly manageable Follow up with [facility] as scheduled (10) Bilateral ankle pain: Code(s): M25.571 - Pain in right ankle and joints of right foot; M25.572 - Pain in left ankle and joints of left foot Category: Medical Qualifiers: Chronicity: unspecified Qualified Code(s): M25.571 - Pain in right ankle and joints of right foot; M25.572 - Pain in left ankle and joints of left foot Plan: Will send her for x-rays of both ankles for further evaluation Per request, will provide her with Rx for ankle braces/splint bilaterally - Rx will be faxed to [facility] (11) Peripheral neuropathy: Code(s): G62.9 - Polyneuropathy, unspecified Category: Medical Qualifiers: Peripheral neuropathy type: polyneuropathy, unspecified Qualified Code(s): G62.9 - Polyneuropathy, unspecified Plan: Discussed with patient that her recurrent feet symptoms are highly suggestive of peripheral neuropathy Will send her for EMG and NCV of both lower extremities for further evaluation (12) Insomnia: Code(s): G47.00 - Insomnia, unspecified Category: Medical Qualifiers: Insomnia type: primary Qualified Code(s): F51.01 - Primary insomnia Plan: Sleep hygiene reinforced She used to take Trazodone 50 mg Q HS but is currently not on any sleep aid and does not wish to take anything else at this time as she feels that she is sleeping well enough lately (13) Anxiety: Code(s): F41.9 - Anxiety disorder, unspecified Category: Medical Plan: Continue Hydroxyzine 25 mg TID PRN (14) Depression: Code(s): F32.9 - Major depressive disorder, single episode, unspecified Category: Medical Qualifiers: Depression Type: major depressive disorder Major depression recurrence: recurrent Active/Remission status: currently active Major depression episode severity: unspecified Qualified Code(s): F33.9 - Major depressive disorder, recurrent, unspecified Plan: Patient reports that she has been feeling very depressed more than usual lately and would like to try going back on some Rx Recalls that she did well on Fluoxetine in the past Will start her back on Fluoxetine 10 mg QD (15) Overweight (BMI 25.0-29.9): Comment: S/P bariatric surgery Code(s): E66.3 - Overweight Category: Medical Plan: Reinforced diet/exercise as tolerated/lose weight Due to her history of gastric sleeve surgery, have cautioned patient against taking NSAIDs frequently in general and if she really needs to, to do so only with food and as needed Plan Follow up in 6 months Orders: Orders Comprehensive [place]. Panel Fast Today E78.00 - Pure hypercholesterolemia, unspecified, Z00.00 - Encounter for general adult medical examination without abnormal findings Free T4 (Free Thyroxine) Today E03.9 - Hypothyroidism, unspecified, Z00.00 - Encounter for general adult medical examination without abnormal findings UA CC w/rflx Micro + Cult Today R30.0 - Dysuria, Z00.00 - Encounter for general adult medical examination without abnormal findings Vitamin B12 and Folate Today E53.8 - Deficiency of other specified B group vitamins, Z00.00 - Encounter for general adult medical examination without abnormal findings Erythrocyte Sedimentation Rate Today G62.9 - Polyneuropathy, unspecified, M25.571 - Pain in right ankle and joints of right foot, M25.572 - Pain in left ankle and joints of left foot, M79.7 - Fibromyalgia Uric Acid Today M25.571 - Pain in right ankle and joints of right foot, M25.572 - Pain in left ankle and joints of left foot XR ankle RT min 3V Today M25.571 - Pain in right ankle and joints of right foot, M25.572 - Pain in left ankle and joints of left foot NE nerve conduction velocity Today G62.9 - Polyneuropathy, unspecified Complete Blood Count Auto Diff Today D64.9 - Anemia, unspecified, Z00.00 - Encounter for general adult medical examination without abnormal findings Lipid Panel Today E78.00 - Pure hypercholesterolemia, unspecified, Z00.00 - Encounter for general adult medical examination without abnormal findings Thyroid Stimulating Hormone Today E03.9 - Hypothyroidism, unspecified, Z00.00 - Encounter for general adult medical examination without abnormal findings Vitamin D 25-OH Total Today E55.9 - Vitamin D deficiency, unspecified, Z00.00 - Encounter for general adult medical examination without abnormal findings C Reactive Protein Today G62.9 - Polyneuropathy, unspecified, M25.571 - Pain in right ankle and joints of right foot, M25.572 - Pain in left ankle and joints of left foot XR ankle LT min 3V Today M25.571 - Pain in right ankle and joints of right foot, M25.572 - Pain in left ankle and joints of left foot NE electromyogram (EMG) Today G62.9 - Polyneuropathy, unspecified Medications: New fluoxetine 10 mg PO DAILY 90 days 90 tabs 1RF diclofenac sodium 1% (Voltaren Arthritis Pain) apply to single knee, ankle, foot; for foot includes sole/toes/top of foot 4 grams topical QID PRN 100 grams 1RF pain [ANKLE BRACE (bilateral)] As directed 2 ea 0RF bilateral ankle pain M25.571 - Pain in right ankle and joints of right foot, M25.572 - Pain in left ankle and joints of left foot Changed From diclofenac sodium 75 mg PO BID PRN 60 tabs 3RF for pain M54.5 - Low back pain, M79.7 - Fibromyalgia To diclofenac sodium take with food and ONLY as needed for severe pain 75 mg PO BID PRN 60 tabs 0RF for pain M54.5 - Low back pain, M79.7 - Fibromyalgia Refilled cyclobenzaprine 5 mg PO TID PRN 30 tabs 0RF muscle spasm
--- OUTSIDE RECORDS SUMMARY | 2024-03-11 13:23 | XMS_ITS | Clinical Summary ---
Author Organization [facility] ity Address [address] [place] [address] Care Team Providers Care Technical Staff Engineer Name Role Phone Tez Clifford MD Primary Care Provider [phone] Allergies No known active allergies Medications Medication Sig Dispensed Refills Start Date End Date Status conjugated estrogens (Premarin) vaginal cream Place 1 Applicator vaginally twice a week. 1 GM vaginally twice weekly 04/03/2023 Active cholecalciferol (VITAMIN D-3) 50 mcg (2,000 unit) capsule Take 1 capsule (2,000 Units total) by mouth 1 (one) time each day. 03/28/2023 Active pantoprazole (PROTONIX) 40 mg EC tablet Take 1 tablet (40 mg total) by mouth 1 (one) time each day. 06/03/2022 Active glycerin-polycarboph l-carbomer (RepHresh) gel Insert 1 applicator into the vagina 3 (three) times a week. 11/22/2021 Active clotrimazole-betamet hasone (LOTRISONE) 1-0.05 % cream APPLY TOPICALLY TO AFFECTED AREA TWICE DAILY FOR NO MORE THAN 10 DAYS 07/27/2021 Active emollient base (LUBRICANTS VAGL) Apply 1 Applicator topically twice a week. 06/29/2020 Active oxyCODONE (OXY-IR) 5 mg immediate release capsule Take one tablet every 4 hours as needed for severe pain. 10/28/2019 Active levothyroxine (SYNTHROID, LEVOTHROID) 200 mcg tablet Take 25 mcg by mouth 1 (one) time each day. Active Active Problems Problem Noted Date Diagnosed Date Overweight (BMI 25.0-29.9) 03/21/2023 Immunizations Name Administration Dates Next Due Hepatitis A-Hepatitis B Adul t (Twinrix) 18yo and older 08/24/2011,03/25/2011,02/23/2011 Hepatitis B (Tbmhcod-V-Ibstz , Recombivax HB-Adult) 19yo and older 02/27/2017,12/26/2016 Tdap Tetanus diptheria acell ular pertussis (Boostrix; Adacel) 7yo and older 09/18/2013 Surgical History Surgery Date Site/Laterality Comments SECTION PROCEDURE: HISTORICAL DELIVERY; COMMENT: x3 OTHER SURGICAL HISTORY 11/2017 Bilateral PROCEDURE: [place] LIG/TRNSXJ FLP TUBE ABDL/VAG APPR UNI/BI; COMMENT: Essure removal APPENDECTOMY PROCEDURE: TN APPENDECTOMY OTHER SURGICAL HISTORY PROCEDURE: ARTHROSCOPY PROCEDURE NEC SHOULDER ARTHROSCOPY 09/2016 Left PROCEDURE: [place] SURGICAL ARTHROSCOPY SHOULDER W/LSS&RESCJ ADS; COMMENT: right 09/2016 STOMACH SURGERY 03/2017 PROCEDURE: [place] UNLISTED PROCEDURE STOMACH; COMMENT: gastric sleeve [facility] THYROIDECTOMY 2004 Bilateral PROCEDURE: HISTORICAL TOTAL THYROIDECTOMY OTHER SURGICAL HISTORY 2015 Right PROCEDURE: NERVE STIMULATOR FOR [place] NV GASTRIC BYPASS PROCEDURE: GASTRIC BYPASS FOR OBESIT HYSTERECTOMY 11/2019 PROCEDURE: HISTORICAL HYSTERECTOMY; COMMENT: Robotic TLH BREAST BIOPSY 04/2020 Left PROCEDURE: [place] BIOPSY BREAST OPEN INCISIONAL; COMMENT: @ [facility]-benign fibocystic changes Medical History Medical History Date Comments Cervical incompetence DX:Cervica l incompetence Anxiety state DX:Anxiety state Generalized osteoarthrosis, unspecified site DX:Generalized osteoarthrosi s, unspecified site Vitamin D insufficiency 04/07/2014 DX:Vitam in D insufficiency; COMMENT: Vitamin D = 24 Bacterial vaginosis 10/12/2015 DX:Bacterial vaginosis Vaginal yeast infection 10/12/2015 DX:Vagin al yeast infection; COMMENT: 11/24/15 , 12/25/15, 02/23/16 Fibromyalgia 2014 DX:Fibromyalgia Dyspareunia in female 11/24/2015 DX:Dyspare unia in female Thyroid cancer (CMS/HCC) 2004 DX:Thyr oid cancer (HCC) Blood type, Rh negative 02/22/2013 DX:Blood type, Rh negative; COMMENT: B negative History of anemia 07/10/2013 DX:History of anemia; COMMENT: H & H 10.6 / 32.8 Family History Medical History Relation Name Comments Other: ovarian cancer Aunt No Known Problems Brother x2 Hypertension Mother Other: ovarian cancer Mother Breast cancer Neg Hx Colon cancer Neg Hx Ovarian cancer Neg Hx Prostate cancer Neg Hx Relation Name Status Comments Aunt Brother x2 Alive Father Maternal Grandfather Maternal Grandmother Mother Alive Paternal Grandfather Paternal Grandmother Sister Alive Social History Tobacco Use Types Packs/Day Years Used Date Smoking Tobacco: Never Smokeless Tobacco: Never Alcohol Use Standard Drinks/Week Comments No 0 (1 standard drink = 0.6 oz pur e alcohol) Sex and Gender Information Value Date Recorded Sex Assigned at Not on file Gender Identity Not on file Sexual Orientation Not on file Job Start Date Occupation Industry Not on file Not on file Not on file Obstetrics History Last Filed Vital Signs Vital Sign Reading Time Taken Comments Blood Pressure 126/63 07/03/2023 9:47 AM EDT Pulse 78 07/03/2023 9:47 AM EDT Temperature - - Respiratory Rate - - Oxygen Saturation - - Inhaled Oxygen Concentration - - Weight 78.9 kg (174 lb) 07/03/2023 9:47 AM EDT Height 160 cm (5' 3 ) 07/03/2023 9:47 AM EDT Body Mass Index 30.82 07/03/2023 9:47 AM EDT Plan of Treatment Upcoming Encounters Date Type Department Care Team (Late st Contact Info) Description 03/21/2024 9:00 AM EST Office Visit Bariatric Surgery - [place] 175 [facility] [address] [place] [phone] Alee Gomez MD 175 [facility] [address] [place] [address] 04/08/2024 11:15 AM EST Office Visit Obstetrics & Gynecology - [facility] [address] [place] [phone] Brigida Sanford CNM 175 [place] [phone] Health Maintenance Due Date Last Done Comments Breast Cancer Screening 1976 COVID-19 Vaccine (#1) 1981 Cervical Cancer Screening: Pap Smear 04/21/2019 04/20/2016, 04/20/2016 Cholesterol Screening (Lipid Panel) 01/16/2022 Colorectal Cancer Screening: Colonoscopy 01/16/2022 Depression Screening 01/16/2022 Social Influencers of Health Screening 01/16/2022 DTaP,Tdap,and Td Vaccines (2 - Td or Tdap) 09/19/2023 09/18/2013 Influenza Vaccine (#1) 2023 Hepatitis A Vaccines Aged Out 08/24/2011, 03/25/2011, 02/23/2011 No longer eligible based on patient's age to complete this topic Hepatitis B Vaccines Completed 02/27/2017, 12/26/2016, 08/24/2011, Additional history exists HIV Screening Completed 06/29/2020 Hepatitis C Screening Completed 06/29/2020 HIB Vaccines Aged Out No longer eligi ble based on patient's age to complete this topic HPV Vaccines Aged Out No longer eligi ble based on patient's age to complete this topic IPV Vaccines Aged Out No longer eligi ble based on patient's age to complete this topic MMR Vaccines Aged Out No longer eligi ble based on patient's age to complete this topic Meningococcal ACWY Vaccine Aged Out N o longer eligible based on patient's age to complete this topic Pneumococcal Vaccine: Pediatrics (0 to 5 Years) and At-Risk Patients (6 to 64 Years) Aged Out No longer eligible based on patient's age to complete this topic RSV Immunization Patients Under 20 months Aged Out No longer eligible based on patient's age to complete this topic Varicella Vaccines Aged Out No longer eligible based on patient's age to complete this topic Procedures Procedure Name Priority Date/Time Associated Diagnosis Comments HEPATITIS C SCREENING Routine 06/29/2020 HIV SCREENING Routine 06/29/2020 HPV Routine 04/20/2016 from Last 3 Months or Most Recently Relevant to Health Maintenance Results * HIV Screening (06/29/2020) HIV Screening abstracted Historical Provider MD TAYLER OCAMPO E * Hepatitis C Screening (06/29/2020) Hepatitis C Screening abstracted Historical Provider MD TAYLER OCAMPO E * Cervical Cancer Screening: HPV (04/20/2016) Cervical Cancer Screening: HPV abstracted, negative Historical Provider MD TAYLER Gutierrez from Last 3 Months or Most Recently Relevant to Health Maintenance Care Teams Technical Staff Engineer Relationship Specialty Start Date End Date Tez Clifford MD [address] [place] [address] [address] [place], [place] PCP - General 11/17/09
== END 2024-03-11 09:39 | disposition home or self-care (01) ==
PROVIDERS: PCP Internal Medicine; Visit Provider Internal Medicine
DX: Z00.00 Encounter for general adult medical examination without abnormal findings (principal); F33.9 Major depressive disorder, recurrent, unspecified; E03.9 Hypothyroidism, unspecified; M79.7 Fibromyalgia; K59.01 Slow transit constipation; K21.9 Gastro-esophageal reflux disease without esophagitis; E55.9 Vitamin D deficiency, unspecified; E53.8 Deficiency of other specified B group vitamins; M47.816 Spondylosis without myelopathy or radiculopathy, lumbar region; M50.90 Cervical disc disorder, unspecified, unspecified cervical region; M25.571 Pain in right ankle and joints of right foot; M25.572 Pain in left ankle and joints of left foot

== ENCOUNTER → 2024-03-11 09:03 | Outpatient (BNVA) | payer OTHER, SELFPAY | PROVIDERS: PCP Internal Medicine; Visit Provider Internal Medicine | DX: Z00.00 Encounter for general adult medical examination without abnormal findings (principal); E03.9 Hypothyroidism, unspecified; M79.7 Fibromyalgia; K59.01 Slow transit constipation; K21.9 Gastro-esophageal reflux disease without esophagitis; E55.9 Vitamin D deficiency, unspecified; E53.8 Deficiency of other specified B group vitamins; M47.816 Spondylosis without myelopathy or radiculopathy, lumbar region; M50.90 Cervical disc disorder, unspecified, unspecified cervical region; M25.571 Pain in right ankle and joints of right foot; M25.572 Pain in left ankle and joints of left foot; G62.9 Polyneuropathy, unspecified; F51.01 Primary insomnia; F41.9 Anxiety disorder, unspecified; F33.9 Major depressive disorder, recurrent, unspecified; E66.3 Overweight; M54.50 Low back pain, unspecified; Z68.28 Body mass index [BMI] 28.0-28.9, adult | CPT/HCPCS: 96127; 99396 ==

== ENCOUNTER 2024-04-16 08:45 | Outpatient (REF) | payer OTHER, SELFPAY ==
--- NOTE | 2024-04-16 08:52 | EMG_ITS ---
Bilateral tibial and peroneal motor studies were performed. Bilateral superficial peroneal and sural sensory studies were performed. Tibial H-reflexes were obtained and paraspinal muscles were tested with a needle. IMPRESSION: Bilateral superficial peroneal sensory neuropathy. Otherwise, no significant abnormality noted. MD GLORIA Strange/REEMA / [id number]
[2024-04-16 09:17] LABS: MANUAL DIFF FLAG NO
--- OUTSIDE RECORDS SUMMARY | 2024-04-16 09:24 | XMS_ITS | Encounter Summary ---
Author Organization [facility] Address [address] [place] [address] Care Team Providers Care Traffic Reporter Name Role Phone Tez Clifford MD Primary Care Provider [phone] Reason for Visit * Reason Comments Gynecologic Exam Encounter Details Date Type Department Care Team (Latest Contact Info) Description 04/08/2024 11:15 AM EST Office Visit Obstetrics & Gynecology - [facility] [address] [place] [phone] Brigida Sanford CNM [address] [place] [address] Encounter for annual routine gynecological examination (Primary Dx); Overweight Social History Tobacco Use Types Packs/Day Years Used Date Smoking Tobacco: Never Smokeless Tobacco: Never Alcohol Use Standard Drinks/Week Comments No 0 (1 standard drink = 0.6 oz pur e alcohol) Comments No Sex and Gender Information Value Date Recorded Sex Assigned at Not on file Legal Sex Female 4:32 AM EST Gender Identity Not on file Sexual Orientation Not on file documented as of this encounter Last Filed Vital Signs Vital Sign Reading Time Taken Comments Blood Pressure 119/80 04/08/2024 10:50 AM EST Pulse 70 04/08/2024 10:50 AM EST Temperature - - Respiratory Rate 16 04/08/2024 10:50 AM EST Oxygen Saturation - - Inhaled Oxygen Concentration - - Weight 72.6 kg (160 lb) 04/08/2024 10:50 AM EST Height 160 cm (5' 3 ) 04/08/2024 10:50 AM EST Body Mass Index 28.34 04/08/2024 10:50 AM EST documented in this encounter Progress Notes * Brigida Sanford CNM - 04/08/2024 11:15 AM EST Subjective Patient ID: Marianela Lopez is a 48 y.o. female. Chief Complaint Patient presents with Gynecologic Exam Marianela lives with her and children. She feels safe and denies DV or IPV. H/O gastric sleeve procedure and recently had breast reduction and abdominal plasty . She is eatingwell including fruits, vegetables and calcium. She does not exercise or work Gynecologic Exam The patient's pertinent negatives include no genital itching, vaginal bleeding or vaginal discharge. She is sexually active. She uses hysterectomy for contraception. Her past medical history is significant for a section. A provider reviewed the following portions of the patient's chart in this encounter and updated as appropriate: Review of Systems Respiratory: Negative. Cardiovascular: Negative. Gastrointestinal: Negative. Endocrine: Negative. Genitourinary: Negative for vaginal discharge. Musculoskeletal: Negative. Breast: Positive for breast lump or mass. Mammogram at [facility] neg 02/2024 repeat in 6 months Allergic/Immunologic: Negative. Neurological: Negative. Hematological: Negative. Objective Physical Exam Genitourinary: Vulva normal. Genitourinary Comments: External genitalia normal, shaved no lesions Vagina normal, no erythema or lesions Cervix absent Uterus absent Adnexa normal no mass or tenderness No vaginal discharge. Cardiovascular: Rate and Rhythm: Normal rate. Pulmonary: Effort: Pulmonary effort is normal. Abdominal: Palpations: Abdomen is soft. There is no mass. Tenderness: There is no abdominal tenderness. Musculoskeletal: General: Normal range of motion. Neurological: General: No focal deficit present. Skin: General: Skin is warm and dry. Psychiatric: Mood and Affect: Mood normal. Assessment/Plan Encounter for annual routine gynecological examination (Primary) PLAN: During the visit, the following areas of concern were addressed: Regular exercise Healthy lifestyle Breast self-examination on a regular basis Menopausal/perimenopausal signs and symptoms, including non-prescription strategies for management Regular gynecologic examinations and frequency of Pap smears. No further pap smears S/P hysterectomy Osteoporosis risk assessment and importance of calcium and vitamin D from dietary sources or supplementation Screening strategies for colon cancer after age 50 Importance of yearly mammography after age 40 (earlier if first-degree relative with breast cancer at a younger age) Family and personal history of cancer reviewed. Based on this evaluation, neither BRCA nor Vang testing are indicated. the patient is overweight. Approaches towards weight loss are discussed, including burning more calories than one takes in by frequent, small meals, portion control, avoiding eating before bedtime, regular exercise with an emphasis on duration rather than intensity and strength training exercise documented in this encounter Plan of Treatment Upcoming Encounters Date Type Department Care Team (Late st Contact Info) Description 05/21/2024 8:00 AM EDT Office Visit Bariatric Surgery - [place] 175 [facility] [address] [place] [address] Alee Gomez MD 175 [facility] [address] [place] [address] documented as of this encounter Visit Diagnoses Diagnosis Encounter for annual routine gynecological examination- Primary Overweight documented in this encounter Historical Medications * This list may reflect changes made after this encounter. Riky-Gest Antacid 200 mg calcium (500 mg) chewable tablet CHEW 2 TABLET 2 TIMES A DAY FOR 30 DAYS 10/20/2023 calcitrioL (ROCALTROL) 0.25 mcg capsule Take 1 capsule (0.25 mcg total) by mouth 1 (one) time each day. 12/21/2023 added in this encounter Additional Health Concerns Assessment Noted Time PHQ-9 Depression Total Score: 7 04/07/19 25 12:25 PM EST documented as of this encounter Care Teams Traffic Reporter Relationship Specialty Start Date End Date Tez Clifford MD [address] [place] [address] Dr [address] [place], [place] PCP - General 11/17/09 documented as of this encounter
--- OUTSIDE RECORDS SUMMARY | 2024-04-16 09:24 | XMS_ITS | Clinical Summary ---
Author Organization [address] [place] [address] [place] [phone] Phone Care Team Providers Care Ground Source Heat Pump Technician Name Role Phone Tez Clifford MD Primary Care Provider [phone] Allergies No known active allergies Medications conjugated estrogens (Premarin) vaginal cream Place 1 Applicator vaginally twice a week. 1 GM vaginally twice weekly 4 Active cholecalciferol (VITAMIN D-3) 50 mcg (2,000 unit) capsule Take 1 capsule (2,000 Units total) by mouth 1 (one) time each day. 4 Active pantoprazole (PROTONIX) 40 mg EC tablet Take 1 tablet (40 mg total) by mouth 1 (one) time each day. 3 Active glycerin-polyca rbophl-carbomer (RepHresh) gel Insert 1 applicator into the vagina 3 (three) times a week. 2 Active clotrimazole-be tamethasone (LOTRISONE) 1-0.05 % cream APPLY TOPICALLY TO AFFECTED AREA TWICE DAILY FOR NO MORE THAN 10 DAYS 2 Active emollient base (LUBRICANTS VAGL) Apply 1 Applicator topically twice a week. 1 Active oxyCODONE (OXY-IR) 5 mg immediate release capsule Take one tablet every 4 hours as needed for severe pain. 0 Active levothyroxine (SYNTHROID, LEVOTHROID) 200 mcg tablet Take 25 mcg by mouth 1 (one) time each day. Active calcitrioL (ROCALTROL) 0.25 mcg capsule Take 1 capsule (0.25 mcg total) by mouth 1 (one) time each day. 4 Active Riky-Gest Antacid 200 mg calcium (500 mg) chewable tablet CHEW 2 TABLET 2 TIMES A DAY FOR 30 DAYS 4 Active Active Problems Problem Noted Date Diagnosed Date Overweight (BMI 25.0-29.9) 03/21/2023 Encounters Date Type Department Care Team Description 04/08/2024 11:15 AM EST Office Visit Obstetrics & Gynecology - [address] [phone] Brigida Sanford CNM Encounter for annual routine gynecological examination (Primary Dx); Overweight from Last 3 Months Immunizations Name Administration Dates Next Due Hepatitis A-Hepatitis B Adul t (Twinrix) 18yo and older 08/24/2011,03/25/2011,02/23/2011 Hepatitis B (Mgnkpbr-H-Edcck , Recombivax HB-Adult) 19yo and older 02/27/2017,12/26/2016 Tdap Tetanus diptheria acell ular pertussis (Boostrix; Adacel) 7yo and older 09/18/2013 Surgical History Surgery Date Site/Laterality Comments SECTION PROCEDURE: HISTORICAL DELIVERY; COMMENT: x3 OTHER SURGICAL HISTORY 11/2017 Bilateral PROCEDURE: [place] LIG/TRNSXJ FLP TUBE ABDL/VAG APPR UNI/BI; COMMENT: Essure removal APPENDECTOMY PROCEDURE: [place] APPENDECTOMY OTHER SURGICAL HISTORY PROCEDURE: ARTHROSCOPY PROCEDURE NEC SHOULDER ARTHROSCOPY 09/2016 Left PROCEDURE: [place] SURGICAL ARTHROSCOPY SHOULDER W/LSS&RESCJ ADS; COMMENT: right 09/2016 STOMACH SURGERY 03/2017 PROCEDURE: [place] UNLISTED PROCEDURE STOMACH; COMMENT: gastric sleeve [facility] THYROIDECTOMY 2005 Bilateral PROCEDURE: HISTORICAL TOTAL THYROIDECTOMY OTHER SURGICAL HISTORY 2016 Right PROCEDURE: NERVE STIMULATOR FOR [place] NV GASTRIC BYPASS PROCEDURE: GASTRIC BYPASS FOR OBESIT HYSTERECTOMY 11/2019 PROCEDURE: HISTORICAL HYSTERECTOMY; COMMENT: Robotic TLH BREAST BIOPSY 04/2020 Left PROCEDURE: [place] BIOPSY BREAST OPEN INCISIONAL; COMMENT: @ [facility] Ctr-benign fibocystic changes Medical History Medical History [...] DX:History of anemia; COMMENT: H & H . 32.8 Family History Medical History Relation Name [...] on file Sexual Orientation Not on file Obstetrics History Para Term AB IAB SAB Ectopic Multiple Livin g Live Births 7 3 3 4 4 3 3 Date Outcome GA Total Labor Labor/2nd/3rd Weight Sex Type Anes PTL Nelia A1 A5 Name Clin 1997 Term 41w 0d 3260 g (115 oz) M CS-Un spec Epidur al Livin g Delivery Location:[place] 2007 SAB 20w 0d Comments:cerclage infe ction 2008 Term 40w 0d 3827 g (135 oz) F CS-LT ranv Spinal Livin g [address] Selma liang Complications:None Delivery Location:[facility] 2013 Term 37w 0d 2580 g (91 oz) F CS-Un spec Epidur al Livin g [address] Selma liang Delivery Location:[facility] Filed Vital Signs Vital Sign Reading Time [...] Mass Index 28.34 04/08/2024 10:50 AM EST Plan of Treatment Upcoming Encounters Date Type Department Care Team (Late st Contact Info) Description 05/21/2024 8:00 AM EDT Office Visit Bariatric Surgery - [place] 175 [facility] [address] [place] [phone] Alee Gomez MD 175 [facility] [place] [address] [place] [address] Health Maintenance Due Date Last Done Comments COVID-19 Vaccine (#1) 1981 Cervical Cancer Screening: Pap Smear 04/21/2019 04/20/2016, 04/20/2016 Cholesterol Screening (Lipid Panel) 01/16/2022 Colorectal Cancer Screening: Colonoscopy 01/16/2022 Social Influencers of Health Screening 01/16/2022 DTaP,Tdap,and Td Vaccines (2 - Td or Tdap) 09/19/2023 09/18/2013 Influenza Vaccine (#1) 2023 Depression Screening 04/07/2025 04/07/2024 Breast Cancer Screening 10/03/2025 10/04/2023 Hepatitis A Vaccines Aged Out 08/24/2011, 03/25/2011, [...] patient's age to complete this topic Meningococcal B Vacine Aged Out No lo nger eligible based on patient's age to complete [...] Procedure Name Priority Date/Time Associated Diagnosis Comments MG MAMMO DIGITAL DIAGNOSTIC BILAT Routine 10/04/2023 9:06 AM EDT HEPATITIS C SCREENING Routine 06/29/2020 HIV SCREENING Routine 06/29/2020 HPV Routine 04/20/2016 from Last 3 Months or Most Recently Relevant to Health Maintenance Results * MG Mammo Digital Diagnostic bilat (10/04/2023 9:06 AM EDT) Anatomical Region Laterality Modality Breast Bilateral Mammography Historical Provider IMG BI PROCEDURES Final R esult * HIV Screening (06/29/2020) HIV Screening abstracted [facility] Provider HEALTH MAINTENANCE Final Result * Hepatitis C Screening (06/29/2020) [facility] Hepatitis C Screening abstracted Historical Provider HEALTH MAINTENANCE Final Result * Cervical Cancer Screening: HPV (04/20/2016) [facility] Cervical Cancer Screening: HPV abstracted, negative Historical Provider HEALTH MAINTENANCE Final Result from Last 3 Months or Most Recently Relevant to Health Maintenance Insurance [facility] Care Teams Ground Source Heat Pump Technician Relationship Specialty Start Date End Date Tez Clifford MD [address] [place] [address] [place] [address] [place] PCP - General 11/17/09
[2024-04-16 09:52] LABS: Basophils Percent Auto 0.5 % (0-2); Eosinophils Absolute Auto 0.1 X10*3/uL (0.0-0.4); Eosinophils Percent Auto 1.3 % (0-4); Hematocrit 38.6 % (37.0-47.0); Hemoglobin 12.9 g/dl (12.0-16.0); Imm Gran Abs Auto 0.02 X10*3/uL (0.00-0.03); Imm Gran Pct Auto 0.3 % (0.0-0.4); Lymphocytes Absolute Auto 1.9 X10*3/uL (1.2-4.9); Mean Corpuscular HGB Conc 33.4 g/dl (31.0-35.0); Mean Corpuscular Volume 86.7 fL (80.0-98.0); Mean Platelet Volume 10.7 fL (9.4-12.3); Monocytes Absolute Auto 0.3 X10*3/uL (0.1-1.2); Monocytes Percent Auto 5.1 % (2-11); Neutrophils Absolute Auto 3.7 x10*3/uL (2.0-8.3); Neutrophils Percent Auto 60.8 % (45-73); Platelet Count 247 X10*3/uL (160-400); Red Blood Count 4.45 X10*6/uL (4.20-5.50); Red Cell Distribution Width 12.2 % (11.0-16.0)
[2024-04-16 10:07] LABS: Appearance Urine Clear; Color Urine Yellow; Glucose Urine UA Negative (Negative); Leukocyte Esterase Urine Negative (Negative); Nitrite Urine Negative (Negative); Specific Gravity - Urine >= 1.030 (1.005-1.025); Urine Blood Negative (Negative); Urine Ketones Trace mg/dL (Negative); Urine Protein Negative (Neg-Trace)
[2024-04-16 10:29] LABS: Alanine Aminotransferase 16 U/L (0-31); Albumin Level 3.9 g/dL (3.5-5.0); Alkaline Phosphatase 59 U/L (39-117); Anion Gap 12 (12-20); Aspartate Amino Transferase 13 U/L (5-31); Bilirubin Total 1.2 mg/dL (0.0-1.0); Blood Urea Nitrogen 14 mg/dL (9-16); C Reactive Protein 1.14 mg/dL (< or = 0.50); Calcium 8.3 mg/dL (8.4-10.2); Carbon Dioxide 28 mmol/L (22-29); Chloride 106 mmol/L (96-108); Cholesterol 163 mg/dL (<200); Estimated Glomerular Filt Rate > 60; Glucose Fasting 86 mg/dL (60-99); HDL Cholesterol 92 mg/dL (>40); LDL Cholesterol Calculated 64 mg/dL (<100); Potassium 3.7 mmol/L (3.3-5.1); Sodium 142 mmol/L (135-145); Total Protein 7.2 g/dL (6.5-8.0); Triglycerides 37 mg/dL (<150)
[2024-04-16 10:35] LABS: Erythrocyte Sedimentation Rate 14 MM/HR (0-20)
[2024-04-16 10:39] LABS: Free T4 (Free Thyroxine) 1.29 ng/dL (0.71-1.85); Thyroid Stimulating Hormone 0.03 uIU/mL (0.32-4.0); Uric Acid 3.3 mg/dL (2.4-5.7); Vitamin D 25-OH Total 26.7 ng/mL (>30)
[2024-04-16 10:54] LABS: Vitamin B12 248 pg/mL (200-900)
== END 2024-04-16 08:46 | disposition home or self-care (01) ==
LOC: HO.NEURO 08:45
PROVIDERS: PCP Internal Medicine; Visit Provider Internal Medicine
DX: M25.572 Pain in left ankle and joints of left foot (principal); M25.571 Pain in right ankle and joints of right foot; G62.9 Polyneuropathy, unspecified; M79.7 Fibromyalgia; E55.9 Vitamin D deficiency, unspecified; E78.00 Pure hypercholesterolemia, unspecified; E03.9 Hypothyroidism, unspecified; R30.0 Dysuria; E53.8 Deficiency of other specified B group vitamins; D64.9 Anemia, unspecified; Z00.00 Encounter for general adult medical examination without abnormal findings
CPT/HCPCS: 36415; 80053; 80061; 81003; 82306; 82607; 82746; 84439; 84443; 84550; 85025; 85652; 86140; 95886; 95911

== ENCOUNTER 2024-08-28 15:44 | Outpatient (AMB) | payer OTHER, SELFPAY ==
--- NOTE | 2024-08-28 15:46 | A.OFFVIS_ITS ---
Vital Signs 08/28/24 15:47 Height 5 ft 3 in Weight 164 lb BMI 29.0 BP 89/53 L Blood Pressure Location Lt brachial Position Sitting Pulse 76 Pulse Oximetry (%) 96 Intake Visit Reasons: 6 mo GERD, IBS Intake Note: Patient 6 months for GERD, and IBS Patient cc: abdominal pain with every food taken, acid reflux with burning sensation, she would like to do an Hpylori text, poor appetite and diarrhea. [employer] Operator Required: No Accompanied by: Self / Same As Patient Allergies gabapentin Adverse Reaction (Mild, Verified 08/28/24 15:47) drowsiness HPI HPI 6 mo GERD, IBS: Details: LAST VISIT: GERD (gastroesophageal reflux disease) Constipation Postprandial abdominal bloating Plan Patient will continue avoiding dietary triggers and late night snacking. Reports occasional nausea in the morning, will send a script for famotidine at bedtime. Patient was encouraged to stay upright for minimum 3 hours after meals. Continue pantoprazole daily. Avoid NSAIDs patient can try to take 1 Senokot daily to see if it helps increase fluid intake and activity to promote better bowel motility. Follow-up in 6 months, sooner on as needed basis. Patient is agreeable this plan and verbalizes understanding of instructions. She was given the opportunity to ask questions and all questions answered. ? Thank you for allowing me to participate in her care New famotidine (Pepcid) 20 mg PO BEDTIME 30 tabs 3RF K21.9 TODAY'S VISIT Patient is here today for follow-up. Patient reports that she continues to have epigastric pain and acid reflux no matter what she is eating. Patient is currently taking pantoprazole in the morning and famotidine at bedtime. Patient reports that pain no matter what she even when she is drinking water. Patient reports occasional nausea without vomiting. Reports occasional dyspepsia without dysphagia or odynophagia. Patient reports burning like sensation in her epigastric area. Reports poor appetite and postprandial diarrhea. Patient denies melena, hematochezia. Reports abdominal bloating. Denies any other GI concerning symptoms. [facility] Medical History (Updated 09/05/24 @ 20:[address] [facility]) Overweight (BMI 25.0-29.9) Cervical disc disease Lumbar spondylosis Anxiety Vitamin D deficiency Vitamin B12 deficiency Constipation Abnormal ultrasound of breast H/O radioactive iodine thyroid ablation (~2008) Depression Insomnia Thoracic vertebral fracture Patellofemoral arthritis GERD (gastroesophageal reflux disease) Acquired hypothyroidism Fibromyalgia Surgical History History of esophagogastroduodenoscopy (EGD) Hx of colonoscopy H/O hand surgery S/P hysterectomy S/P laparoscopic sleeve gastrectomy (~03/16/17) History of arthroscopy of left shoulder (~09/2016) History of arthroscopy of right shoulder (~08/2015) H/O thyroidectomy (~2008) Family History Father Cerebrovascular accident (CVA) Mother Diabetes Hypertension Social History Housing: House Alcohol intake: never Patient Tobacco Use Status: Never used Tobacco e-Cigarette/Vaping Use: Never Used Second Hand Smoke Exposure: Yes service: No Current occupational status: disabled Cognitive needs: No Hearing needs: No Vision needs: Yes Female Reproductive History Menstrual Age of Menarche: 10 Review of Systems Const Denies weight gain and Denies weight loss ENT Reports no additional complaints, Denies dysphagia and Denies odynophagia Card Reports no additional complaints Resp Reports no additional complaints GI Reports abdominal pain (Epigastric), Denies belching, Denies melena, Reports bloating, Denies change in bowel habits, Reports tenesmus, Reports constipation, Denies dysphagia, Denies excessive flatus, Denies dyspepsia, Reports heartburn, Denies diarrhea, Denies loose stools, Reports nausea, Denies odynophagia and Denies vomiting Musc Reports no additional complaints Neuro Reports no additional complaints Psych Reports no additional complaints Endo Reports no additional complaints Physical Exam Vital Signs: Last Vital Signs Pulse 76 08/28/24 15:47 BP 89/53 L 08/28/24 15:47 Pulse Ox 96 08/28/24 15:47 BMI result Body Mass Index 29.0 Const General: healthy appearing, no acute distress and well developed Nutritional Appearance: well nourished Orientation/consciousness: patient oriented x3 Resp Effort & Inspection: normal respiratory effort, able to speak in complete sentences, no tracheal deviation and symmetric chest movement Auscultation: clear to auscultation bilaterally Cardio Rate: regular rate GI Inspection: No distended and Yes obesity Palpation (GI): not firm, nontender and No hepatosplenomegaly present Auscultation: normal bowel sounds General: Yes no CVA tenderness Back/Spine/Pelvis Back: no CVA tenderness Skin General skin exam: elasticity normal, turgor normal and dry skin Neuro General: patient oriented x3 Psych Appearance: grossly normal Mental Status: mental status grossly normal Assessment & Plan Assessment & Plan (1) GERD (gastroesophageal reflux disease): Code(s): K21.9 - Gastro-esophageal reflux disease without esophagitis Category: Medical Qualifiers: Esophagitis presence: esophagitis presence not specified Qualified C ode(s): K21.9 - Gastro-esophageal reflux disease without esophagitis (2) Steatosis, liver: Code(s): K76.0 - Fatty (change of) liver, not elsewhere classified Category: Medical (3) Constipation: Code(s): K59.00 - Constipation, unspecified Category: Medical Qualifiers: Constipation type: slow transit constipation Qualified Code(s): K59.01 - Slow transit constipation (4) Pain with bowel movements: Code(s): R19.8 - Other specified symptoms and signs involving the digestive system and abdomen Category: Medical (5) Abdominal pain: Code(s): R10.9 - Unspecified abdominal pain Category: Medical Qualifiers: Abdominal location: generalized Qualified Code(s): R10.84 - Generalized abdominal pain (6) Umbilical pain: Code(s): R10.33 - Periumbilical pain Category: Medical Plan Will check H pylori. Patient will start taking famotidine twice a day after H pylori testing patient will start Nexium and stop pantoprazole. If positive will treat empirically. Patient will also be sent for upper GI with barium swallow. Avoid dietary triggers in late night snacking. Staying upright for minimum 3 hours after meals discussed with patient. Patient was encouraged to eat low FODMAP diet. List of food recommended as well as list of food to avoid given to patient. Patient will return in 3 months, sooner on as needed basis. She is agreeable to this plan and verbalizes understanding of instructions. She was given the opportunity to ask questions and all questions answered. Thank you for allowing me to participate in his care Orders: Orders [place] upper GI w Ba Swallow 08/28/24 K21.9 - Gastro-esophageal reflux disease without esophagitis Medications: New esomeprazole magnesium (Nexium) 40 mg PO DAILY 30 caps 2RF K21.9 - Gastro- esophageal reflux disease without esophagitis Changed From famotidine 20 mg PO BEDTIME 90 tabs 1RF K21.9 - Gastro-esophageal reflux disease without esophagitis To famotidine 20 mg PO BID 30 tabs 0RF K21.9 - Gastro-esophageal reflux disease without esophagitis Discontinued pantoprazole take one tablet half an hour before breakfast Discontinued Reason: Doctor's Order 40 mg PO DAILY 90 tabs 2RF K21.9 - Gastro-esophageal reflux disease without esophagitis Coding Level of Care Code Est Pt Level 4 (23426) Diagnoses Gastroesophageal reflux disease, unspecified whether esophagitis present K21.9 Esophagitis presence: esophagitis presence not specified Steatosis, liver K76.0 Slow transit constipation K59.01 Constipation type: slow transit constipation Pain with bowel movements R19.8 Generalized abdominal pain R10.84 Abdominal location: generalized Umbilical pain R10.33 Time Spent (min) 40 Comment 25 minutes spent with patient and additional 15 minutes spent reviewing her records
[2024-08-28 15:47] VITALS: BP 89/53; PULSE 76; O2SAT 96; BMI 29.0
--- OUTSIDE RECORDS SUMMARY | 2024-08-28 15:47 | XMS_ITS | Clinical Summary ---
Author Organization [address] [place] [address] [place] [phone] Phone Care Team Providers Care Storm Window Installer Name Role Phone Tez Clifford MD Primary Care Provider Allergies No known active allergies Medications cholecalciferol (VITAMIN D-3) 50 mcg (2,000 unit) [...] A DAY FOR 30 DAYS 4 Active Premarin vaginal cream USE 1 GRAM VAGINALLY TWICE WEEKLY 30 g 3 5 Active estradioL (VIVELLE-DOT) 0.025 mg/[address] 1 patch on the skin 2 (two) times a week. 24 patch 3 5 07/19/19 26 Active Active Problems Problem Noted Date Diagnosed Date Overweight (BMI 25.0-29.9) 03/21/2023 Encounters Date Type Department Care Team Description 07/15/2024 Telephone Obstetrics & Gynecology - [address] [id number] Brigida Sanford CNM menopausal from Last 3 Months Immunizations Name Administration Dates Next Due Hepatitis A-Hepatitis B Adul t (Twinrix) 18yo and older 08/24/2011,03/25/2011,02/23/2011 Hepatitis B (Htdwrjo-R-Fafio , Recombivax HB-Adult) 19yo and older 02/27/2017,12/26/2016 Tdap Tetanus diptheria acell ular pertussis (Boostrix; Adacel) 7yo and older 09/18/2013 Surgical History Surgery Date Site/Laterality Comments SECTION PROCEDURE: HISTORICAL DELIVERY; COMMENT: x3 OTHER SURGICAL HISTORY 11/2017 Bilateral PROCEDURE: [place] LIG/TRNSXJ FLP TUBE ABDL/VAG APPR UNI/BI; COMMENT: Essure removal APPENDECTOMY PROCEDURE: [place] APPENDECTOMY OTHER SURGICAL HISTORY PROCEDURE: ARTHROSCOPY PROCEDURE NEC SHOULDER ARTHROSCOPY 09/2016 Left PROCEDURE: [place] SURGICAL ARTHROSCOPY SHOULDER W/LSS&RESCJ ADS; COMMENT: right 09/2016 STOMACH SURGERY 03/2017 PROCEDURE: [place] UNLISTED PROCEDURE STOMACH; COMMENT: [facility] 2005 Bilateral PROCEDURE: HISTORICAL TOTAL THYROIDECTOMY OTHER SURGICAL HISTORY 2016 Right PROCEDURE: NERVE STIMULATOR FOR TX [place] GASTRIC BYPASS PROCEDURE: GASTRIC BYPASS FOR OBESIT HYSTERECTOMY 11/2019 PROCEDURE: HISTORICAL HYSTERECTOMY; COMMENT: Robotic TLH BREAST BIOPSY 04/2020 Left PROCEDURE: [place] BIOPSY BREAST OPEN INCISIONAL; COMMENT: @ [facility]-benign fibocystic changes Medical History Medical [...] 11/24/2015 DX:Dyspare unia in female Thyroid cancer ([facility]/HCC V24, [facility]/HCC V28) 2004 DX:Thyroid cancer (HCC) Blood type, Rh negative 02/22/2013 [...] CS-Un spec Epidur al Livin g Delivery Location:[place] 2007 SAB 20w 0d Comments:cerclage infe ction 2008 Term 40w 0d 3827 g (135 oz) F CS-LT ranv Spinal Livin g [address] Sel[place] liang Complications:None Delivery Location:[facility] 2013 Term 37w 0d 2580 g (91 oz) F CS-Un spec Epidur al Livin g [address] Selma liang Delivery Location:[facility] Last Filed Vital Signs Vital Sign Reading [...] 04/08/2024 10:50 AM EST Plan of Treatment Health Maintenance Due Date Last Done Comments COVID-19 Vaccine (#1) 1981 Cervical Cancer Screening: Pap Smear 04/21/2019 04/20/2016, 04/20/2016 Colorectal Cancer Screening: Colonoscopy 01/16/2022 Social Influencers of Health Screening 01/16/2022 DTaP,Tdap,and Td Vaccines (2 - Td or Tdap) 09/19/2023 09/18/2013 Influenza Vaccine (#1) 2024 Depression Screening 04/07/2025 04/07/2024 Breast Cancer Screening [...] age to complete this topic Meningococcal B Vaccine Aged Out No l onger eligible based on patient's age to complete this topic Pneumococcal Vaccine: Pediatrics (0 to 5 Years) and At-Risk Patients (6 to 49 Years) Aged Out No longer eligible based [...] Screening (06/29/2020) HIV Screening abstracted Historical Provider HEALTH MAINTENANCE Final Result * Hepatitis C Screening (06/29/2020) Hepatitis C Screening abstracted [facility] Provider HEALTH MAINTENANCE Final Result * Cervical Cancer Screening: HPV (04/20/2016) Cervical Cancer Screening: HPV abstracted, negative [facility] Provider HEALTH MAINTENANCE Final Result from Last 3 Months or Most Recently Relevant to Health Maintenance Insurance [facility] Care Teams Storm Window Installer Relationship Specialty Start Date End Date Tez Clifford MD [address] [place] [address] [address] [place] PCP - General 11/17/09
--- OUTSIDE RECORDS SUMMARY | 2024-08-28 15:47 | XMS_ITS | Data Portability ---
Author Organization DONOVAN PERALTA MD [facility], Main Office Address [address] [place] [address] Assessment Encounter Date Assessment Date Assessment LastModified by Organization Details LastModified Time 11/14/2023 11/14/2023 Audio. telemedicine. 16 min; doximity cmartorell Not available 11/14/2023 12:04:27 05/15/2024 05/15/2024 Audio. telemedicine. 16 min; doximity cmartorell Not available 05/15/2024 11:42:21 Plan of Treatment Reminders Order Date Submit Date Provider Last Modified By Organization Details Last Modified Time Details Appointments None recorded. Lab None recorded. Referral None recorded. Procedures None recorded. Surgeries None recorded. Imaging None recorded. Medication Orders fluconazole 100 mg tablet 2024 025 [facility] #[id number], [address] [place], [address], 10:12:43 fluconazole 100 mg tablet 2023 024 [facility] #[id number], [address] [place], [address], 12:03:18 Patient TargetsNo targets recorded. Patient InstructionsNo instructions recorded. Reason for Referral None Reported. Problems Name Problem SNOMED Code Status Onset Date Resolution Date Notes Provider Name and Address Organization Details Recorded Time Candidiasi s of vagina 81522763 Active 2016 Candidiasi s of vagina; snomeddesc ription: Candidiasi s of vagina; Report Immunity to Registry: Yes; Notes: [facility] 06/2016; Candidias is of vulva and vagina; snomeddesc ription: Candidiasi s of vagina; Report Immunity to Registry: Yes; Notes: [facility] 06/2016; Not Available [facility] 4 06:59:39 Herpesviru s infection [id number] Active 2016 Herpesvira l infection, unspecifie d; snomeddesc ription: Herpes simplex; Report Immunity to Registry: Yes; Notes: HSV 1 pos serology; HSV 2 neg; Not Available [facility] 4 06:59:39 Herpes simplex [id number] Active 2016 Herpes simplex; snomeddesc ription: Herpes simplex; Report Immunity to Registry: Yes; Notes: HSV 1 pos serology; HSV 2 neg; Not Available [facility] 4 06:59:39 Problem Notes None recorded. Medical Equipment None Reported. Medications Name Sig Start Date Stop Date Status Note LastModified by Organization Details LastModified Time cyclobenz aprine 10 mg tablet TAKE 1 TABLET BY MOUTH 3 TIMES A DAY NEEDED. active Not Available Not Available No t Available fluconazo le 100 mg tablet TAKE 1 TABLET BY MOUTH ONE TIME PER WEEK active Not Available Not Available No t Available terconazo le 0.4 % vaginal cream 0.4 % Quantity : 45; Duration : 7; 0 refill(s ) 12/28 completed Duration : 7; VACCINE_ IND: no; Not Available Not Available Not Available levothyro xine 175 mcg tablet TAKE 1 TABLET BY MOUTH MONDAY THROUGH MONDAY, THEN 1/2 TABLET BY MOUTH EVERY MONDAY AND MONDAY active Not Available Not Available No t Available Carafate 100 mg/mL oral suspensio n TAKE 10ML BY MOUTH TWICE A DAY AT NOON AND AT BEDTIME active Not Available Not Available No t Available trazodone 50 mg tablet HYDROCHL ORIDE 50MG TABLET; Quantity : 30; Duration : 30; 0 refill(s ) 09/10 completed Duration : 30; VACCINE_ IND: no; Not Available Not Available Not Available lidocaine 5 % topical cream APPLY TO AFFECTED AREA DAILY NEEDED 07/27 completed Duration : 10; VACCINE_ IND: no; Not Available Not Available Not Available fluconazo le 150 mg tablet 150 MG TABLET; Quantity : 2; Duration : 3; 0 refill(s ) 03/01 completed Duration : 3; VACCINE_ IND: no; Not Available Not Available Not Available senna 8.6 mg tablet TAKE 2 TABLETS (17.2 MG) BY MOUTH AT BEDTIME FOR CONSTIPA TION active Not Available Not Available No t Available Riky-Gest Antacid 200 mg (as calcium carbonate 500 mg) chewable tablet CHEW 2 TABLET 2 TIMES A DAY FOR 30 DAYS active Not Available Not Available No t Available ondansetr on HCl 4 mg tablet TAKE 1 TABLET BY MOUTH EVERY 8 HOURS NEEDED FOR NAUSEA active Not Available Not Available No t Available fluoxetin e 10 mg tablet TAKE 1 TABLET BY MOUTH EVERY DAY active Not Available Not Available No t Available metronida zole 500 mg tablet TOME BRENT TABLETA POR VIA ORAL DOS VECES AL SHERRI 07/27 completed Duration : 10; VACCINE_ IND: no; Not Available Not Available Not Available sulfameth oxazole 800 mg-trimet hoprim 160 mg tablet TAKE 1 TABLET BY MOUTH TWICE A DAY active Not Available Not Available No t Available Miconazol e-7 2 % vaginal cream one applicat or daily x 7 days 10/09 completed Duration : 7; VACCINE_ IND: no; SU_FULL_ NAME: Yary Self alina; Not Available Not Available Not Available levothyro xine 100 mcg tablet TAKE 1 TABLET BY MOUTH EVERY DAY active Not Available Not Available No t Available oxycodone -acetamin ophen 5 mg-325 mg tablet TAKE 1 TO 2 TABLETS BY MOUTH EVERY 4 HOURS NEEDED FOR SEVERE PAIN active Not Available Not Available No t Available amoxicill in 875 mg tablet TAKE 1 TABLET BY MOUTH TWICE A DAY FOR 7 DAYS active Not Available Not Available No t Available famotidin e 20 mg tablet TAKE 1 TABLET BY MOUTH AT BEDTIME active Not Available Not Available No t Available dicyclomi ne 20 mg tablet TOME BRENT TABLETA POR VIA ORAL CUATRO VECES AL SHERRI CUANDO SEA NECESARI O FOR ABDOMINA L PAIN 07/27 completed Duration : 8; VACCINE_ IND: no; Not Available Not Available Not Available phenazopy ridine 100 mg tablet TOME BRENT TABLETA POR VIA ORAL DOS VECES AL SHERRI 07/05 completed Duration : 3; VACCINE_ IND: no; Not Available Not Available Not Available cephalexi n 500 mg capsule TAKE 1 CAPSULE (500 MG TOTAL) BY MOUTH 4 (FOUR) TIMES A DAY FOR 14 DAYS. TAKE WITH FOOD active Not Available Not Available No t Available pantopraz ole 40 mg tablet,de layed release TAKE ONE TABLET HALF AN HOUR BEFORE BREAKFAS TDAILY active Not Available Not Available No t Available Banophen 25 mg tablet 25 MG TABLET; Quantity : 60; Duration : 30; 0 refill(s ) 12/28 completed Duration : 30; VACCINE_ IND: no; Not Available Not Available Not Available fluconazo le 50 mg tablet TOME BRENT TABLETA POR VIA ORAL FOR 1 DOSE, MAY REPEAT IN 3-5 DAYS 07/05 completed Duration : 6; VACCINE_ IND: no; Not Available Not Available Not Available levothyro xine 125 mcg tablet TAKE 1 TABLET BY MOUTH EVERY DAY active Not Available Not Available No t Available clotrimaz ole-betam ethasone 1 %-0.05 % topical cream 0.05%-1% Quantity : 30; Duration : 20; 0 refill(s ) 09/10 completed Duration : 20; VACCINE_ IND: no; Not Available Not Available Not Available levothyro xine 150 mcg tablet TAKE 1 TABLET BY MOUTH EVERY DAY active Not Available Not Available No t Available Gas Relief Extra Strength 125 mg capsule TAKE 1 CAPSULE BY MOUTH 3 TO 4 TIMES A DAY NEEDED FOR ABDOMINA L DISTENTI ON active Not Available Not Available No t Available docusate sodium 100 mg capsule TAKE 1 CAPSULE BY MOUTH EVERY DAY active Not Available Not Available No t Available Banophen 25 mg capsule TAKE 1-2 CAPS BY MOUTH DAILY NEEDED FOR ALLERGY active Not Available Not Available No t Available diclofena c sodium 75 mg tablet,de layed release TAKE 1 TABLET BY MOUTH TWICE A DAY NEEDED FOR PAIN active Not Available Not Available No t Available clindamyc in 2 % vaginal cream APPLY VAGINALL Y ONCE DAILY 07/27 completed Duration : 13; VACCINE_ IND: no; Not Available Not Available Not Available levothyro xine 200 mcg tablet TOME BRENT TABLETA POR VIA ORAL TODOS [place] TAKE WITH 25MGS TOGETHER 07/27 completed Duration : 30; VACCINE_ IND: no; Not Available Not Available Not Available bisacodyl 5 mg tablet,de layed release BISACODY L EC 5 MG TABLET; Quantity : 2; Duration : 1; 0 refill(s ) 2022 active Duration : 1; VACCINE_ IND: no; Not Available Not Available Not Available calcium 500 mg (as calcium carbonate 1,250 mg) chewable tablet Quantity : 60; Duration : 30; 0 refill(s ) 09/10 completed Duration : 30; VACCINE_ IND: no; Not Available Not Available Not Available cyanocoba parker (vit B-12) 1,000 mcg sublingua l tablet TAKE 1 TABLET BY MOUTH EVERY DAY active Not Available Not Available No t Available mupirocin 2 % topical ointment 2 % Quantity : 22; Duration : 11; 0 refill(s ) 03/01 completed Duration : 11; VACCINE_ IND: no; Not Available Not Available Not Available norethind tre acetate 5 mg tablet 5 MG TABLET; Quantity : 60; Duration : 30; 0 refill(s ) 02/08 completed Duration : 30; VACCINE_ IND: no; Not Available Not Available Not Available ibuprofen 600 mg tablet TAKE 1 TABLET BY MOUTH EVERY 6 HOURS NEEDED FOR PAIN active Not Available Not Available No t Available calcitrio l 0.25 mcg capsule TAKE 2 CAPSULES BY MOUTH EVERY DAY active Not Available Not Available No t Available loratadin e 10 mg tablet TOME BRENT TABLETA POR VIA ORAL TODOS [place] 01/10 completed Duration : 30; VACCINE_ IND: no; SU_FULL_ NAME: Yary Martfco fuller; Not Available Not Available Not Available cyclobenz aprine 5 mg tablet TAKE 1 TABLET BY MOUTH 3 TIMES A DAY NEEDED FOR MUSCLE SPASM active Not Available Not Available No t Available Premarin 0.625 mg/gram vaginal cream USE 1 GRAM VAGINALL Y TWICE WEEKLY active Not Available Not Available No t Available Senna Plus 8.6 mg-50 mg tablet TAKE 2 TABLETS BY MOUTH AT BEDTIME active Not Available Not Available No t Available nitrofura ntoin monohydra te/macroc rystals 100 mg capsule TAKE 1 CAPSULE BY MOUTH EVERY 12 HOURS FOR 7 DAYS MUST ADMINIST ER WITH A MEAL/DWAYNE D active Not Available Not Available No t Available duloxetin e 30 mg capsule,d elayed release 30 MG Quantity : 30; Duration : 30; 0 refill(s ) 02/08 completed Duration : 30; VACCINE_ IND: no; Not Available Not Available Not Available duloxetin e 60 mg capsule,d elayed release 60 MG Quantity : 30; Duration : 30; 0 refill(s ) 02/08 completed Duration : 30; VACCINE_ IND: no; Not Available Not Available Not Available Clindesse 2 % vaginal cream,ext ended release INSERT 1 APPLICAT OR VAGINALL Y 1 DOSE 07/27 completed Duration : 1; VACCINE_ IND: no; Not Available Not Available Not Available loratadin e 10 mg Quantity : 30; Duration : 30; 3 refill(s ) 05/28 completed Frequenc y: qd; Duration : 30; VACCINE_ IND: no; SU_FULL_ NAME: Yary Self l; Not Available Not Available Not Available cholecalc iferol (vitamin D3) 1,250 mcg (50,000 unit) capsule TAKE 1 CAPSULE BY MOUTH EVERY WEEK active Not Available Not Available No t Available diclofena c 1 % topical gel PLEASE SEE ATTACHED FOR DETAILED DIRECTIO NS active Not Available Not Available No t Available Vitamin D3 50 mcg (2,000 unit) tablet TAKE 1 TABLET BY MOUTH EVERY DAY active Not Available Not Available No t Available Gavilax 17 gram/dose oral powder TAKE 17 GRAMS BY MOUTH DAILY active Not Available Not Available No t Available Vitamin D3 50 mcg (2,000 unit) capsule TAKE 1 CAPSULE BY MOUTH EVERY DAY active Not Available Not Available No t Available Linzess 145 mcg capsule 145 MCG Quantity : 30; Duration : 30; 0 refill(s ) 10/28 completed Duration : 30; VACCINE_ IND: no; Not Available Not Available Not Available Trulicity 1.5 mg/0.5 mL subcutane ous pen injector INJECT 0.5 ML SUBCUTAN EOUSLY ONE TIME PER WEEK active Not Available Not Available No t Available Flowflex COVID-19 Antigen Home Test kit Quantity : 8; Duration : 30; 0 refill(s ) 2022 active Duration : 30; VACCINE_ IND: no; Not Available Not Available Not Available Vitals None Recorded Social History None recorded. Functional Status None recorded. Mental Status None recorded. Family History Nothing Reported Notes:No known family histor y, Response Property: Yes; Medical History No medical history recorded. Gynecological HistoryNo gynecological history recorded. Obstetrics History GPAL:G 0 P 0 0 0 0 Past Encounters Encounter ID Performer Location Encounter Start Date Encounter Closed Date Diagnosis/Indication Diagnosis SNOMED-CT Code Diagnosis ICD10 Code Diagnosis Note [id number] Yary Melendez MD Main Office [address] [place] [phone] 05/18/2023 15:20:24 05/18/2023 15:26:49 Candidal vulvovaginitis [id number] B37.31 stablehx recurrence especially when sexually active.she will call if needs refill of antifungal cream or if develops genital discharge. aware of preP availablit y.no refills needed [facility] rveiewed [id number] Yary Melendez MD Main Office [address] [place] [phone] 11/14/2023 09:24:46 11/14/2023 12:06:38 Candidal vulvovaginitis [id number] B37.31 stablehx recurrence especially when sexually active.on qw fluconazol e for suppressio nshe will call if needs refill of antifungal cream or if develops genital vaginal discharge. aware of preP availablit y.no refills needed at [facility] reviewed [id number] Yary Melendez MD Main Office [address] [place] [address] 05/15/2024 09:48:34 05/15/2024 10:45:17 Candidal vulvovaginitis [id number] B37.31 stablehx recurrence especially when sexually active.on qw fluconazol e for suppressio nshe will call if needs refill of antifungal cream or if develops genital vaginal discharge. aware of preP availablit y and DOXYPEPwil l obtain labs drawn at [facility] reviewed Health Concerns Section Related Observation LastModified by Organization Detai ls LastModified Time None Recorded Concern Status LastModified by Organization Details LastModified Time None Recorded Advance Directives Directive None Recorded Payers Insurance Date Sequence Insurance Name Policy Number Policy Lindo Covered Member ID Lindo Member ID Guarantor Name 05/14/2024 1 [facility] (MEDICAID HMO) YOSHI Lopez [id number] Marianelamatt Shaikh Lopez Notes Date Note Type Note Provider Name and Address Organization Details Recorded Time 4 text/html marvin vulvovaginitislast seen 2022no new infectionshas not needed antifungal meds.no other infectionsunderwent recently panniculectomy last monthno need for refillsshe thinks she is better with no infection relapse due to not being sexually active.no BV sx.no rash Yary Melendez MD [address] [place] [address], [phone], DONOVAN MELENDEZ MD [facility] 05/18/2023 15:25:30 4 text/html marvin vulvovaginitisno new infections while on suppression tx which she is using qw.no other infectionsno need for refillsshe thinks she is better with no infection relapse due to decreased sexually active, and the suppression tx. mild sx when sexually active, but overall no flareups.no BV sx.no rashno fevermed list rveiewed. Yary Melendez MD [address] [place] [address], [phone], DONOVAN MELENDEZ MD [facility] 11/14/2023 12:06:13 5 text/html marvin vulvovaginitison fluconazole qw for suppressionno new infections while on suppression txno other infectionsno discharge. no rash.no abd pain;no dysuriano BV sx.no rashno fevermed list reviewed. Yary Melendez MD [address] [place] [address], [phone], DONOVAN MELENDEZ MD [facility] 05/15/2024 11:43:12 OBGyn Episode No OBEpisode recorded.
== END 2024-08-28 16:20 | disposition home or self-care (01) ==
LOC: HO.HGI 15:44
PROVIDERS: PCP Internal Medicine; Visit Provider Nurse Practitioner Family
DX: K21.9 Gastro-esophageal reflux disease without esophagitis (principal); K76.0 Fatty (change of) liver, not elsewhere classified; K59.01 Slow transit constipation; R19.8 Other specified symptoms and signs involving the digestive system and abdomen; R10.84 Generalized abdominal pain; R10.33 Periumbilical pain
CPT/HCPCS: 99214

== ENCOUNTER → 2024-08-28 15:44 | Outpatient (BNVA) | payer OTHER, SELFPAY | PROVIDERS: PCP Internal Medicine; Visit Provider Nurse Practitioner Family | DX: R10.84 Generalized abdominal pain (principal); R10.33 Periumbilical pain; K21.9 Gastro-esophageal reflux disease without esophagitis; K76.0 Fatty (change of) liver, not elsewhere classified; K59.01 Slow transit constipation; R19.8 Other specified symptoms and signs involving the digestive system and abdomen; Z79.899 Other long term (current) drug therapy | CPT/HCPCS: 99212 ==

== ENCOUNTER 2024-09-09 09:53 | Outpatient (AMB) | payer OTHER, SELFPAY ==
[2024-09-09 09:57] VITALS: BP 128/70; PULSE 60; O2SAT 99; BMI 29.2
--- NOTE | 2024-09-09 09:57 | A.OFFPC_ITS ---
Vital Signs 09/09/24 09:57 Height 5 ft 3 in Weight 165 lb BMI 29.2 BP 128/70 Blood Pressure Location Lt brachial Position Sitting Pulse 60 Pulse Source Pulse Oximeter Pulse Oximetry (%) 99 Oxygen Delivery Method Room Air Intake Visit Reasons: 6 month f/u Clinical Exercise Specialist Required: No Accompanied by: Self / Same As Patient Allergies gabapentin Adverse Reaction (Mild, Verified 12/10/24 08:25) drowsiness Medication List - Last Reconciled 09/09/24 by Tez Clifford MD [ANKLE BRACE (bilateral) As directed] calcium carbonate (Riky-Gest Antacid) mg PO cholecalciferol (vitamin D3) (Vitamin D3) 50 mcg PO DAILY cyanocobalamin (vitamin B-12) 1,000 mcg (2 x 500 mcg) PO DAILY 90 days cyclobenzaprine 5 mg PO TID PRN diclofenac sodium 1% (Voltaren Arthritis Pain) 4 grams topical QID PRN diclofenac sodium 75 mg PO BID PRN esomeprazole magnesium (Nexium) 40 mg PO DAILY famotidine 20 mg PO BID 90 days fluoxetine 10 mg PO DAILY 90 days hydroxyzine HCl 25 mg PO TID PRN ibuprofen 600 mg PO Q6H PRN levothyroxine 175 mcg PO DAILY [ORTHOTIC SUPPORT ANKLET for PLANTAR FASCIITIS As directed] simethicone (Gas Relief (simethicone)) 125 mg PO TID-QID PRN Tobacco use date assessed: 09/09/24 Dental Screening Dental Screen Date: 09/09/24 Did you have a dental visit in the last 12 months?: Yes Did you have a dental problem in the last 6 months where you did not have access to dental care?: No Was dental information given to patient?: Patient has dentist HPI 6 month f/u HPI Details Patient comes in today for her follow up visit States that she has been experiencing recurrent epigastric and periumbilical pain for the past few months Notes that her abdominal symptoms seem to feel worse and appear to be triggered when she eats something States that drinking water does not seem to bother her stomach as much She was seen by GI for this issue about 1 to 2 weeks ago and was started on Famotidine 20 mg BID in addition to her usual Rx of Esomeprazole 40 mg QD but patient states that the Rx has not helped so far She denies any nausea or vomiting and states that she has no change in her bowel habits lately She denies any headaches or dizziness Denies any chest pains, no increased SOB She would like to know how her labs done back in April 2024 came out [facility] Medical History Overweight (BMI 25.0-29.9) Cervical disc disease Lumbar spondylosis Anxiety Vitamin D deficiency Vitamin B12 deficiency Constipation Abnormal ultrasound of breast H/O radioactive iodine thyroid ablation (~2008) Depression Insomnia Thoracic vertebral fracture Patellofemoral arthritis GERD (gastroesophageal reflux disease) Acquired hypothyroidism Fibromyalgia Surgical History History of esophagogastroduodenoscopy (EGD) Hx of colonoscopy H/O hand surgery S/P hysterectomy S/P laparoscopic sleeve gastrectomy (~03/16/17) History of arthroscopy of left shoulder (~09/2016) History of arthroscopy of right shoulder (~08/2015) H/O thyroidectomy (~2008) Family History Father Cerebrovascular accident (CVA) Mother Diabetes Hypertension Social History Housing: House Alcohol intake: never Patient Tobacco Use Status: Never used Tobacco e-Cigarette/Vaping Use: Never Used Second Hand Smoke Exposure: Yes service: No Current occupational status: disabled Cognitive needs: No Hearing needs: No Vision needs: Yes Female Reproductive History Menstrual Age of Menarche: 10 Questionnaire PHQ-9 Over the last 2 weeks, how often have you been bothered by any of the following problems? 1. Little interest or pleasure in doing things: several days 2. Feeling down, depressed, or hopeless: more than half the days 3. Trouble falling or staying asleep, or sleeping too much: several days 4. Feeling tired or having little energy: nearly every day 5. Poor appetite or overeating: more than half the days 6. Feeling bad about yourself - or that you are a failure or have let yourself or your family down: more than half the days 7. Trouble concentrating on things, such as reading the newspaper or watching television: more than half the days 8. Moving or speaking so slowly that other people could have noticed. Or the opposite - being so fidgety or restless that you have been moving around a lot more than usual: several days 9. Thoughts that you would be better off or of hurting yourself in some way: not at all Total score: 14 Depression Screening Interpretation: Positive Depression Screening Follow-up: Existing condition and In treatment Depression Screening Done: Yes 91226 - PHQ-9 Billing: Yes Source: Developed by Drs. Nicolas Martin, Marcelle Wood, Dom gutierrez nd colleagues, with an educational gaby from [employer]. Thrive Questionnaire Date Thrive assessed: 09/09/24 I am a: Patient What is your living situation today?: I have a steady place to live Within the past 12 months, did the food you bought not last and you didn't have the money to get more?: Often true Within the past 12 months, did you worry whether your food would run out before you got money to buy more?: Often true Do you have trouble paying for medicines?: No Do you have trouble getting transportation to medical appointments?: No Do you have trouble paying your heating and electricity bill?: Yes Do you have trouble taking care of your child, family member or friend?: Yes Do you have trouble with day-to-day activities such as bathing, preparing meals, shopping, managing finances, etc.?: I choose not to answer this question Are you currently unemployed and looking for a job?: I choose not to answer this question Are you interested in more education?: No Please select the resources that you would like help with: None Currently or been in a relationship where the following occur: I choose not to answer THRIVE Score: 3 AUDIT C Alcohol Use Questionnaire (AUDIT-C) 1. How often do you have a drink containing alcohol?: Never 3. How often do you have six or more drinks on one occasion?: Never Total Score: 0 Score Reviewed/Action Taken: Yes MAYTE-7 AMB Questionnaire MAYTE-7 Date MAYTE - 7 assessed: 09/09/24 Feeling nervous, anxious, or on edge: 1 = Several days Not being able to stop or control worryin = Several days Worrying too much about different things: 1 = Several days Trouble relaxin = Several days Being so restless that it is hard to sit still: 1 = Several days Becoming easily annoyed or irritable: 1 = Several days Feeling afraid as if something awful might happen: 1 = Several days Total MAYTE-7 score (0-4 normal; 5-9 mild; 10-14 moderate; 15-21 severe): 7 Source: Developed by Drs. Nicolas Martin, Marcelle Wood, Dom Lepe and colleagues, with an educational gaby from [employer]. Review of Systems Const Denies chills, Denies fatigue, Denies fever(s) and Denies headache(s) ENT Denies dysphagia, Denies dizziness, Denies otalgia, Denies headache(s), Reports neck pain (chronic), Denies odynophagia and Denies sore throat Card Denies chest pain, Denies rapid heart rate, Denies irregular heart rhythm, Denies palpitations and Denies dyspnea Resp Denies chest congestion, Denies cough and Denies dyspnea GI Reports abdominal pain (recurrent - see HPI), Denies constipation, Denies dysphagia, Denies heartburn, Denies diarrhea, Denies nausea, Denies odynophagia and Denies vomiting Denies urinary frequency, Denies dysuria and Denies urinary urgency Musc Reports back pain (chronic), Reports arthralgias (recurrent over both ankles - see HPI) and Reports neck pain (chronic) Skin/Breast Denies rash Neuro Reports burning sensations (over the bottom (soles) of both feet - feel worse at night), Denies dizziness and Denies headache(s) Psych Reports anxiety and Reports depression Endo Denies fatigue and Denies palpitations Robin/Lymph Denies easy bruising Physical exam (Primary Care) Vital Signs: Last Vital Signs Pulse 60 09/09/24 09:57 BP 128/70 09/09/24 09:57 Pulse Ox 99 09/09/24 09:57 Oxygen Delivery Method Room Air 09/09/24 09:57 BMI result Body Mass Index 29.2 Tobacco/Smoking Status: Tobacco use Status Tobacco use date assessed 09/09/24 09/09/24 10:07 Patient Tobacco Use Status Never used Tobacco 09/09/24 10:07 e-Cigarette/Vaping Use Never Used 09/09/24 10:07 PHQ-9: PHQ-9 Score PHQ-9: Total score 14 07/28/25 17:47 Depression Screening Interpretation: Positive Depression Screening Follow-up: Existing condition and In treatment Thrive Assessment: Date of Thrive Assessment Date Thrive assessed 09/09/24 09/09/24 10:07 Currently or been in a relationship where the following occur: I choose not to answer Const General: no acute distress and alert HENMT Ears: TM's normal bilaterally and EAC's normal Throat: Yes posterior oropharynx normal and Yes tonsils normal (no TP congestion) Neck Neck: Yes supple and No lymphadenopathy Thyroid: Thyroid normal Resp Auscultation: clear to auscultation bilaterally, no rales and no wheezes Cardio Rate: regular rate Rhythm: regular rhythm Heart sounds: no murmurs GI Palpation (GI): Soft to palpation, nontender and no guarding Auscultation: normal bowel sounds General: Yes no CVA tenderness Back/Spine/Pelvis Back: no CVA tenderness Cervical Spine: Cervical spine tenderness Thoracic/Lumbar Spine: thoracic spinal tenderness (over the lower thoracic spine) and lumbar spinal tenderness Skin Rashes: no rashes Extrem General: Yes no clubbing, cyanosis or edema Right lower extremity: ankle Details: tenderness; no swelling Left lower extremity: ankle Details: tenderness; no swelling Results Reviewed Results Reviewed: Laboratory Tests 04/16/24 04/16/24 09:12 09:15 WBC 6.0 Hgb 12.9 Hct 38.6 Plt Count 247 ESR 14 Sodium 142 Potassium 3.7 Creatinine 0.65 Estimated GFR > 60 Fasting Glucose 86 Uric Acid 3.3 AST 13 ALT 16 Triglycerides 37 Cholesterol 163 LDL Cholesterol, Calc 64 HDL Cholesterol 92 Vitamin B12 248 25-OH Vitamin D Total 26.7 L TSH 0.03 L Free T4 1.29 Ur Specific [place] >= 1.030 H Urine Protein Negative Urine Glucose (UA) Negative Urine Blood Negative Urine Nitrite Negative Ur Leukocyte Esterase Negative Coding Level of Care Code Est Pt Level 4 (31908) Diagnoses Generalized abdominal pain R10.84 Abdominal location: generalized Acquired hypothyroidism E03.9 Fibromyalgia M79.7 Slow transit constipation K59.01 Constipation type: slow transit constipation Vitamin D deficiency E55.9 Vitamin B12 deficiency E53.8 Lumbar spondylosis M47.816 Cervical disc disease M50.90 Peripheral polyneuropathy G62.9 Peripheral neuropathy type: polyneuropathy, unspecified Primary insomnia F51.01 Insomnia type: primary Anxiety F41.9 Episode of recurrent major depressive disorder, unspecified depression episode severity F33.9 Active/Remission status: currently active Depression Type: major depressive disorder Major depression episode severity: unspecified Major depression recurrence: recurrent Overweight (BMI 25.0-29.9) E66.3 Additional Codes PHQ-9 - 83391 - PHQ-9 Billing: Yes ([id number]) Assessment & Plan Assessment & Plan (1) Abdominal pain: Code(s): R10.9 - Unspecified abdominal pain Category: Medical Qualifiers: Abdominal location: generalized Qualified Code(s): R10.84 - Generalized abdominal pain Plan: Patient c/o pain mostly over the epigastric and periumbilical areas and often when she eats something Considering her Hx of gastric sleeve surgery, this is concerning for potential gastritis or gastric erosions, especially at the area of anastomosis She has been seen by GI and was started additionally on Famotidine, which patient states has not really helped so far Continue Esomeprazole 40 mg QD She will be seeing GI again for follow up and further evaluation later this week and will likely need repeat EGD at some point for further evaluation Reinforced dietary restrictions in the meantime (2) Acquired hypothyroidism: Code(s): E03.9 - Hypothyroidism, unspecified Category: Medical Plan: Patient is clinically euthyroid at present Her TFTs back in April 2024 came out normal Continue Levthyroxine 175 mg QD Will recheck her TFTs and labs in 6 months for follow up (3) Fibromyalgia: Code(s): M79.7 - Fibromyalgia Category: Medical Plan: Patient is encouraged again on regular exercise and physical activity to help manage her fibromyalgia symptoms She was on Pregabalin 75 mg BID, Duloxetine 30 mg QD and Amitriptyline 25 mg Q HS in the past but she stopped taking all of these at some point States that she now only takes Diclofenac 75 mg BID PRN for pain - she does not wish to keep taking a lot of meds if she can avoid them Have cautioned patient that due to her history of gastric sleeve surgery, she should be careful about taking NSAIDs in general as even though her risks may not be as high as someone who's had gastric bypass surgery, NSAIDs can still increase her risk of anastomotic ulcerations and perforations if taken too much or too often Have advised her to try taking OTC Tylenol first and if they do not adequately help with her pain, then she can take Diclofenac but only with food and as needed (4) Constipation: Code(s): K59.00 - Constipation, unspecified Category: Medical Qualifiers: Constipation type: slow transit constipation Qualified Code(s): K59.01 - Slow transit constipation Plan: Patient is again encouraged on increased oral fluids and dietary fiber intake She was on Linzess 145 mcg QD in the past but is now only taking OTC Docusate 100 mg Q HS PRN, Senna 8.6 mg 2 tabs Q HS PRN and Citrucel 600 mg QD Her colonoscopy done back in 05/2022 came out normal Follow up with GI as scheduled (5) Vitamin D deficiency: Code(s): E55.9 - Vitamin D deficiency, unspecified Category: Medical Plan: Continue Vitamin D2 13247 units once a week (6) Vitamin B12 deficiency: Comment: S/P bariatric surgery Code(s): E53.8 - Deficiency of other specified B group vitamins Category: Medical Plan: Continue Vitamin B12 1000 mcg QD (7) Lumbar spondylosis: Code(s): M47.816 - Spondylosis without myelopathy or radiculopathy, lumbar region Category: Medical Plan: Her lumbar spine x-rays last done in 2015 revealed (+) lumbar spondylosis Reinforced activity and weight-lifting restrictions Follow up with [facility] as scheduled (8) Cervical disc disease: Code(s): M50.90 - Cervical disc disorder, unspecified, unspecified cervical region Category: Medical Plan: She still has occasional right-sided cervical radicular symptoms; states that her symptoms are otherwise mostly manageable Follow up with [facility] as scheduled (9) Peripheral neuropathy: Code(s): G62.9 - Polyneuropathy, unspecified Category: Medical Qualifiers: Peripheral neuropathy type: polyneuropathy, unspecified Qualified Code(s): G62.9 - Polyneuropathy, unspecified Plan: EMG and NCV of both lower extremities done back in April 2024 revealed (+) bilateral superficial peroneal sensory neuropathy. Otherwise, no significant abnormality noted (10) Insomnia: Code(s): G47.00 - Insomnia, unspecified Category: Medical Qualifiers: Insomnia type: primary Qualified Code(s): F51.01 - Primary insomnia Plan: Sleep hygiene reinforced She used to take Trazodone 50 mg Q HS but is currently not on any sleep aid and does not wish to take anything else at this time as she feels that she is sleeping well enough lately (11) Anxiety: Code(s): F41.9 - Anxiety disorder, unspecified Category: Medical Plan: Continue Hydroxyzine 25 mg TID PRN (12) Depression: Code(s): F32.9 - Major depressive disorder, single episode, unspecified Category: Medical Qualifiers: Active/Remission status: currently active Depression Type: major depressive disorder Major depression episode severity: unspecified Major depression recurrence: recurrent Qualified Code(s): F33.9 - Major depressive disorder, recurrent, unspecified Plan: Continue Fluoxetine 10 mg QD (13) Overweight (BMI 25.0-29.9): Comment: S/P bariatric surgery Code(s): E66.3 - Overweight Category: Medical Plan: Reinforced diet/exercise as tolerated/lose weight Due to her history of gastric sleeve surgery, have cautioned patient against taking NSAIDs frequently in general and if she really needs to, to do so only with food and as needed Plan To return in 6 months for her next annual physical examination Orders: Orders Complete Blood Count Auto Diff 6 Months D64.9 - Anemia, unspecified, Z00.00 - Encounter for general adult medical examination without abnormal findings, Z98.84 - Bariatric surgery status Comprehensive Liberal. Panel Fast 6 Months E78.00 - Pure hypercholesterolemia, unspecified, Z00.00 - Encounter for general adult medical examination without abnormal findings, Z98.84 - Bariatric surgery status Lipid Panel 6 Months E78.00 - Pure hypercholesterolemia, unspecified, Z00.00 - Encounter for general adult medical examination without abnormal findings, Z98.84 - Bariatric surgery status UA CC w/rflx Micro + Cult 6 Months R30.0 - Dysuria, Z00.00 - Encounter for general adult medical examination without abnormal findings, Z98.84 - Bariatric surgery status Vitamin D 25-OH Total 6 Months E55.9 - Vitamin D deficiency, unspecified, Z00.00 - Encounter for general adult medical examination without abnormal findings, Z98.84 - Bariatric surgery status TSH reflex Free T4 6 Months E78.00 - Pure hypercholesterolemia, unspecified, Z00.00 - Encounter for general adult medical examination without abnormal findings, Z98.84 - Bariatric surgery status Vitamin B12 and Folate 6 Months E53.8 - Deficiency of other specified B group vitamins, Z00.00 - Encounter for general adult medical examination without abnormal findings, Z98.84 - Bariatric surgery status
--- OUTSIDE RECORDS SUMMARY | 2024-09-09 10:54 | XMS_ITS | Clinical Summary ---
Author Organization [facility] Address [address] [id number] Phone Care Team Providers Care Consignee Name Role Phone Tez Clifford MD Primary Care Provider [phone] Allergies No known active allergies Medications cholecalciferol , vitamin D3, (VITAMIN D3) 10 mcg (400 unit) capsule Take by mouth. 3 Active diclofenac sodium (VOLTAREN) 75 MG EC tablet Take 75 mg by mouth. 3 Active levothyroxine (SYNTHROID, LEVOTHROID) 175 MCG tablet TAKE 1 TABLET BY MOUTH MONDAY THROUGH MONDAY, THEN 1/2 TABLET BY MOUTH EVERY MONDAY AND MONDAY Active cyanocobalamin, vitamin B-12, (VITAMIN B-12) 2,500 mcg sublingual tablet 0 Refills, Maintenance, 08/03/22 16:44:00 EDT, Partial fill upon patient request if the prescription is for a schedule II opioid drug. 3 Active ondansetron (ZOFRAN) 4 MG tablet Take 1 tablet (4 mg total) by mouth every 8 (eight) hours as needed for nausea. 30 tablet 2 4 Active docusate sodium (COLACE) 100 MG capsule take 1 capsule by mouth every day 30 capsule 4 Active oxyCODONE-aceta minophen (PERCOCET) 5-325 mg per tablet Take 1-2 tablets by mouth every 4 (four) hours as needed for pain (specific location in comments). Take 1-2 tabs every 4 hours as needed for severe pain. 30 tablet 4 Active Active Problems Problem Noted Date Diagnosed Date Pannus, abdominal 02/15/2023 Intertrigo 02/15/2023 Social History Tobacco Use Types Packs/Day Years Used Date Smoking Tobacco: Never Smokeless Tobacco: Never Tobacco Cessation:Counseling Given: Not Answered Alcohol Use Standard Drinks/Week Comments Never 0 (1 standard drink = 0.6 oz pur e alcohol) Education Answer Date Recorded Are you interested in more education? Not on salvador e 11/22/2022 Are you concerned about learning? Not on file 11/22/2022 No 11/22/2022 No 11/22/2022 Digital Access Answer Date Recorded No 11/22/2022 No 11/22/2022 Reliable internet access at home? Not on file 11/22/2022 Device with a working camera? Not on file Intimate Partner Violence Answer Date R ecorded Are you denied basic needs s uch as food, clothing, or medical care? No 05/04/2023 In the past 12 months have y ou been in a relationship with a person who hurts, threatens, or tries to control you? No 05/04/2023 Are you denied basic needs s uch as food, clothing, or medical care? No 05/04/2023 In the past 12 months have y ou been in a relationship with a person who hurts, threatens, or tries to control you? No 05/04/2023 Comments No Sex and Gender Information Value Date Recorded Sex Assigned at Not on file Legal Sex Female 9:26 PM EDT Gender Identity Not on file Sexual Orientation Not on file Last Filed Vital Signs Vital Sign Reading Time Taken Comments Blood Pressure 127/79 07/28/2023 9:29 AM EDT Pulse 64 07/28/2023 9:29 AM EDT Temperature 36.4 C (97.5 F) 05/04/2023 4:45 PM EDT Respiratory Rate 16 05/04/2023 4:45 PM EDT Oxygen Saturation 97% 05/04/2023 4:45 PM EDT Inhaled Oxygen Concentration - - Weight 79.3 kg (174 lb 12.8 oz) 07/28/2023 9:29 AM EDT Height 162.6 cm (5' 4 ) 05/04/2023 10:2 5 AM EDT Body Mass Index 30 05/04/2023 10:25 AM EDT Plan of Treatment Health Maintenance Due Date Last Done Comments Adult Td,Tdap Booster 1976 LIPID PANEL 1976 TSH LEVEL 1976 DEPRESSION SCREENING 1988 HEPATITIS C SCREENING 1994 HIV ONE-TIME SCREENING (18-6 5 YEARS) 1994 PAP SMEAR 1997 SCREENING FOR DIABETES 07/02/2011 MAMMOGRAM 2016 COLOGUARD 2021 COLONOSCOPY 2021 COLORECTAL CANCER SCREENING 2021 FIT TEST 2021 FOBT 2021 SIGMOIDOSCOPY 2021 VIRTUAL COLONOSCOPY 2021 COVID-19 VACCINE ( - 2023-2 5 season) 2023 SMOKING STATUS SCREENING (On ce After 26 Yrs) Completed 05/04/2023 HEPATITIS A VACCINES Aged Out No long er eligible based on patient's age to complete this topic HIB VACCINES Aged Out No longer eligi ble based on patient's age to complete this topic MENINGOCOCCAL VACCINES (ACWY) Aged Out No longer eligible based on patient's age to complete this topic MENINGOCOCCAL VACCINES (B) Aged Out N o longer eligible based on patient's age to complete this topic PNEUMOCOCCAL VACCINES (0-49 years) Aged Out No longer eligible based on patient's age to complete this topic Medical Devices Implanted Type Area Purchasing Department Clerk Device Identifier Shelf Expiration Date Model / Serial / Lot Stimulator Stimulator Right: Buttocks Insurance ACO ACO ACO ACO ACO ACO Advance Directives For more information, please contact: [phone] (9AM - 5PM [place], Monday-Monday) * Full Code (Latest Code Status on File) Date Activated Date Inactivated Comments 05/04/2023 10:46 AM Question Answer Comments Code Status Confirmed With: Patient Care Teams Consignee Relationship Specialty Start Date End Date Tez Clifford MD [address] [place] [address] [place] [address] PCP - General Internal Medicine 11/22/22 Additional Source Comments The information contained in this document represents components of the legal health record. It is not the complete legal health record.[facility]
--- OUTSIDE RECORDS SUMMARY | 2024-09-09 10:54 | XMS_ITS | Clinical Summary ---
Author Organization [address] [place] [address] [place] [phone] Phone Care Team Providers Care Delivery Nurse Name Role Phone Tez Clifford MD Primary [...] Description 07/15/2024 Telephone Obstetrics & Gynecology - [address] [phone] Brigida Sanford CNM menopausal from Last 3 Months Immunizations Name Administration Dates Next Due Hepatitis A-Hepatitis B Adul t (Twinrix) 18yo and older 08/24/2011,03/25/2011,02/23/2011 Hepatitis B (Gknetiv-W-Iibue , Recombivax HB-Adult) 19yo and older 02/27/2017,12/26/2016 Tdap Tetanus diptheria acell ular pertussis (Boostrix; Adacel) 7yo and older 09/18/2013 Surgical History Surgery Date Site/Laterality Comments SECTION PROCEDURE: HISTORICAL DELIVERY; COMMENT: x3 OTHER SURGICAL HISTORY 11/2017 Bilateral PROCEDURE: [place] LIG/TRNSXJ FLP TUBE ABDL/VAG APPR UNI/BI; COMMENT: Essure removal APPENDECTOMY PROCEDURE: [place] APPENDECTOMY OTHER SURGICAL HISTORY PROCEDURE: ARTHROSCOPY PROCEDURE NEC SHOULDER ARTHROSCOPY 09/2016 Left PROCEDURE: [place] SURGICAL ARTHROSCOPY SHOULDER W/LSS&RESCJ ADS; COMMENT: right 09/2016 STOMACH SURGERY 03/2017 PROCEDURE: [place] UNLISTED PROCEDURE STOMACH; COMMENT: gastric sleeve [facility] THYROIDECTOMY 2005 Bilateral PROCEDURE: HISTORICAL TOTAL THYROIDECTOMY OTHER SURGICAL HISTORY 2016 Right PROCEDURE: NERVE STIMULATOR FOR [place] GASTRIC BYPASS PROCEDURE: GASTRIC BYPASS FOR OBESIT HYSTERECTOMY 11/2019 PROCEDURE: HISTORICAL HYSTERECTOMY; COMMENT: Robotic TLH BREAST BIOPSY 04/2020 Left PROCEDURE: [place] BIOPSY BREAST OPEN INCISIONAL; COMMENT: @ [facility] Ctr-benign fibocystic changes Medical History Medical History [...] 11/24/2015 DX:Dyspare unia in female Thyroid cancer ([facility]/HCC V24, [facility]/HCC V28) 2004 DX:Thyroid cancer (HCC) Blood type, [...] CS-Un spec Epidur al Livin g Delivery Location:[place] 2007 SAB 20w 0d Comments:cerclage infe ction 2008 Term 40w 0d 3827 g (135 oz) F CS-LT ranv Spinal Livin g [address] Selma liang Complications:None Delivery Location:[facility] 2013 Term 37w 0d 2580 g (91 oz) F CS-Un spec Epidur al Livin g [address] Selma liang Delivery Location:[facility] Last Filed Vital Signs Vital Sign [...] Tdap) 09/19/2023 09/18/2013 Influenza Vaccine (#1) 2024 Breast Cancer Screening 10/03/2025 10/04/2023 Hepatitis A Vaccines Aged Out 08/24/2011, 03/25/2011, 02/23/2011 No longer eligible based on patient's age to complete this topic Hepatitis B Vaccines Completed 02/27/2017, 12/26/2016, 08/24/2011, Additional history exists HIV Screening Completed 06/29/2020 Hepatitis C Screening Completed 06/29/2020 Depression Screening Completed 04/07/2024 HIB Vaccines Aged Out No longer eligi [...] Anatomical Region Laterality Modality Breast Bilateral Mammography [facility] Provider IMG BI PROCEDURES Final R esult * HIV Screening (06/29/2020) HIV Screening abstracted [facility] Provider HEALTH MAINTENANCE Final Result * Hepatitis C Screening (06/29/2020) Hepatitis C Screening abstracted [facility] Provider HEALTH MAINTENANCE Final Result * Cervical Cancer Screening: HPV (04/20/2016) Cervical Cancer Screening: HPV abstracted, negative [facility] Provider HEALTH MAINTENANCE Final Result from Last 3 Months or Most Recently Relevant to Health Maintenance Insurance [facility] [employer] Care Teams Delivery Nurse Relationship Specialty Start Date End Date Tez Clifford MD [address] [place] [address] [address] [place] PCP - General 11/17/09
--- OUTSIDE RECORDS SUMMARY | 2024-09-09 10:55 | XMS_ITS | Data Portability ---
Author Organization DONOVAN PERALTA MD [facility], Main Office Address [address] [place] [address] Assessment Encounter Date Assessment Date Assessment LastModified [...] Orders fluconazole 100 mg tablet 2024 025 [facility] #[id number], [address] [place], [address], 5 10:12:43 fluconazole 100 mg tablet 2023 024 [facility] #[id number], [address] [place], [address], 4 12:03:18 Patient TargetsNo targets recorded. Patient InstructionsNo instructions recorded. Reason for Referral None Reported. Problems Name Problem SNOMED Code Status Onset Date Resolution Date Notes Provider Name and Address Organization Details Recorded Time Herpesviru s infection 25224859 Active 2016 Herpesvira l infection, unspecifie d; snomeddesc ription: Herpes simplex; Report Immunity to Registry: Yes; Notes: HSV 1 pos serology; HSV 2 neg; Not Available [facility] 4 06:59:39 Herpes simplex 85192026 Active 2016 Herpes simplex; snomeddesc ription: Herpes simplex; Report Immunity to Registry: Yes; Notes: HSV 1 pos serology; HSV 2 neg; Not Available [facility] 4 06:59:39 Candidiasi s of vagina 85893880 Active 2016 Candidiasi s of vagina; snomeddesc ription: Candidiasi s of vagina; Report Immunity to Registry: Yes; Notes: IVELISSE ALBICANS /DUBLINIEN SIS 06/2016; Candidias is of vulva and vagina; snomeddesc ription: Candidiasi s of vagina; Report Immunity to Registry: Yes; Notes: IVELISSE ALBICANS /DUBLINIEN SIS 06/2016; Not Available [facility] 4 06:59:39 Problem Notes None recorded. Medical [...] 30; VACCINE_ IND: no; SU_FULL_ NAME: Yary eSlf l; Not Available Not Available Not Available [...] SNOMED-CT Code Diagnosis ICD10 Code Diagnosis Note [id number] Yary Melendez MD Main Office [address] [place] [phone] 05/18/2023 15:20:24 05/18/2023 15:26:49 Candidal vulvovaginitis 35996675 B37.31 stablehx recurrence especially when sexually active.she will call if needs refill of antifungal cream or if develops genital discharge. aware of preP availablit y.no refills needed at current [facility] rveiewed [id number] Yary Melendez MD Main Office [address] [place] [phone] 11/14/2023 09:24:46 11/14/2023 12:06:38 Candidal vulvovaginitis [id number] B37.31 stablehx recurrence especially when sexually active.on qw fluconazol e for suppressio nshe will call if needs refill of antifungal cream or if develops genital vaginal discharge. aware of preP availablit y.no refills needed at current [facility] reviewed [id number] Yary Melendez MD Main Office [address] [place] [address] 05/15/2024 09:48:34 05/15/2024 10:45:17 Candidal vulvovaginitis [id number] B37.31 stablehx recurrence especially when sexually active.on qw fluconazol e for suppressio nshe will call if needs refill of antifungal cream or if develops genital vaginal discharge. aware of preP availablit y and DOXYPEPwil l obtain labs drawn at [facility] reviewed Health Concerns Section Related Observation LastModified by Organization Detai ls LastModified Time None Recorded Concern Status LastModified by Organization Details LastModified Time None Recorded Advance Directives Directive None Recorded Payers Insurance Date Sequence Insurance Name Policy Number Policy Lindo Covered Member ID Lindo Member ID Guarantor Name 05/14/2024 1 [facility] (MEDICAID HMO) YOSHI Lopez [id number] Marianela Lopez OBGyn Episode No OBEpisode recorded.
== END 2024-09-09 10:44 | disposition home or self-care (01) ==
LOC: HO.HMCH 09:54
PROVIDERS: PCP Internal Medicine; Visit Provider Internal Medicine
DX: R10.84 Generalized abdominal pain (principal); E03.9 Hypothyroidism, unspecified; M79.7 Fibromyalgia; K59.01 Slow transit constipation; E55.9 Vitamin D deficiency, unspecified; E53.8 Deficiency of other specified B group vitamins; M47.816 Spondylosis without myelopathy or radiculopathy, lumbar region; M50.90 Cervical disc disorder, unspecified, unspecified cervical region; G62.9 Polyneuropathy, unspecified; F51.01 Primary insomnia; F41.9 Anxiety disorder, unspecified; F33.9 Major depressive disorder, recurrent, unspecified; E66.3 Overweight

== ENCOUNTER → 2024-09-09 09:53 | Outpatient (BNVA) | payer OTHER, SELFPAY | PROVIDERS: PCP Internal Medicine; Visit Provider Internal Medicine | DX: R10.13 Epigastric pain (principal); R10.33 Periumbilical pain; R10.84 Generalized abdominal pain; E03.9 Hypothyroidism, unspecified; M79.7 Fibromyalgia; K59.01 Slow transit constipation; E55.9 Vitamin D deficiency, unspecified; E53.8 Deficiency of other specified B group vitamins; M47.816 Spondylosis without myelopathy or radiculopathy, lumbar region; M50.90 Cervical disc disorder, unspecified, unspecified cervical region; G62.9 Polyneuropathy, unspecified; F51.01 Primary insomnia; F41.9 Anxiety disorder, unspecified; F33.9 Major depressive disorder, recurrent, unspecified; E66.3 Overweight; Z68.29 Body mass index [BMI] 29.0-29.9, adult | CPT/HCPCS: 96127; 99212 ==

== ENCOUNTER 2024-09-13 09:19 | Outpatient (AMB) | payer OTHER, SELFPAY ==
--- NOTE | 2024-09-13 09:31 | AM.OFFVISNUR ---
Intake Visit Reasons: h pylori Allergies gabapentin Adverse Reaction (Mild, Verified 09/09/24 10:35) drowsiness Nursing Note Patient presents for collection of H Pylori breath test. Patient has been fasting for 1 hour (nothing to eat, drink, no chewing gum or smoking) has not taken any antacid medication for at least 2 weeks and has no allergies to artificial sweeteners.?? Assessment & Plan Assessment & Plan (1) GERD (gastroesophageal reflux disease): Code(s): K21.9 - Gastro-esophageal reflux disease without esophagitis Category: Medical Qualifiers: Esophagitis presence: esophagitis presence not specified Qualified Code(s): K21.9 - Gastro-esophageal reflux disease without esophagitis Plan Patient presents for collection of H Pylori breath test. Patient has been fasting for 1 hour (nothing to eat, drink, no chewing gum or smoking) has not taken any antacid medication for at least 2 weeks and has no allergies to artificial sweeteners.???This test checks for an overgrowth of bacteria in your stomach. We all have bacteria but some may have more than others. It is treatable. if the test comes back negative there is nothing else to do. If the test result is positive we will treat you with 2 antibiotics and a medication to decrease the acid in your stomach (PPI) for 2 weeks. Two weeks after you have completed the treatment we will retest you to make sure the overgrowth has resolved. Patient Instructions: Process for specimen collection and reason for testing was explained to the patient. Specimen collection. Patient instructed to take a deep breath and then exhale into the blue bag, filling it up as much as possible. Patient instructed to drink a mixture of water and the artificial sweetener with a straw. A 15 minute wait period was observed. Patient instructed to take a deep breath and then exhale into the pink bag, filling it up as much as possible. Coding Level of Care Code Established Pt Est Pt Level 1 (56023) Patient Type Established Medical Decision Making Straight Forward Diagnoses Gastroesophageal reflux disease, unspecified whether esophagitis present K21.9 Esophagitis presence: esophagitis presence not specified
--- OUTSIDE RECORDS SUMMARY | 2024-09-13 09:32 | XMS_ITS | Clinical Summary ---
Author Organization [facility] Address [address] [phone] Phone Care Team Providers Care Cash Specialist Name Role Phone Tez Clifford MD Primary Care Provider [phone] [phone] Allergies No known active allergies Medications cholecalciferol [...] this topic Medical Devices Implanted Type Area Novelty Worker Device Identifier Shelf Expiration Date Model / Serial / Lot Stimulator Stimulator Right: Buttocks Insurance ACO ACO ACO ACO ACO ACO Advance Directives For more information, please contact: [phone] (9AM - 5PM [place], Monday-Monday) * Full Code (Latest Code Status on File) Date Activated Date Inactivated Comments 05/04/2023 10:46 AM Question Answer Comments Code Status Confirmed With: Patient Care Teams Cash Specialist Relationship Specialty Start Date End Date Tez Clifford MD [address] [place] [address] [place] [address] PCP - General Internal Medicine 11/22/22 Additional Source Comments The information contained in this document represents components of the legal health record. It is not the complete legal health record.[facility]
--- OUTSIDE RECORDS SUMMARY | 2024-09-13 09:32 | XMS_ITS | Clinical Summary ---
Author Organization [address] [place] [address] [place] [phone] Phone Care Team Providers Care Mathematics Technician Name Role Phone Tez Clifford MD [...] Description 07/15/2024 Telephone Obstetrics & Gynecology - [address] [phone] Brigida Sanford CNM menopausal from Last 3 Months Immunizations Name Administration Dates Next Due Hepatitis A-Hepatitis B Adul t (Twinrix) 18yo and older 08/24/2011,03/25/2011,02/23/2011 Hepatitis B (Vnaqlwx-E-Ewaoz , Recombivax HB-Adult) 19yo and older 02/27/2017,12/26/2016 Tdap Tetanus diptheria acell ular pertussis (Boostrix; Adacel) 7yo and older 09/18/2013 Surgical History Surgery Date Site/Laterality Comments SECTION PROCEDURE: HISTORICAL DELIVERY; COMMENT: x3 OTHER SURGICAL HISTORY 11/2017 Bilateral PROCEDURE: [place] LIG/TRNSXJ FLP TUBE ABDL/VAG APPR UNI/BI; COMMENT: Essure removal APPENDECTOMY PROCEDURE: [place] APPENDECTOMY OTHER SURGICAL HISTORY PROCEDURE: ARTHROSCOPY PROCEDURE NEC SHOULDER ARTHROSCOPY 09/2016 Left PROCEDURE: [place] SURGICAL ARTHROSCOPY SHOULDER W/LSS&RESCJ ADS; COMMENT: right 09/2016 STOMACH SURGERY 03/2017 PROCEDURE: [place] UNLISTED PROCEDURE STOMACH; COMMENT: gastric sleeve [facility] THYROIDECTOMY 2005 Bilateral PROCEDURE: HISTORICAL TOTAL THYROIDECTOMY OTHER SURGICAL HISTORY 2016 Right PROCEDURE: NERVE STIMULATOR FOR [place] GASTRIC BYPASS PROCEDURE: GASTRIC BYPASS FOR OBESIT HYSTERECTOMY 11/2019 PROCEDURE: HISTORICAL HYSTERECTOMY; COMMENT: Robotic TLH BREAST BIOPSY 04/2020 Left PROCEDURE: [place] BIOPSY BREAST OPEN INCISIONAL; COMMENT: @ [facility] Ctr-benign fibocystic changes Medical History Medical History [...] 11/24/2015 DX:Dyspare unia in female Thyroid cancer ([facility]/HCC V24, [facility]/HCC V28) 2004 DX:Thyroid cancer (HCC) Blood [...] CS-Un spec Epidur al Livin g Delivery Location:[place] 2007 SAB 20w 0d Comments:cerclage infe ction 2008 Term 40w 0d 3827 g (135 oz) F CS-LT ranv Spinal Livin g [address] Selma liang Complications:None Delivery Location:[facility] 2013 Term 37w 0d 2580 g (91 oz) F CS-Un spec Epidur al Livin g [address] Selma liang Delivery Location:[facility] Last Filed Vital Signs Vital Sign [...] Anatomical Region Laterality Modality Breast Bilateral Mammography [facility] Provider IMG BI PROCEDURES Final R esult * HIV Screening (06/29/2020) HIV Screening abstracted [facility] Provider HEALTH MAINTENANCE Final Result * Hepatitis C Screening (06/29/2020) Hepatitis C Screening abstracted [facility] Provider HEALTH MAINTENANCE Final Result * Cervical Cancer Screening: HPV (04/20/2016) Cervical Cancer Screening: HPV abstracted, negative [facility] Provider HEALTH MAINTENANCE Final Result from Last 3 Months or Most Recently Relevant to Health Maintenance Insurance [facility] [employer] Care Teams Mathematics Technician Relationship Specialty Start Date End Date Tez Clifford MD [address] [place] [address] [address] [place] PCP - General 11/17/09
== END 2024-09-13 09:33 | disposition home or self-care (01) ==
LOC: HO.HGI 09:20
PROVIDERS: PCP Internal Medicine; Visit Provider Nurse Practitioner Family
DX: K21.9 Gastro-esophageal reflux disease without esophagitis (principal)

== ENCOUNTER → 2024-09-13 09:19 | Outpatient (BNVA) | payer OTHER, SELFPAY | PROVIDERS: PCP Internal Medicine; Visit Provider Nurse Practitioner Family | DX: K21.9 Gastro-esophageal reflux disease without esophagitis (principal) | CPT/HCPCS: 83013; 99211 ==

== ENCOUNTER 2024-09-13 09:46 | Outpatient (REF) | payer OTHER, SELFPAY ==
--- OUTSIDE RECORDS SUMMARY | 2024-09-16 11:38 | XMS_ITS | Clinical Summary ---
Author Organization [address] [place] [address] [place] [phone] Phone Care Team Providers Care Folder Machine Adjuster Name Role Phone Tez Clifford MD Primary [...] Description 07/15/2024 Telephone Obstetrics & Gynecology - [address] [phone] Brigida Sanford CNM menopausal from Last 3 Months Immunizations Name Administration Dates Next Due Hepatitis A-Hepatitis B Adul t (Twinrix) 18yo and older 08/24/2011,03/25/2011,02/23/2011 Hepatitis B (Nkktwib-U-Kfsvv , Recombivax HB-Adult) 19yo and older 02/27/2017,12/26/2016 Tdap Tetanus diptheria acell ular pertussis (Boostrix; Adacel) 7yo and older 09/18/2013 Surgical History Surgery Date Site/Laterality Comments SECTION PROCEDURE: HISTORICAL DELIVERY; COMMENT: x3 OTHER SURGICAL HISTORY 11/2017 Bilateral PROCEDURE: [place] LIG/TRNSXJ FLP TUBE ABDL/VAG APPR UNI/BI; COMMENT: Essure removal APPENDECTOMY PROCEDURE: [place] APPENDECTOMY OTHER SURGICAL HISTORY PROCEDURE: ARTHROSCOPY PROCEDURE NEC SHOULDER ARTHROSCOPY 09/2016 Left PROCEDURE: [place] SURGICAL ARTHROSCOPY SHOULDER W/LSS&RESCJ ADS; COMMENT: right 09/2016 STOMACH SURGERY 03/2017 PROCEDURE: [place] UNLISTED PROCEDURE STOMACH; COMMENT: gastric sleeve [facility] THYROIDECTOMY 2005 Bilateral PROCEDURE: HISTORICAL TOTAL THYROIDECTOMY OTHER SURGICAL HISTORY 2016 Right PROCEDURE: NERVE STIMULATOR FOR [place] GASTRIC BYPASS PROCEDURE: GASTRIC BYPASS FOR OBESIT HYSTERECTOMY 11/2019 PROCEDURE: HISTORICAL HYSTERECTOMY; COMMENT: Robotic TLH BREAST BIOPSY 04/2020 Left PROCEDURE: [place] BIOPSY BREAST OPEN INCISIONAL; COMMENT: @ [facility] Ctr-benign fibocystic changes Medical History Medical [...] 11/24/2015 DX:Dyspare unia in female Thyroid cancer ([facility]/HCC V24, [facility]/HCC V28) 2004 DX:Thyroid cancer (HCC) Blood type, [...] CS-Un spec Epidur al Livin g Delivery Location:[place] 2007 SAB 20w 0d Comments:cerclage infe ction 2008 Term 40w 0d 3827 g (135 oz) F CS-LT ranv Spinal Livin g [address] Selma liang Complications:None Delivery Location:[facility] 2013 Term 37w 0d 2580 g (91 oz) F CS-Un spec Epidur al Livin g [address] Selma liang Delivery Location:[facility] Last Filed Vital Signs Vital [...] Anatomical Region Laterality Modality Breast Bilateral Mammography [facility] Provider IMG BI PROCEDURES Final R esult * HIV Screening (06/29/2020) HIV Screening abstracted [facility] Provider HEALTH MAINTENANCE Final Result * Hepatitis C Screening (06/29/2020) Hepatitis C Screening abstracted [facility] Provider HEALTH MAINTENANCE Final Result * Cervical Cancer Screening: HPV (04/20/2016) Cervical Cancer Screening: HPV abstracted, negative [facility] Provider HEALTH MAINTENANCE Final Result from Last 3 Months or Most Recently Relevant to Health Maintenance Insurance [facility] [employer] Care Teams Folder Machine Adjuster Relationship Specialty Start Date End Date Tez Clifford MD [address] [place] [address] [address] [place] PCP - General 11/17/09
--- OUTSIDE RECORDS SUMMARY | 2024-09-16 11:38 | XMS_ITS | Clinical Summary ---
Author Organization [facility] Address [address] [phone] Phone Care Team Providers Care Automotive Electrical Helper Name Role Phone Tez Clifford MD Primary Care Provider +1 [phone] Allergies No known active allergies Medications cholecalciferol [...] this topic Medical Devices Implanted Type Area Electronic Imaging System Operator Device Identifier Shelf Expiration Date Model / Serial / Lot Stimulator Stimulator Right: Buttocks Insurance ACO ACO ACO ACO ACO ACO Advance Directives For more information, please contact: [phone] (9AM - 5PM Kathy/[place], Monday-Monday) * Full Code (Latest Code Status on File) Date Activated Date Inactivated Comments 05/04/2023 10:46 AM Question Answer Comments Code Status Confirmed With: Patient Care Teams Automotive Electrical Helper Relationship Specialty Start Date End Date Tez Clifford MD [address] [place] [address] [place] [address] PCP - General Internal Medicine 11/22/22 Additional Source Comments The information contained in this document represents components of the legal health record. It is not the complete legal health record.[facility]
== END 2024-09-13 09:47 | disposition home or self-care (01) ==
LOC: HO.LNP 09:46
PROVIDERS: Visit Provider Nurse Practitioner Family
DX: Z13.89 Encounter for screening for other disorder (principal)
CPT/HCPCS: 83013

== ENCOUNTER 2024-10-07 08:42 | Outpatient (REF) | payer OTHER, SELFPAY ==
--- NOTE | ~2024-10-07 | MM_ITS ---
EXAMINATION: MM SCREENING DIGITAL BREAST TOMOSYNTHESIS, BILATERAL CLINICAL INFORMATION: Screening. Asymptomatic. COMPARISON: Mammography: Comparison is made with available priors TECHNIQUE: Digital breast mammography with tomosynthesis is performed in both the craniocaudal and mediolateral oblique views along with computer-aided detection (CAD). FINDINGS: There are scattered areas of fibroglandular density (ACR BI-RADS breast composition Category b). Bilateral reduction mammoplasty. Right: Asymmetry lateral breast anterior to middle depth on CC view. Asymmetry inferior breast middle to posterior depth on MLO view. No suspicious other abnormal findings. No suspicious calcifications. Left: There are no significant masses, abnormal calcifications, or other abnormalities. MM/MM tomosynthesis screening BI IMPRESSION: Additional imaging is recommended ASSESSMENT: BI-RADS BI-RADS 0 - Incomplete: Needs additional Imaging. RECOMMENDATION: 1. Additional views of the right breast. 2. Targeted ultrasound if warranted after review of the additional views. 3. Radiology department staff will contact the patient for additional imaging. Additional Imaging required This examination should not preclude the clinical evaluation of a suspicious palpable abnormality. This patient's information was entered into a reminder system with a target due date for their next mammogram. Electronically signed by: Susan Inman DO 10/08/2024 02:51 PM EDT
--- OUTSIDE RECORDS SUMMARY | 2024-10-07 09:12 | XMS_ITS | Clinical Summary ---
Author Organization [facility] Address [address] [phone] Phone Care Team Providers Care Armored Truck Driver Name Role Phone Tez Clifford MD Primary Care Provider +1 [phone] Allergies No known active allergies Medications cholecalciferol [...] this topic Medical Devices Implanted Type Area Crane Chaser Device Identifier Shelf Expiration Date Model / Serial / Lot Stimulator Stimulator Right: Buttocks Insurance ACO ACO ACO ACO ACO ACO Advance Directives For more information, please contact: [phone] (9AM - 5PM Kathy/[place], Monday-Monday) * Full Code (Latest Code Status on File) Date Activated Date Inactivated Comments 05/04/2023 10:46 AM Question Answer Comments Code Status Confirmed With: Patient Care Teams Armored Truck Driver Relationship Specialty Start Date End Date Tez Clifford MD [address] [place] [address] [place] [address] PCP - General Internal Medicine 11/22/22 Additional Source Comments The information contained in this document represents components of the legal health record. It is not the complete legal health record.[facility]
--- OUTSIDE RECORDS SUMMARY | 2024-10-07 09:12 | XMS_ITS | Clinical Summary ---
Author Organization [address] [place] [address] [place] [phone] Phone Care Team Providers Care Assistant Produce Manager Name Role Phone Tez Clifford MD Primary [...] Description 07/15/2024 Telephone Obstetrics & Gynecology - [address] [phone] Brigida Sanford CNM menopausal from Last 3 Months Immunizations Name Administration Dates Next Due Hepatitis A-Hepatitis B Adul t (Twinrix) 18yo and older 08/24/2011,03/25/2011,02/23/2011 Hepatitis B (Ndodsbf-E-Qfife , Recombivax HB-Adult) 19yo and older 02/27/2017,12/26/2016 Tdap Tetanus diptheria acell ular pertussis (Boostrix; Adacel) 7yo and older 09/18/2013 Surgical History Surgery Date Site/Laterality Comments SECTION PROCEDURE: HISTORICAL DELIVERY; COMMENT: x3 OTHER SURGICAL HISTORY 11/2017 Bilateral PROCEDURE: CT LIG/TRNSXJ FLP TUBE ABDL/VAG APPR UNI/BI; COMMENT: Essure removal APPENDECTOMY PROCEDURE: CT APPENDECTOMY OTHER SURGICAL HISTORY PROCEDURE: ARTHROSCOPY PROCEDURE NEC SHOULDER ARTHROSCOPY 09/2016 Left PROCEDURE: CT SURGICAL ARTHROSCOPY SHOULDER W/LSS&RESCJ ADS; COMMENT: right 09/2016 STOMACH SURGERY 03/2017 PROCEDURE: CT UNLISTED PROCEDURE STOMACH; COMMENT: gastric sleeve [facility] THYROIDECTOMY 2005 Bilateral PROCEDURE: HISTORICAL TOTAL THYROIDECTOMY OTHER SURGICAL HISTORY 2016 Right PROCEDURE: NERVE STIMULATOR FOR [place] GASTRIC BYPASS PROCEDURE: GASTRIC BYPASS FOR OBESIT HYSTERECTOMY 11/2019 PROCEDURE: HISTORICAL HYSTERECTOMY; COMMENT: Robotic TLH BREAST BIOPSY 04/2020 Left PROCEDURE: CT BIOPSY BREAST OPEN INCISIONAL; COMMENT: @ [facility] Ctr-benign fibocystic changes Medical History Medical [...] 11/24/2015 DX:Dyspare unia in female Thyroid cancer ([facility]/HCC V24, [facility]/HCC V28) 2004 DX:Thyroid cancer (HCC) Blood [...] CS-Un spec Epidur al Livin g Delivery Location:[place] 2007 SAB 20w 0d Comments:cerclage infe ction 2008 Term 40w 0d 3827 g (135 oz) F CS-LT ranv Spinal Livin g [address] Selma liang Complications:None Delivery Location:[facility] 2013 Term 37w 0d 2580 g (91 oz) F CS-Un spec Epidur al Livin g [address] Selma liang Delivery Location:[facility] Last Filed Vital Signs Vital Sign Reading [...] Anatomical Region Laterality Modality Breast Bilateral Mammography [facility] Provider IMG BI PROCEDURES Final R esult * HIV Screening (06/29/2020) HIV Screening abstracted [facility] Provider HEALTH MAINTENANCE Final Result * Hepatitis C Screening (06/29/2020) Hepatitis C Screening abstracted [facility] Provider HEALTH MAINTENANCE Final Result * Cervical Cancer Screening: HPV (04/20/2016) Cervical Cancer Screening: HPV abstracted, negative [facility] Provider HEALTH MAINTENANCE Final Result from Last 3 Months or Most Recently Relevant to Health Maintenance Insurance [facility] [employer] Care Teams Assistant Produce Manager Relationship Specialty Start Date End Date Tez Clifford MD [address] [place] [address] [address] [place] PCP - General 11/17/09
== END 2024-10-07 08:43 | disposition home or self-care (01) ==
LOC: HO.MAMMO 08:42
PROVIDERS: PCP Internal Medicine; Visit Provider Internal Medicine
DX: Z12.31 Encounter for screening mammogram for malignant neoplasm of breast (principal)
CPT/HCPCS: 77063; 77067

== ENCOUNTER → 2024-10-07 09:00 | Outpatient (BNV) | payer OTHER, SELFPAY | PROVIDERS: PCP Internal Medicine; Visit Provider Internal Medicine | DX: Z12.31 Encounter for screening mammogram for malignant neoplasm of breast (principal) | CPT/HCPCS: 77063; 77067 ==

== ENCOUNTER 2024-11-12 10:38 | Outpatient (REF) | payer OTHER, SELFPAY ==
--- NOTE | ~2024-11-12 | MM_ITS ---
EXAMINATION(S): 1. MM DIAGNOSTIC DIGITAL BREAST TOMOSYNTHESIS, RIGHT 2. Targeted ultrasound of the right breast CLINICAL INFORMATION: Callback from screening for right breast findings: -Right asymmetry in the lateral breast on the CC view -Right asymmetry in the inferior breast on the MLO view COMPARISON: Comparison made to multiple prior, most recent , and most remote . TECHNIQUE: Digital breast tomosynthesis is performed in along with computer-aided detection (CAD). Synthesized 2D images are generated from the tomosynthesis. FINDINGS: BREAST COMPOSITION: There are scattered areas of fibroglandular density. RIGHT BREAST: The asymmetry seen in the lateral breast on the CC view measuring approximately 1.7 cm long at 5.7 cm from the nipple appears to correlate with the asymmetry seen in the inferior breast on the MLO view at about 6.6 cm from the nipple. Both findings persist with spot compression. Targeted ultrasound of the right breast was performed at the location of the mammographic finding. The survey shows a 1.5 x 0.4 x 1.2 cm hypoechoic area at 9 o'clock position at 6 cm from the nipple. No internal vascularity demonstrated with color Doppler evaluation. MM/MM tomosynthesis added views R IMPRESSION: RIGHT BREAST: 1.5 cm hypoechoic area at 9 o'clock position 6 cm from the nipple, most likely correlates with the focal asymmetry in the lower outer quadrant. Findings could be related to the previous history of reduction mammoplasty. Probably benign. A 6-month follow-up mammogram and ultrasound is recommended. ASSESSMENT: BI-RADS: Category 3: Probably benign RECOMMENDATION: 6 Month F/U Results were provided to the patient at time of visit by the technologist. This patient's information was entered into a reminder system with a target due date for their next mammogram. Electronically signed by: Ridge Interiano MD 11/12/2024 04:35 PM EDT
--- OUTSIDE RECORDS SUMMARY | 2024-11-12 11:55 | XMS_ITS | Clinical Summary ---
Author Organization [address] [place] [address] [place] [phone] Phone Care Team Providers Care Cardiac Rehab Nurse Name Role Phone Tez Clifford MD [...] Diagnosed Date Overweight (BMI 25.0-29.9) 03/21/2023 Immunizations Immunization Administration Dates Next Due Hepatitis A-Hepatitis B Adul t (Twinrix) 18yo and older 08/24/2011,03/25/2011,02/23/2011 Hepatitis B (Gwhrvjr-K-Twaum , Recombivax HB-Adult) 19yo and older 02/27/2017,12/26/2016 [...] CO UNLISTED PROCEDURE STOMACH; COMMENT: gastric sleeve [facility] THYROIDECTOMY 2005 Bilateral PROCEDURE: HISTORICAL TOTAL THYROIDECTOMY OTHER SURGICAL HISTORY 2015 Right PROCEDURE: NERVE STIMULATOR FOR TX NV GASTRIC BYPASS PROCEDURE: GASTRIC BYPASS FOR OBESIT HYSTERECTOMY 11/2019 PROCEDURE: HISTORICAL HYSTERECTOMY; COMMENT: Robotic TLH BREAST BIOPSY 04/2020 Left PROCEDURE: CO BIOPSY BREAST OPEN INCISIONAL; COMMENT: @ [facility]-benign fibocystic changes Medical History Medical [...] 11/24/2015 DX:Dyspare unia in female Thyroid cancer ([facility]/HCC V24, CMS/HCC V28) 2004 DX:Thyroid cancer (HCC) Blood type, [...] Sexual Orientation Not on file Obstetrics History * This document contains information received from the source organization and may not represent a complete record from that organization. Para Term AB IAB SAB Ectopic Multiple Livin g Live Births 7 3 3 3 3 Date Outcome GA Total Labor Labor/2nd/3rd Weight Sex Type Anes PTL Nelia A1 A5 Name Clin 1998 1998 2000 Term 41w 0d 3260 g (115 oz) M CS-Un spec Epidur al Livin g Delivery Location:[place] 2008 2009 2010 Term 40w 0d 3827 g (135 oz) F CS-LT ranv Spinal Livin g [address] Selma liang Complications:None Delivery Location:[facility] 2013 Term 37w 0d 2580 g (91 oz) F CS-Un spec Epidur al Livin g [address] Selma liang Delivery Location:[facility] Filed Vital Signs Vital Sign Reading [...] Anatomical Region Laterality Modality Breast Bilateral Mammography [facility] Provider IMG BI PROCEDURES Final R esult * HIV Screening (06/29/2020) HIV Screening abstracted [facility] Provider HEALTH MAINTENANCE Final Result * Hepatitis C Screening (06/29/2020) Hepatitis C Screening abstracted [facility] Provider HEALTH MAINTENANCE Final Result * Cervical Cancer Screening: HPV (04/20/2016) Cervical Cancer Screening: HPV abstracted, negative [facility] Provider HEALTH MAINTENANCE Final Result from Last 3 Months or Most Recently Relevant to Health Maintenance Insurance [facility] Care Teams Cardiac Rehab Nurse Relationship Specialty Start Date End Date Tez Clifford MD [address] [place] [address] Dr [address] DONOVAN Noriega PCP - General 11/17/09
== END 2024-11-12 10:39 | disposition home or self-care (01) ==
LOC: HO.MAMMO 10:38
PROVIDERS: PCP Internal Medicine; Visit Provider Internal Medicine
DX: N64.89 Other specified disorders of breast (principal)
CPT/HCPCS: 76642; 77061; 77065

== ENCOUNTER → 2024-11-12 11:00 | Outpatient (BNV) | payer OTHER, SELFPAY | PROVIDERS: PCP Internal Medicine; Visit Provider Radiology Body Imaging | DX: N63.13 Unspecified lump in the right breast, lower outer quadrant (principal) | CPT/HCPCS: 76642; 77061; 77065 ==

== ENCOUNTER 2024-12-10 08:07 | Outpatient (AMB) | payer OTHER, SELFPAY ==
[2024-12-10 08:20] VITALS: BP 90/62; PULSE 66; BMI 30.5
--- NOTE | 2024-12-10 08:20 | MHC.OFFVIS ---
Vital Signs 12/10/24 08:20 Height 5 ft 3 in Weight 171 lb 15.369 oz BMI 30.5 BP 90/62 Blood Pressure Location Lt brachial Position Sitting Pulse 66 Pulse Source Pulse Oximeter Intake Visit Reasons: r/s 10/03-10/15 1 yr followup w/ekg Fine Artist Required: No Justowriter Operator: Justowriter Operator Present Allergies gabapentin Adverse Reaction (Mild, Verified 12/10/24 08:25) drowsiness Medication List - Last Reconciled 12/10/24 by Luba Ruiz NP-C [ANKLE BRACE (bilateral) As directed] calcium carbonate (Riky-Gest Antacid) mg PO cholecalciferol (vitamin D3) (Vitamin D3) 50 mcg PO DAILY cyanocobalamin (vitamin B-12) 1,000 mcg (2 x 500 mcg) PO DAILY 90 days cyclobenzaprine 5 mg PO TID PRN diclofenac sodium 1% (Voltaren Arthritis Pain) 4 grams topical QID PRN diclofenac sodium 75 mg PO BID PRN esomeprazole magnesium (Nexium) 40 mg PO DAILY famotidine 20 mg PO BID 90 days fluoxetine 10 mg PO DAILY 90 days hydroxyzine HCl 25 mg PO TID PRN ibuprofen 600 mg PO Q6H PRN levothyroxine 175 mcg PO DAILY [ORTHOTIC SUPPORT ANKLET for PLANTAR FASCIITIS As directed] simethicone (Gas Relief (simethicone)) 125 mg PO TID-QID PRN HPI HPI r/s 10/03-10/15 1 yr followup w/ekg: Details: Marianela is a 49-year-old female with history of thyroid cancer status post thyroidectomy 2004, syncope and heart palpitations who presents for follow-up. Today she reports that she will feel her heart pounding when she does physical activities. It does not bother her as much when she is resting. She reports having issues with fatigue and does not sleep well at night. She says her daughter has autism and is up at times in the night. This wakes her and she does not get deep sleep. 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 No recent episodes of presyncope or syncope. No chest discomfort at rest or with activity. No shortness of breath, PND, orthopnea or edema. She is normally active throughout the day. Takes meds as directed. [facility] Medical History Overweight (BMI 25.0-29.9) Cervical disc disease Lumbar spondylosis Anxiety Vitamin D deficiency Vitamin B12 deficiency Constipation Abnormal ultrasound of breast H/O radioactive iodine thyroid ablation (~2008) Depression Insomnia Thoracic vertebral fracture Patellofemoral arthritis GERD (gastroesophageal reflux disease) Acquired hypothyroidism Fibromyalgia Surgical History History of esophagogastroduodenoscopy (EGD) Hx of colonoscopy H/O hand surgery S/P hysterectomy S/P laparoscopic sleeve gastrectomy (~03/16/17) History of arthroscopy of left shoulder (~09/2016) History of arthroscopy of right shoulder (~08/2015) H/O thyroidectomy (~2008) Family History Father Cerebrovascular accident (CVA) Mother Diabetes Hypertension Social History Housing: House Alcohol intake: never Patient Tobacco Use Status: Never used Tobacco e-Cigarette/Vaping Use: Never Used Second Hand Smoke Exposure: Yes service: No Current occupational status: disabled Cognitive needs: No Hearing needs: No Vision needs: Yes Female Reproductive History Menstrual Age of Menarche: 10 Review of Systems Const All systems reviewed & are unremarkable except as noted in HPI and below Reports fatigue ENT Denies dizziness Card Denies chest pain, Denies chest pain at rest, Denies chest pain with activity, Reports rapid heart rate, Denies pedal edema, Denies edema, Denies leg edema, Denies lightheadedness, Denies palpitations, Denies dyspnea, Denies dyspnea on exertion and Denies orthopnea Resp Denies cough, Denies dyspnea and Denies dyspnea on exertion GI Denies hematochezia and Denies change in stool character Musc Denies abnormal gait, Denies limited range of motion, Denies muscle cramps, Denies muscle weakness, Denies numbness, Denies radiating pain into limb, Denies stiffness and Denies tingling Neuro Denies abnormal gait, Denies dizziness, Denies numbness and Denies tingling Endo Reports fatigue and Denies palpitations Physical Exam Vital Signs: Last Vital Signs Pulse 66 12/10/24 08:20 BP 90/62 12/10/24 08:20 BMI result Body Mass Index 30.5 Const General: cooperative, healthy appearing, comfortable and no acute distress Orientation/consciousness: patient oriented x3 Neck Neck: Yes normal visual inspection and Yes no JVD Resp Effort & Inspection: normal respiratory effort Auscultation: clear to auscultation bilaterally, no crackles, no rales, no rhonchi and no wheezes Cardio Jugular venous distension: no JVD Rate: regular rate Rhythm: regular rhythm Heart sounds: S1 normal heart sound present, S2 normal heart sound present, no murmurs and no rubs Peripheral pulses: Peripheral pulses 2+ throughout Neuro General: patient oriented x3 Extrem General: Yes normal to inspection, No no pedal edema and No calf tenderness Psych Appearance: grossly normal Mental Status: mental status grossly normal Speech and movement: Normal speech and movement present Office Procedures EKG Details: Today, read by me, normal sinus rhythm, nonspecific T-wave abnormality, rate 66, QTC 429 milliseconds [id number], Complete Assessment & Plan Assessment & Plan (1) Palpitations: Code(s): R00.2 - Palpitations Category: Medical Plan: Prior reports of heart palpitations where her heart suddenly will beat fast lasting up to 5 minutes before going back to normal. She has had syncopal event in the past that she says was followed by heart palpitations. No recent or recurrent presyncope or syncope. Her symptoms were concerning for possible supraventricular tachycardia, less likely to be atrial fibrillation, however no arrhythmia documented. For evaluation she had an echocardiogram done 03/24/2023 showed EF 60%, no valve abnormalities and no regional wall motion abnormalities. A Holter monitor was done on 03/24/2023 for 5.5 days showing sinus rhythm with average heart rate 72, rare PACs. Cardiac event monitor was done on 05/01/2023 for 30 days with 75% compliance. It showed sinus rhythm with a heart rate range between 67 and 130 with rare PVCs, she triggered the symptom button 46 times most of which correlated with sinus rhythm, 25% of the time it correlated with PVCs. EKG done today showing normal sinus rhythm with nonspecific T-wave abnormality, rate 66. No new or changing palpitations. Currently occurring only with physical activity. No further evaluation or med management needed at this time. Reviewed need for adequate rest, avoidance of caffeinated beverages, maintain good hydration and stress reduction. Cardiology follow-up PRN. (2) Syncope: Code(s): R55 - Syncope and collapse Category: Medical Qualifiers: Syncope type: unspecified Qualified Code(s): R55 - Syncope and collapse Plan: No recurrent events. Unclear full cause of her syncopal event but no significant cardiac findings have been identified. Plan Time spent on chart review, documentation, interview and assessment Coding Level of Care Code Est Pt Level 3 (60015) Complex EM visit Add On G2211 Diagnoses Palpitations R00.2 Syncope, unspecified syncope type R55 Syncope type: unspecified CPT Codes EKG - CPT: 81923-[id number], Complete ([id number]) Time Spent (min) 22
--- OUTSIDE RECORDS SUMMARY | 2024-12-10 08:24 | XMS_ITS | Encounter Summary ---
Author Organization [facility] Address [address] [place] [phone] Phone Care Team Providers Care Slipper Maker Name Role Phone Tez Clifford MD Primary Care Provider [phone] Encounter Details Date Type Department Care Team (Late st Contact Info) Description 05/04/2023 Procedure Pass OR Admitting Dept - Virtual Department [address] [place] [address] Social History Tobacco Use Types Packs/Day Years Used Date Smoking Tobacco: Never Smokeless Tobacco: Never Alcohol Use Standard Drinks/Week Comments Never 0 [...] on file documented as of this encounter Plan of Treatment Not on file documented as of this encounter Visit Diagnoses Not on filedocumented in this encounter Care Teams Slipper Maker Relationship Specialty Start Date End Date Tez Clifford MD [address] [place] [address] [place] [address] PCP - General Internal Medicine 11/22/22 documented as of this encounter Additional Source Comments The information contained in this document represents components of the legal health record. It is not the complete legal health record.[facility]
--- OUTSIDE RECORDS SUMMARY | 2024-12-10 08:24 | XMS_ITS | Clinical Summary ---
Author Organization [facility] Address [address] [place], [place] [id number] Phone Care Team Providers Care Central Aisle Cashier Name Role Phone Tez Clifford MD Primary Care Provider [phone] Allergies No known active allergies Medications cholecalciferol [...] FOBT 2021 SIGMOIDOSCOPY 2021 VIRTUAL COLONOSCOPY 2021 INFLUENZA VACCINE (#1) 2024 COVID-19 VACCINE (2024-2 6 season) 2024 SMOKING STATUS SCREENING (On ce After 26 [...] this topic Medical Devices Implanted Type Area Matrix Drier Tender Device Identifier Shelf Expiration Date Model / Serial / Lot Stimulator Stimulator Right: Buttocks Insurance ACO ACO ACO ACO ACO ACO Advance Directives For more information, please contact: [phone] (9AM - 5PM [place], Monday-Monday) * Full Code (Latest Code Status on File) Date Activated Date Inactivated Comments 05/04/2023 10:46 AM Question Answer Comments Code Status Confirmed With: Patient Care Teams Central Aisle Cashier Relationship Specialty Start Date End Date Tez Clifford MD [address] [place] [address] [place] [address] PCP - General Internal Medicine 11/22/22 Additional Source Comments The information contained in this document represents components of the legal health record. It is not the complete legal health record.[facility]
--- OUTSIDE RECORDS SUMMARY | 2024-12-10 08:25 | XMS_ITS | Data Portability ---
Author Organization DONOVAN PERALTA MD [facility], Main Office Address [address] [place] [address] Assessment Encounter Date Assessment Date Assessment LastModified by Organization Details LastModified Time 11/14/2023 11/14/2023 Audio. telemedicine. 16 min; doximity cmartorell Not available 11/14/2023 12:04:27 05/15/2024 05/15/2024 Audio. telemedicine. 16 min; doximity cmartorell Not available 05/15/2024 11:42:21 11/14/2024 11/14/2024 Audio. telemedicine. 15 min; bhavna STREETER In office in [place]; pt home in [place] cmartorell Not available 11/14/2024 15:49:59 Plan of Treatment Reminders Order Date Submit Date Provider Last Modified By Organization Details Last Modified Time Details Appointments None recorded. Lab None recorded. Referral None recorded. Procedures None recorded. Surgeries None recorded. Imaging None recorded. Medication Orders fluconazole 100 mg tablet 2024 025 [id number], [address] [place] [address], [address], 15:54:02 fluconazole 100 mg tablet 2024 025 [id number], [address] [place], [address], 10:12:43 fluconazole 100 mg tablet 2023 024 [id number], [address] [place], [address], 4 12:03:18 Patient TargetsNo targets recorded. Patient InstructionsNo instructions recorded. Reason for Referral None Reported. Problems Name Problem SNOMED Code Status Onset Date Resolution Date Notes Provider Name and Address Organization Details Recorded Time Herpesviru s infection [id number] Active 2016 Herpesvira l infection, unspecifie d; snomeddesc ription: Herpes simplex; Report Immunity to Registry: Yes; Notes: HSV 1 pos serology; HSV 2 neg; Not Available [facility] 4 06:59:39 Herpes simplex 76817278 Active 2016 Herpes simplex; snomeddesc ription: Herpes simplex; Report Immunity to Registry: Yes; Notes: HSV 1 pos serology; HSV 2 neg; Not Available [facility] 4 06:59:39 Candidiasi s of vagina 58773781 Active 2016 Candidiasi s of vagina; snomeddesc ription: Candidiasi s of vagina; Report Immunity to Registry: Yes; Notes: MARVIN ALBICANS /DUBLINIEN SIS 06/2016; Candidias is of vulva and vagina; snomeddesc ription: Candidiasi s of vagina; Report Immunity to Registry: Yes; Notes: MARVIN ALBICANS /DUBLINIEN SIS 06/2016; Not Available [facility] 4 06:59:39 Problem Notes None recorded. [...] 7; VACCINE_ IND: no; SU_FULL_ NAME: Yary fuller; Not Available Not Available Not Available levothyro [...] no; Not Available Not Available Not Available esomepraz ole magnesium 40 mg capsule,d elayed release TAKE 1 CAPSULE BY MOUTH EVERY DAY active Not Available Not Available No t Available levothyro xine 125 mcg tablet TAKE [...] layed release TAKE 1 TABLET BY MOUTH 2 TIMES A DAY NEEDED FOR SEVERE PAIN active Not Available [...] 30; VACCINE_ IND: no; SU_FULL_ NAME: Yary Thomsonfco fuller; Not Available Not Available Not Available Jose Luis-[place] ot 0.025 mg/[address] 1 PATCH ON THE SKIN 2 TIMES A WEEK. active Not Available Not Available No t Available cyclobenz aprine 5 mg tablet TAKE [...] 30; VACCINE_ IND: no; SU_FULL_ NAME: Yary Thomsonfco fuller; Not Available Not Available Not Available cholecalc [...] Diagnosis SNOMED-CT Code Diagnosis ICD10 Code Diagnosis IMO Codes Diagnosis Note 52801 Yary Melendez MD Main Office [address] [place] [phone] 05/18/2023 15:20:24 05/18/2023 15:26:49 Candidal vulvovaginitis [id number] B37.31 stablehx recurrence especially when sexually active.she will call if needs refill of antifungal cream or if develops genital discharge. aware of preP availablit y.no refills needed at current [facility] rveiewed [address]2617 Yary Melendez MD Main Office [address] [place] [phone] 11/14/2023 09:24:46 11/14/2023 12:06:38 Candidal vulvovaginitis [id number] B37.31 stablehx recurrence especially when sexually active.on qw fluconazol e for suppressio nshe will call if needs refill of antifungal cream or if develops genital vaginal discharge. aware of preP availablit y.no refills needed at current imeplan of care reviewed [address] Yary Melendez MD Main Office [address] [place] [phone] 05/15/2024 09:48:34 05/15/2024 10:45:17 Candidal vulvovaginitis 39823461 B37.31 stablehx recurrence especially when sexually active.on qw fluconazol e for suppressio nshe will call if needs refill of antifungal cream or if develops genital vaginal discharge. aware of preP availablit y and DOXYPEPwil l obtain labs drawn at PCPplan of care reviewed [address] Yary Melendez MD Main Office [address] [place] [phone] 11/14/2024 15:44:00 11/14/2024 17:21:34 Candidal vulvovaginitis 40003678 B37.31 stablehx recurrence especially when sexually active.on PRN fluconazol e for suppressio n/preventi on as neededshe will call if needs refill of antifungal cream or if develops genital vaginal discharge. will obtain labs results drawn at PCPplan of care reviewedfl u vaccine recommende d Health Concerns Section Related Observation LastModified by Organization Detai ls LastModified Time None Recorded Concern Status LastModified by Organization Details LastModified Time None Recorded Advance Directives Directive None Recorded Payers Insurance Date Sequence Insurance Name Policy Number Policy Lindo Covered Member ID Lindo Member ID Guarantor Name 11/13/2024 1 [facility] [employer] - HEALTH NET PLAN (MEDICAID HMO) [employer] Marianela E Shaikh Lopez [id number] Marianela E Shaikh Lopez Notes Date Note Type Note Provider Name and Address Organization Details Recorded Time 4 text/html ROS as noted in the HPI marvin vulvovaginitislast seen 2022no new infectionshas not needed antifungal meds.no other infectionsunderwent recently panniculectomy last monthno need for refillsshe thinks she is better with no infection relapse due to not being sexually active.no BV sx.no rash Yary Melendez MD [address] [place] [address], [phone], DONOVAN MELENDEZ MD [facility] 05/18/2023 15:25:30 4 text/html ROS as noted in the HPI marvin vulvovaginitisno new infections while on suppression tx which she is using qw.no other infectionsno need for refillsshe thinks she is better with no infection relapse due to decreased sexually active, and the suppression tx. mild sx when sexually active, but overall no flareups.no BV sx.no rashno fevermed list rveiewed. Yary Melendez MD [address] [place] [address], [phone], DONOVAN MELENDEZ MD [facility] 11/14/2023 12:06:13 5 text/html ROS as noted in the HPI marvin vulvovaginitison fluconazole qw for suppressionno new infections while on suppression txno other infectionsno discharge. no rash.no abd pain;no dysuriano BV sx.no rashno fevermed list reviewed. Yary Melendez MD [address] [place] [address], [phone], DONOVAN MELENDEZ MD [facility] 05/15/2024 11:43:12 5 text/html ROS as noted in the HPI marvin vulvovaginitis on fluconazole po prn after sexual activity;works well and prevents a flareup when taken that way as needed.she is not on weekly tx; she takes fluconazole 1 atb as needed after sexual activity.no sxno new infections while on as needed tx.has been on qw suppression in the past which has helped her as well in decreasing frequency of flareups; she believed PRN is the one providing best results/outcomes.no other infections no discharge. no rash. no abd pain; no dysuria no BV sx. no rash no fever Yary Melendez MD [address] [place] [address], [phone], DONOVAN MELENDEZ MD [facility] 11/14/2024 15:54:05 OBGyn Episode No OBEpisode recorded.
== END 2024-12-10 08:48 | disposition home or self-care (01) ==
LOC: HO.HCS 08:08
PROVIDERS: PCP Internal Medicine; Visit Provider Nurse Practitioner Family
DX: R00.2 Palpitations (principal); R55 Syncope and collapse
CPT/HCPCS: 93010; 99213

== ENCOUNTER → 2024-12-10 08:07 | Outpatient (BNVA) | payer OTHER, SELFPAY | PROVIDERS: PCP Internal Medicine; Visit Provider Nurse Practitioner Family | DX: R00.2 Palpitations (principal); R55 Syncope and collapse; R94.31 Abnormal electrocardiogram [ECG] [EKG] | CPT/HCPCS: 93005; 99212 ==

== ENCOUNTER 2024-12-17 08:45 | Outpatient (REF) | payer OTHER, SELFPAY ==
--- NOTE | ~2024-12-17 | FL_ITS ---
EXAMINATION: FLUOROSCOPY BARIUM SWALLOW FLUOROSCOPY UPPER GI SERIES CLINICAL INFORMATION: Gastroesophageal reflux disease COMPARISON: Upper GI series 03/20/2017 TECHNIQUE: Under fluoroscopy, Effervescent granules, thick and thin barium, and a barium pill were administered orally, barium swallow and upper GI evaluation was performed. FLUOROSCOPY TIME: 1.2 minutes DOSE AREA PRODUCT: 102 mgy FINDINGS Swallowing: Normal swallowing reflex. Normal motility. No penetration or aspiration events occurred throughout the duration of the study. Esophagus: Normal caliber and motility.. No esophageal mass or ulceration is seen. No fixed stricture is seen. Patient was unable to swallow barium pill. Gastroesophageal Reflux: None. No spontaneous reflux noted during the examination. Stomach : Redemonstrated surgical changes of prior partial gastrectomy... No mass or mucosal lesions are seen in the stomach.. There is normal passage of the barium through the stomach to the small bowel. FL/FL upper GI w air w Ba Swallow IMPRESSION: No significant abnormality identified by barium study. Electronically signed by: Shayne Vance MD 12/17/2024 02:29 PM [facility]
--- OUTSIDE RECORDS SUMMARY | 2024-12-17 09:15 | XMS_ITS | Clinical Summary ---
Author Organization [address] [place] [address] [place] [phone] Phone Care Team Providers Care Campus Monitor Name Role Phone Tez Clifford MD Primary Care Provider [phone] Allergies No known active allergies Medications cholecalciferol [...] (Twinrix) 18yo and older 08/24/2011,03/25/2011,02/23/2011 Hepatitis B (Jscyplp-B-Wfzdm , Recombivax HB-Adult) 19yo and older 02/27/2017,12/26/2016 Tdap Tetanus diptheria acell ular pertussis (Boostrix; Adacel) 7yo and older 09/18/2013 Surgical History Surgery Date Site/Laterality Comments SECTION PROCEDURE: HISTORICAL DELIVERY; COMMENT: x3 OTHER SURGICAL HISTORY 11/2017 Bilateral PROCEDURE: LA LIG/TRNSXJ FLP TUBE ABDL/VAG APPR UNI/BI; COMMENT: Essure removal APPENDECTOMY PROCEDURE: LA APPENDECTOMY OTHER SURGICAL HISTORY PROCEDURE: ARTHROSCOPY PROCEDURE NEC SHOULDER ARTHROSCOPY 09/2016 Left PROCEDURE: LA SURGICAL ARTHROSCOPY SHOULDER W/LSS&RESCJ ADS; COMMENT: right 09/2016 STOMACH SURGERY 03/2017 PROCEDURE: LA UNLISTED PROCEDURE STOMACH; COMMENT: gastric sleeve [facility] THYROIDECTOMY 2005 Bilateral PROCEDURE: HISTORICAL TOTAL THYROIDECTOMY OTHER SURGICAL HISTORY 2015 Right PROCEDURE: NERVE STIMULATOR FOR TX [place] GASTRIC BYPASS PROCEDURE: GASTRIC BYPASS FOR OBESIT HYSTERECTOMY 11/2019 PROCEDURE: HISTORICAL HYSTERECTOMY; COMMENT: Robotic TLH BREAST BIOPSY 04/2020 Left PROCEDURE: LA BIOPSY BREAST OPEN INCISIONAL; COMMENT: @ [facility]-benign fibocystic changes Medical History Medical [...] 11/24/2015 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 Selma liang Complications:None Delivery Location:[facility] 2013 Term 37w 0d 2580 g (91 oz) F CS-Un spec Epidur al Livin g [address] Selma liang Delivery Location:[facility] Filed Vital Signs Vital Sign Reading [...] Health Maintenance Due Date Last Done Comments Colorectal Cancer Screening: Colonoscopy 1976 COVID-19 Vaccine (#1) 1981 Cervical Cancer Screening: Pap Smear 04/21/2019 04/20/2016, 04/20/2016 Social Influencers of Health Screening 01/16/2022 DTaP,Tdap,and Td Vaccines (2 - Td or Tdap) 09/19/2023 09/18/2013 Influenza Vaccine (#1) 2024 Breast Cancer Screening 10/03/2025 10/04/2023 RSV Immunization Adult Patients (1 - 1-dose 75+ series) 07/02/2051 Hepatitis A Vaccines Aged Out 08/24/2011, 03/25/2011, [...] * HIV Screening (06/29/2020) HIV Screening abstracted [facility] Provider HEALTH MAINTENANCE Final Result * Hepatitis C Screening (06/29/2020) Hepatitis C Screening abstracted Historical Provider HEALTH MAINTENANCE Final Result * Cervical Cancer Screening: HPV (04/20/2016) Cervical Cancer Screening: HPV abstracted, negative Historical Provider HEALTH MAINTENANCE Final Result from Last 3 Months or Most Recently Relevant to Health Maintenance Insurance [employer] Care Teams Campus Monitor Relationship Specialty Start Date End Date Tez Clifford MD [address] [place] [address] Dr [address] [place] PCP - General 11/17/09
== END 2024-12-17 08:46 | disposition home or self-care (01) ==
LOC: HO.XRAY 08:45
PROVIDERS: PCP Internal Medicine; Visit Provider Nurse Practitioner Family
DX: K21.9 Gastro-esophageal reflux disease without esophagitis (principal)
CPT/HCPCS: 74246